=== PATIENT | female | born 1950 | race Caucasian/White ===

== ENCOUNTER → 2016-11-01 | Outpatient (CLI) | payer MEDICARE ==
--- NOTE | 2016-11-04 10:46 | MM ---
Reason for exam: screening (asymptomatic). Last mammogram was performed 1 year and 2 months ago. History: Patient is postmenopausal and had first child at age 37. MG discontinued stereo core LT of the left breast, August 08, 2014. Physical Findings: A clinical breast exam by your physician is recommended on an annual basis and results should be correlated with mammographic findings. MG 3D Screening Mammo W/Cad Bilateral CC and MLO view(s) were taken. Prior study comparison: September 05, 2015, bilateral MG 3d screening mammo w/cad. February 06, 2015, left breast MG 3d diag mammo w/cad LT. The breast tissue is extremely dense which could obscure a lesion on mammography. There is no suspicious abnormality. No significant changes when compared with prior studies. ASSESSMENT: Negative, BI-RAD 1 RECOMMENDATION: Routine screening mammogram of both breasts in 1 year.
== END | disposition home or self-care (01) ==
LOC: RADMAMWWP 08:47
PROVIDERS: ATTEND Family Medicine
DX: Z12.31 Encounter for screening mammogram for malignant neoplasm of breast (principal)
CPT/HCPCS: 77063; G0202

== ENCOUNTER → 2017-02-03 | Outpatient (CLI) | payer MEDICARE ==
--- NOTE | 2017-02-03 10:15 | US ---
EXAMINATION TYPE: US abdomen complete DATE OF EXAM: 02/03/2017 COMPARISON: NONE CLINICAL HISTORY: 66-year-old female Q61.01 Renal Cyst. TECHNIQUE: Multiple sonographic images of the abdomen are obtained. FINDINGS: Liver Length: 16.8 cm Gallbladder Wall: 0.2 cm CBD: 0.2 cm Spleen: 9.4 cm Right Kidney: 10.5 x 4.4 x 5.0 cm Left Kidney: 9.4 x 4.4 x 5.0 cm Pancreas: wnl Liver: wnl Gallbladder: wnl Evidence for sonographic Hernandez's sign: no CBD: wnl Spleen: wnl Right Kidney: No hydronephrosis. There is a 2.4 cm simple cyst at the lower pole. This previously me asured 2.7 cm. Left Kidney: No hydronephrosis. 7 mm echogenic focus at the mid to lower pole with associated typica l artifact suggests a nonobstructive calculus. Upper IVC: wnl Abd Aorta: Upper abdominal aorta borderline ectatic at 2.5 cm. IMPRESSION: 1. A 2.4 cm lesion lower pole right kidney is slightly smaller (2.7 cm previously) and now shows huong acteristics compatible with a benign, simple cyst. 2. Nonobstructive 7 mm left-sided renal calculus.
== END | disposition home or self-care (01) ==
LOC: RADUSWWP 08:31
PROVIDERS: ATTEND Family Medicine
DX: N20.0 Calculus of kidney (principal); N28.9 Disorder of kidney and ureter, unspecified
CPT/HCPCS: 76700

== ENCOUNTER → 2017-05-08 | Outpatient (CLI) | payer MEDICARE ==
--- NOTE | 2017-05-08 09:31 | CT ---
EXAMINATION TYPE: CT abdomen pelvis wo con DATE OF EXAM: 05/08/2017 COMPARISON: NONE HISTORY: Hematuria CT DLP: 250.3 mGycm Automated exposure control for dose reduction was used. TECHNIQUE: Helical acquisition of images from the lung bases through the pelvis. FINDINGS: Lack of intravenous contrast could compromise sensitivity. LUNG BASES: Minimal probable posterior dependent atelectatic changes or scarring present bilaterally. AORTA: No significant abnormality is appreciated. LIVER/GB: No significant abnormality is appreciated. PANCREAS: No significant abnormality is seen. SPLEEN: No significant abnormality is seen. ADRENALS: Some prominence of the adrenal glands suggestive of adrenal hyperplasia. KIDNEYS: Low dense focus is present at the lower pole of the right kidney compatible with possible cy st measuring 2.7 cm. There is a nonobstructive calculus in the lower pole the right kidney measuring approximately 6 to 7 mm, additional lower pole nonobstructive calculus measures approximately 3 to 4 mm, punctate calcifications are also present within the left kidney which do not appear obstructive. Proximal left ureteral calculus is present measuring approximately 3 to 4 mm. Mild left-sided hydrone phrosis. REPRODUCTIVE ORGANS: Not well seen. URINARY BLADDER: No significant abnormality is seen. BOWEL: Diverticular changes associated with the sigmoid colon. FREE AIR: No Free Air is visible. ASCITES: None visible. PELVIC ADENOPATHY: None visualized. RETROPERITONEAL ADENOPATHY: No Retroperitoneal Adenopathy visible. OSSEOUS STRUCTURES: Arthropathy noted within the hips. Degenerative disc changes in the lumbar spine . Spina bifida occulta noted within the sacrum IMPRESSION: BILATERAL NEPHROLITHIASIS, PROXIMAL LEFT URETERAL CALCULUS WITH MILD HYDRONEPHROSIS. Consider ultraso und follow-up for right renal cyst at the lower pole.
== END | disposition home or self-care (01) ==
LOC: RADCTMAIN 07:40
PROVIDERS: ATTEND Family Medicine
DX: N13.2 Hydronephrosis with renal and ureteral calculous obstruction (principal); Z88.0 Allergy status to penicillin; Z88.2 Allergy status to sulfonamides
CPT/HCPCS: 74176

== ENCOUNTER → 2017-05-27 | Outpatient (CLI) | payer MEDICARE ==
--- NOTE | 2017-05-27 10:12 | XR ---
EXAMINATION TYPE: XR KUB DATE OF EXAM: 05/27/2017 CLINICAL DATA: 67-year-old female with calculus of ureter, bilateral kidney stones, PHH COMPARISON: Correlation CT 05/08/2017 FINDINGS: Nonobstructive bowel gas pattern. Gassy bowel loops. Mild stool burden. A 7 mm right mid abdominal calcification is present. Bowel content obscures much of the left renal sh adow as well as a course of both ureters. Phlebolith in the low left hemipelvis and some vascular porsha cifications in the upper right hemipelvis. IMPRESSION: Known bilateral nephrolithiasis not well-seen on current radiograph secondary to prominent bowel cont ent. Only the dominant 7 mm right renal calculus is visualized.
== END | disposition home or self-care (01) ==
LOC: RADXRMAIN 09:30
PROVIDERS: ATTEND Urology
DX: N20.0 Calculus of kidney (principal)
CPT/HCPCS: 74018

== ENCOUNTER → 2018-02-11 | Outpatient (CLI) | payer MEDICARE ==
--- NOTE | 2018-02-11 08:15 | US ---
EXAMINATION TYPE: US abdomen comp/pelvis limited DATE OF EXAM: 02/11/2018 COMPARISON: CT 05/08/2017 and ultrasound 02/03/2017 CLINICAL HISTORY: 67-year-old female N28.9 Known renal disease or anomaly;cyst of rt ki. History of k idney stones TECHNIQUE: Multiple sonographic images of the abdomen and bladder are obtained. FINDINGS: EXAM MEASUREMENTS: Liver Length: 16.5 cm Gallbladder Wall: 0.2 cm CBD: 0.3 cm Spleen: 9.4 cm Right Kidney: 10.2 x 4.8 x 5.4 cm Left Kidney: 10.9 x 5.5 x 4.5 cm Pancreas: wnl Liver: slightly heterogeneous, possibly technical. No focal lesion. Gallbladder: wnl CBD: measures 0.6cm at the pancreatic head which can be within acceptable limits. Spleen: wnl Right Kidney: Mild fullness of renal pelvis, 2.5 cm cyst inferior pole, previously 2.4 cm, multiple calculi scattered throughout with largest measuring 0.6cm inferior pole. No calyceal dilatation is se en. Left Kidney: multiple small stones scattered throughout with largest measures 0.4cm inferior pole . No hydronephrosis. Upper IVC: wnl Abd Aorta: Upper abdominal aorta ectatic at 2.7 cm. Bladder: wnl Bilateral Jets Seen yes IMPRESSION: 1. Mild pelviectasis on the right versus extrarenal pelvis. No calyceal dilatation to suggest rossana h ydronephrosis. 2. Redemonstrated benign simple cyst measuring 2.5 cm at the right kidney lower pole. 3. Ectatic upper abdominal aorta are 2.7 cm. 4. Bilateral nonobstructive renal calculi measuring up to 6 cm.
== END | disposition home or self-care (01) ==
LOC: RADUSWWP 06:47
PROVIDERS: ATTEND Family Medicine
DX: N28.1 Cyst of kidney, acquired (principal); N20.0 Calculus of kidney; I77.811 Abdominal aortic ectasia
CPT/HCPCS: 76700; 76857

== ENCOUNTER → 2018-02-17 | Outpatient (CLI) | payer MEDICARE ==
--- NOTE | 2018-02-17 17:27 | BD ---
EXAMINATION TYPE: Axial Bone Density DATE OF EXAM: 02/17/2018 COMPARISON: 01.07.2014 CLINICAL HISTORY: 67 YR OLD FEMALE....ICD-10 CODE: M85.80 OSTEOPENIA Height: 66.3 Weight: 121 FRAX RISK QUESTIONS: Secondary Osteoporosis: YES 3. Menopause before 45: YES AT AGE 39 YRS OLD 4Current Tobacco Use: QUIT 5 YRS AGO RISK FACTORS HISTORY OF: Family History of Osteoporosis: YES, HER MOTHER Active: YES Diet low in dairy products/other sources of calcium: YES Postmenopausal woman: YES AT AGE 39... MEDICATIONS: Additional Medications: BP MEDS, ANTIANXIETY/DEPRESSANT, STATIN FOR CHOLESTEROL, VIT D Additional History: PADILLA, HYPERTENSION, CHOLESTEROL , EXAM MEASUREMENTS: Bone mineral densitometry was performed using the [employer] System. Bone mineral density as measured about the Lumbar spine is: ----- L1-L4(G/cm2): 0.889 T Score Values are as follows: ----- L1: -1.9 ----- L2: -2.0 ----- L3: -2.5 ----- L4: -3.2 ----- L1-L4: -2.4 Bone mineral density has: Decreased -8.9% since study of: 01.07.2014 Bone mineral density about the R hip (g/cm2): 0.709 Bone mineral density about the L hip (g/cm2): 0.704 T Score values are as follows: -----R Neck: -2.2 -----L Neck: -2.0 -----R Total: -2.4 -----L Total: -2.4 Bone mineral density has: Decreased -11.5% since study of: 01.07.2014 FRAX%s: THERE IS A 11.0% CHANCE FOR A MAJOR OSTEOPOROTIC FX AND A 2.5% FOR HIP FX....PROBABILITY OF FX IN 10 YRS TIME IMPRESSION: Osteoporosis (T Score less than -2.5). There is increased fracture risk and therapy is usually indicated based on age. Re-Screen 1-2 years. NOTE: T-SCORE=SD OF THE YOUNG ADULT MEAN.
--- NOTE | 2018-02-19 08:29 | MM ---
Reason for exam: screening (asymptomatic). Last mammogram was performed 1 year and 4 months ago. History: Patient is postmenopausal and had first child at age 37. MG discontinued stereo core LT of the left breast, August 08, 2014. Physical Findings: A clinical breast exam by your physician is recommended on an annual basis and results should be correlated with mammographic findings. MG 3D Screening Mammo W/Cad Bilateral CC and MLO view(s) were taken. Prior study comparison: November 01, 2016, bilateral MG 3d screening mammo w/cad. September 05, 2015, bilateral MG 3d screening mammo w/cad. The breast tissue is heterogeneously dense. This may lower the sensitivity of mammography. Areas of asymmetric densities are unchanged. No significant changes when compared with prior studies. ASSESSMENT: Negative, BI-RAD 1 RECOMMENDATION: Routine screening mammogram of both breasts in 1 year.
== END | disposition home or self-care (01) ==
LOC: RADMAMWWP 12:26
PROVIDERS: ATTEND Family Medicine
DX: Z12.31 Encounter for screening mammogram for malignant neoplasm of breast (principal); M81.0 Age-related osteoporosis without current pathological fracture
CPT/HCPCS: 77063; 77067; 77080

== ENCOUNTER → 2018-07-17 | Outpatient (CLI) | payer MEDICARE ==
--- NOTE | 2018-07-17 08:51 | CTL ---
EXAMINATION TYPE: CT Low Dose Lung DATE OF EXAM ORDERED: 07/17/2018 COMPARISON: None HISTORY: . Low Dose CT Lung Screening CT DLP: [address] CTDI: 1.76 mGy IV CONTRAST USED: None. SCREENING VISIT: First visit COMPARISON: None. TECHNIQUE: Low dose computed tomography scan was performed through the chest at 1 millimeter thick se ctions and reconstructed images in the coronal plane at [address] DIAGNOSTIC QUALITY: Satisfactory FINDINGS: LUNG NODULES: Left lung: no nodules identified. Right lung: Right middle lobe nodule is noted and measures 4 mm and demonstrates internal calcificati on and is felt to reflect granuloma. No additional right-sided nodule seen at this time. LUNGS: COPD: Severity: None Fibrosis: Severity:None Lymph nodes: None Other findings: Basilar as well as right middle lobe parenchymal scar or linear atelectasis. RIGHT PLEURAL SPACE: Effusion: None Calcification: None Thickening: None Pneumothorax: None LEFT PLEURAL SPACE: Effusion: None Calcification: None Thickening: None Pneumothorax: None HEART: Heart Size: Mildly enlarged Coronary calcification: Mild Pericardial effusion: None OTHER FINDINGS: Upper abdomen: No significant abnormality Bony thorax: Degenerative changes Supraclavicular region: No significant abnormalityOther: No significant abnormalityI IMPRESSION: 1 . granuloma right middle lobe. Continued follow-up is advised. FOLLOW UP CT CHEST RECOMMENDATION: Follow-up screening in one year LUNG RAD CATEGORY Category 1 benign
== END | disposition home or self-care (01) ==
LOC: RADCTMAIN 07:38
PROVIDERS: ATTEND Family Medicine
DX: Z12.2 Encounter for screening for malignant neoplasm of respiratory organs (principal); J84.10 Pulmonary fibrosis, unspecified; Z87.891 Personal history of nicotine dependence

== ENCOUNTER 2018-08-12 08:49 | Day surgery (SDC) | payer MEDICARE ==
[2018-08-11 10:36] VITALS: BMI 19.0
[2018-08-12 10:03] VITALS: TEMP 97.6
[2018-08-12] MEDS: LACTATED RINGERS 1,000 ML IV SCH ×2 (10:08→10:14)
[2018-08-12] MEDS ORDERED: fentaNYL (PF) 50 MCG/ML 2 ML AMP ONE (10:17)
[2018-08-12] MEDS ORDERED: MIDAZOLAM 2 MG/2 ML VIAL ONE (10:17)
[2018-08-12] MEDS ORDERED: PROPOFOL 10 MG/ML 20 ML VIAL IV ONE (10:17)
--- NOTE | 2018-08-12 10:34 | P.PCN ---
Date of Procedure: 08/12/18 Procedure(s) Performed: BRIEF HISTORY: Patient is a 68-year-old pleasant white female, scheduled for an elective colonoscopy as a part of evaluation of abdominal bloating, change in bowel habits and strong family history of colon cancer. Her mother was diagnosed with colon cancer at the maternal grandmother as well as maternal grand aunt diagnosed with colon cancer this area. She also has a first cousin with colon cancer at age 50. PROCEDURE PERFORMED: Colonoscopy. PREOPERATIVE DIAGNOSIS: Abdominal bloating, change in bowel habits and strong family history of colon cancer. IV sedation per Anesthesia. PROCEDURE: After informed consent was obtained, the patient, was brought into the endoscopy unit. IV sedation was administered by Anesthesia under continuous monitoring. Digital rectal examination was normal. Initially the Olympus CF-160 flexible video colonoscope was then inserted in the rectum, gradually advanced into the cecum without any difficulty. Careful examination was performed as the scope was gradually being withdrawn. Ileocecal valve and the appendiceal orifice were visualized and appeared normal. Prep was excellent. Mucosa of the cecum, ascending colon, transverse colon, descending colon, sigmoid colon, and rectum appeared normal. Scattered left-sided diverticulosis seen. Retroflexion was performed in the rectum and no lesions were seen. The patient tolerated the procedure well. IMPRESSION: Normal-appearing colon from rectum to cecum with no evidence of colorectal neoplasia Scattered sigmoid diverticulosis RECOMMENDATIONS: Findings of this examination were discussed with the patient as well as a family. She was advised to have a repeat screening colonoscopy in 5 years because of very strong family history of colon cancer..
[2018-08-12 11:46] VITALS: BP 136/75; PULSE 67; RESP 16
== END 2018-08-12 11:20 | disposition home or self-care (01) ==
LOC: ORWHC2ENDO 08:49
PROVIDERS: ATTEND Internal Medicine Gastroenterology
DX: K57.30 Diverticulosis of large intestine without perforation or abscess without bleeding (principal); Z80.0 Family history of malignant neoplasm of digestive organs; I10 Essential (primary) hypertension; Z79.82 Long term (current) use of aspirin; Z79.899 Other long term (current) drug therapy; F17.200 Nicotine dependence, unspecified, uncomplicated; Z88.2 Allergy status to sulfonamides; Z88.8 Allergy status to other drugs, medicaments and biological substances
CPT/HCPCS: 45378; J2250; J3010; J2704

== ENCOUNTER → 2018-11-13 | Outpatient (CLI) | payer MEDICARE ==
--- NOTE | 2018-11-13 09:08 | NM ---
EXAMINATION TYPE: NM hepatobiliary w EF DATE OF EXAM: 11/13/2018 COMPARISON: NONE INDICATION: Right upper quadrant pain TECHNIQUE: After the intravenous administration of 4.19 mCi Tc 99m Mebrofenin hepatobiliary scintigra phy is performed. Images were obtained immediately post injection. FINDINGS: There is prompt uptake and excretion of radiotracer by the liver. Extrahepatic ducts are identified at 9 minutes. The gallbladder is visualized within 12 minutes. Small bowel activity is noted within 27 minutes. At one hour 8 ounces of oral ensure plus is given to mimic CCK and gallbladder ejection fraction is c alculated at 60 %, which is in the normal range. (Normal >35% and <80%.). IMPRESSION: 1. Normal hepatobiliary scan
== END | disposition home or self-care (01) ==
LOC: RADNMMAIN 06:41
PROVIDERS: ATTEND Family Medicine
DX: R10.11 Right upper quadrant pain (principal); R19.7 Diarrhea, unspecified
CPT/HCPCS: 78226; A9537

== ENCOUNTER → 2019-02-19 | Outpatient (CLI) | payer MEDICARE ==
--- NOTE | 2019-02-19 07:33 | US ---
EXAMINATION TYPE: US duplex aorta DATE OF EXAM: 02/19/2019 COMPARISON: US abdomen 2017. CT May 08, 2017. CLINICAL HISTORY: I71.4 AAA. EXAM MEASUREMENTS: Abdominal Aorta: Proximal: 2.9 x 2.4 cm Mid: 1.8 x 1.7 cm Distal: 1.7 x 1.7 cm Bifurcation: rt, 1.3 x 1.0 cm lt, 1.0 x 1.0 cm Aorta is well-visualized on ultrasound through the bifurcation. Correlating with CT there is some ect lelo and mild peripheral plaque but no aneurysmal change. IMPRESSION: No ultrasound evidence for AAA.
--- NOTE | 2019-02-19 07:35 | US ---
EXAMINATION TYPE: US kidneys/renal and bladder DATE OF EXAM: 02/19/2019 COMPARISON: CT May 08, 2017 CLINICAL HISTORY: N28.1 RENAL CYST. History of renal stones EXAM MEASUREMENTS: Right Kidney: 9.9 x 4.2 x 4.8 cm Left Kidney: 10.8 x 5.1 x 5.9 cm Right Kidney: lower pole thin walled slightly lobulated cyst measures 2.7 x 2.4 x 2.2 cm, and nonobst ructing stone measures 0.7 x 0.8 x 0.6 cm. Left Kidney: lower pole partially obscured by bowel gas, two probable stones seen, one measures 0.9 x 0.8 x 0.7 cm and the second one measures 0.6 x 0.5 x 0.6 cm. Bladder: wnl Bilateral Jets seen: Yes There is no evidence for hydronephrosis at this point in time. The urinary bladder is anechoic. Rafal ateral ureteral jets are seen. IMPRESSION: Nonobstructing bilateral renal calculi redemonstrated. Fairly stable slightly lobulated o therwise simple appearing thin-walled 2.7 cm cyst lower pole right kidney. No concerning renal masses are noted.
== END | disposition home or self-care (01) ==
LOC: RADUSWWP 06:45
PROVIDERS: ATTEND Family Medicine
DX: N28.1 Cyst of kidney, acquired (principal); N20.0 Calculus of kidney; I71.4 Abdominal aortic aneurysm, without rupture
CPT/HCPCS: 76770; 93979

== ENCOUNTER → 2019-03-31 | Outpatient (CLI) | payer MEDICARE ==
--- NOTE | 2019-03-31 17:01 | BD ---
EXAMINATION TYPE: Axial Bone Density DATE OF EXAM: 03/31/2019 COMPARISON: 2013 CLINICAL HISTORY: Height: 66.5 Weight: 124 FRAX RISK QUESTIONS: Alcohol (3 or more units per day): no Family History (Parent hip fracture): no Glucocorticoids (More than 3mos): no (Ex: prednisone, prednisolone, methylprednisolone, dexamethasone, and hydrocortisone). History of Fracture in Adulthood: no Secondary Osteoporosis: 1. Type 1 Diabetes: no 2. Hyperthyroidism: no 3. Menopause before 45: YES 4. Malnutrition: no 5. Chronic liver disease: no Rheumatoid Arthritis: no Current Tobacco Use: no RISK FACTORS HISTORY OF: Family History of Osteoporosis: possibly Active: yes Diet low in dairy products/other sources of calcium: somewhat Postmenopausal woman: yes Take estrogen and/or progesterone medications: no Lost more than 2 inches in height since high school: no Frequent falls: no Poor Health: no Hyperparathyroidism: no Adrenal Insufficiency: no MEDICATIONS: Prednisone or other steroids: no Thyroid Medications: no Osteoporosis Medications: no Additional Medications: blood pressure med, cholesterol med , vitamin supplements Additional History: kidney stones EXAM MEASUREMENTS: Bone mineral densitometry was performed using the [employer] System. Bone mineral density as measured about the Lumbar spine is: ----- L1-L4(G/cm2): 0.865 (2018 = 0.889) T Score Values are as follows: ----- L2: -2.2 -2.0 ----- L3: -2.6 -2.5 ----- L4: -3.5 -3.2 ----- L1-L4: -2.6 -2.4 Bone mineral density has: Decreased -11.7% since study of: 01/07/2014...02/17/18 study done but is n ot in archive of DEXA unit but values from 2018 are in PAX) Bone mineral density about the R hip (g/cm2): 0.744 2018=0.732 Bone mineral density about the L hip (g/cm2): 0.747 0.760 T Score values are as follows: -----R Neck: -2.1 -2.2 -----L Neck: -2.1 -2.0 -----R Total: -2.3 -2.4 -----L Total: -2.3 -2.4 Bone mineral density has: Decreased -10.1% since study of: 01/07/2014...02/17/18 study done but is no t in archive of DEXA unit but values from 2018 are in PAX) IMPRESSION: Osteoporosis (T Score less than -2.5). There is increased fracture risk and therapy is usually indicated based on age. Re-Screen 1-2 years. NOTE: T-SCORE=SD OF THE YOUNG ADULT MEAN.
--- NOTE | 2019-04-01 11:00 | MM ---
Reason for exam: screening (asymptomatic). Last mammogram was performed 1 year and 1 month ago. History: Patient is postmenopausal and had first child at age 37. MG discontinued stereo core LT of the left breast, August 08, 2014. Physical Findings: A clinical breast exam by your physician is recommended on an annual basis and results should be correlated with mammographic findings. MG 3D Screening Mammo W/Cad Bilateral CC and MLO view(s) were taken. Prior study comparison: February 17, 2018, bilateral MG 3d screening mammo w/cad. November 01, 2016, bilateral MG 3d screening mammo w/cad. The breast tissue is heterogeneously dense. This may lower the sensitivity of mammography. There are benign appearing round calcifications bilaterally. There is no discrete abnormality. ASSESSMENT: Benign, BI-RAD 2 RECOMMENDATION: Routine screening mammogram of both breasts in 1 year.
== END | disposition home or self-care (01) ==
LOC: RADMAMWWP 09:01
PROVIDERS: ATTEND Family Medicine
DX: Z12.31 Encounter for screening mammogram for malignant neoplasm of breast (principal); M81.0 Age-related osteoporosis without current pathological fracture
CPT/HCPCS: 77063; 77067; 77080

== ENCOUNTER → 2019-10-27 | Outpatient (CLI) | payer MEDICARE ==
--- NOTE | 2019-10-27 09:49 | CTL ---
EXAMINATION TYPE: CT Low Dose Lung DATE OF EXAM ORDERED: 10/27/2019 HISTORY: skilled nursing tobacco use. Lung cancer screening CT DLP: [address]DI: 1.53 mGy Automated exposure control for dose reduction was used. SCREENING VISIT: First study after baseline COMPARISON: Prior low-dose lung screening CT study July 17, 2018. TECHNIQUE: Low dose computed tomography scan was performed through the chest at 1 mm thick sections a nd reconstructed images in the coronal plane at [address] DIAGNOSTIC QUALITY: Satisfactory FINDINGS: LUNG NODULES: No new greater than 4 mm noncalcified nodules. LUNGS: COPD: Severity: Mild to borderline moderate Fibrosis: Severity: Mild to moderate bibasilar Lymph nodes: No greater than 1 cm Other findings: None BILATERAL PLEURAL SPACE: Effusion: None Calcification: None Thickening: None Pneumothorax: None HEART: Heart Size: Normal Coronary calcification: None Pericardial effusion: None OTHER FINDINGS: Upper abdomen: Central densities left kidney could reflect calculi or vascular calcifications only pa rtially imaged, correlate clinically. Bony thorax: Mild multilevel spurring thoracic spine. Supraclavicular region: No significant abnormality Other: No significant abnormality IMPRESSION: No new nodules. FOLLOW UP CT CHEST RECOMMENDATION: Annual low-dose lung screening CT CT LUNG RAD: Lung-Rad 1 Negative
== END | disposition home or self-care (01) ==
LOC: RADCTMAIN 09:12
PROVIDERS: ATTEND Family Medicine
DX: Z12.2 Encounter for screening for malignant neoplasm of respiratory organs (principal); Z87.891 Personal history of nicotine dependence

== ENCOUNTER 2020-01-03 15:38 | Inpatient (IN) | payer MEDICARE ==
--- NOTE | 2020-01-03 16:33 | ED ---
General Adult HPI - General Chief complaint: Extremity Injury, Lower Stated complaint: Fall Time Seen by Provider: 01/03/20 15:43 Source: patient, EMS, RN notes reviewed Mode of arrival: EMS Limitations: no limitations - History of Present Illness Initial comments: Patient is a pleasant 69-year-old female presenting to the emergency Department with left leg injury. Patient states she was at her daughter's sitting on side of the bed when she slipped off and landed on her left upper leg. Patient had significant discomfort at that time. Patient was able to sit up however unable to move leg otherwise. Patient is not able to ambulate. No history of similar injury previously. No head injury or loss of consciousness. No history of chronic lung problems. No chest pain or dyspnea. No neck or back pain. No abdominal pain. - Related Data Home Medications Medication Instructions Recorded Confirmed Ascorbic Acid [Vitamin C] 500 mg PO 1200 02/08/16 08/12/18 Aspirin EC [Ecotrin Low Dose] 81 mg PO DAILY 02/08/16 08/12/18 Biotin 5 mg PO 1200 02/08/16 08/12/18 Cholecalciferol [Vitamin D3] 1,000 unit PO 1200 02/08/16 08/12/18 clonazePAM [KlonoPIN] 0.25 mg PO DAILY 02/08/16 08/12/18 Atorvastatin [Lipitor] 10 mg PO DAILY 08/11/18 08/12/18 lisinopriL [Zestril] 5 mg PO DAILY 08/11/18 08/12/18 Allergies Allergy/AdvReac Type Severity Reaction Status Date / Time alendronate sodium Allergy Chest Pain Verified 08/12/18 09:51 [From Fosamax] Penicillins Allergy Unknown Verified 08/12/18 09:51 Childhood Sulfa (Sulfonamide Allergy Unknown Verified 08/12/18 09:51 Antibiotics) triamterene Allergy excessive Verified 08/12/18 09:51 urination diphenhydramine AdvReac light-heade Verified 08/12/18 09:51 [From Benadryl] d dipyridamole [From Aggrenox] AdvReac Nausea & Verified 08/12/18 09:51 Vomiting, lt-headed Review of Systems ROS Statement: Those systems with pertinent positive or pertinent negative responses have been documented in the HPI. ROS Other: All systems not noted in ROS Statement are negative. Constitutional: Denies: fever Eyes: Denies: eye pain ENT: Denies: ear pain Respiratory: Denies: cough Cardiovascular: Denies: chest pain Endocrine: Denies: fatigue Gastrointestinal: Denies: abdominal pain Genitourinary: Denies: urgency Musculoskeletal: Reports: as per HPI Skin: Denies: rash Neurological: Denies: weakness Past Medical History Past Medical History: Hyperlipidemia, Hypertension, Osteoarthritis (OA), Thyroid Disorder Additional Past Medical History / Comment(s): Hashimotos-no Rx, hx migraines, diverticulosis, recent bloating, kidney stones History of Any Multi-Drug Resistant Organisms: None Reported Past Surgical History: Orthopedic Surgery Additional Past Surgical History / Comment(s): rt knee arthrocopy, laparoscopy Past Anesthesia/Blood Transfusion Reactions: No Reported Reaction Past Psychological History: No Psychological Hx Reported Smoking Status: Former smoker Past Alcohol Use History: None Reported Past Drug Use History: None Reported - Past Family History Mother Family Medical History: Cancer Additional Family Medical History / Comment(s): uterine Father Family Medical History: Cancer Additional Family Medical History / Comment(s): Esophageal CA. General Exam Limitations: no limitations General appearance: alert, in no apparent distress Head exam: Present: atraumatic, normocephalic Eye exam: Present: normal appearance Neck exam: Present: normal inspection. Absent: tenderness Respiratory exam: Present: normal lung sounds bilaterally Cardiovascular Exam: Present: regular rate, normal rhythm Expanded Peripheral pulses: 2+: Posterior Tibialis (R), Posterior Tibialis (L), Dorsalis Pedis (R), Dorsalis Pedis (L) GI/Abdominal exam: Present: soft. Absent: tenderness Extremities exam: Present: tenderness (Tenderness left lateral hip.), other (Left leg is shortened and internally rotated. Distally the extremity is neurovascular intact.) Back exam: Present: normal inspection. Absent: vertebral tenderness Neurological exam: Present: alert Psychiatric exam: Present: normal affect, normal mood Skin exam: Present: normal color Course Vital Signs 01/03/20 01/03/20 15:39 17:10 Temperature 98.2 F 98.2 F Pulse Rate 87 80 Respiratory 12 14 Rate Blood Pressure 117/91 108/66 O2 Sat by Pulse 99 99 Oximetry - Reevaluation(s) Reevaluation #1: 01/03/20 16:31 Patient still refuses pain medication Medical Decision Making - Medical Decision Making Patient reevaluated and updated. Case was discussed with practitioner who will review the films. he did call back and will admit for Dr. Amaya some - Radiology Data Radiology results: image reviewed ((Pelvis x-ray shows left IT fracture. Chest x-ray shows no acute process.) Disposition Clinical Impression: Intertrochanteric fracture of left hip Disposition: ADMITTED IP TO THIS HOSP Is patient prescribed a controlled substance at d/c from ED?: No Referrals: Jessica Kirkland DO [Primary Care Provider] - 1-2 days Decision Time: 17:34
--- NOTE | 2020-01-03 16:55 | XR ---
EXAMINATION TYPE: XR Hip LT and AP Pelvis DATE OF EXAM: 01/03/2020 COMPARISON: NONE HISTORY: Pain TECHNIQUE: 4 views FINDINGS: There is an acute comminuted intertrochanteric fracture of the left femur. There is no sign ificant displacement of the major fragments. The pelvic ring is intact. There is narrowing of hip uyen nt spaces with spurring. Sacroiliac joints are intact. IMPRESSION: Acute intertrochanteric fracture left femur.
--- NOTE | 2020-01-03 16:56 | XR ---
EXAMINATION TYPE: XR chest 1V DATE OF EXAM: 01/03/2020 COMPARISON: NONE HISTORY: Hip fracture TECHNIQUE: Single view FINDINGS: Heart is normal. Lungs are clear. Costophrenic angles are clear. There are no hilar masses. Thoracic aorta is atheromatous. IMPRESSION: No active cardiopulmonary disease.
[2020-01-03] MEDS ORDERED: ACETAMINOPHEN TAB 500 MG TAB PO STA (17:17)
[2020-01-03] MEDS ORDERED: ONDANSETRON 4 MG/2 ML VIAL IVP PRN (17:35)
[2020-01-03] MEDS ORDERED: ACETAMINOPHEN TAB 325 MG TAB PO PRN (17:35)
[2020-01-03] MEDS ORDERED: NALOXONE 0.4 MG/ML 1 ML VIAL IV PRN (17:35)
[2020-01-03] MEDS ORDERED: HYDROcodone/APAP 5-325MG 1 EACH TAB PO STA (17:37)
[2020-01-03] MEDS ORDERED: HYDROmorphone 0.5 MG/0.5 ML SYRINGE IVP PRN (17:37)
[2020-01-03 17:47] LABS: Basophils % (A) 0 %; Eosinophils % (A) 0 %; HCT 43.9 % (34.0-46.0); Lymphocytes # (A) 1.2 k/uL (1.0-4.8); Lymphocytes % (A) 8 %; MCH 30.2 pg (25.0-35.0); MCV 94.5 fL (80.0-100.0); Mean Platelet Volume 7.6; Monocytes # (A) 0.6 k/uL (0-1.0); Monocytes % (A) 4 %; Neutrophils # (A) 12.4 k/uL (1.3-7.7); Neutrophils % (A) 86 %; Platelet Count 255 k/uL (150-450); RBC 4.65 m/uL (3.80-5.40); RDW 12.8 % (11.5-15.5); WBC 14.4 k/uL (3.8-10.6)
[2020-01-03 17:56] LABS: ALT 17 U/L (4-34); AST 31 U/L (14-36); African American GFR (CKD) >90 (>60 ml/min/1.73 sqM); Albumin 4.2 g/dL (3.5-5.0); Alkaline Phosphatase 58 U/L (38-126); Anion Gap 6 mmol/L; Blood Urea Nitrogen 18 mg/dL (7-17); Calcium 9.3 mg/dL (8.4-10.2); Carbon Dioxide 27 mmol/L (22-30); Chloride 103 mmol/L (98-107); Glucose 91 mg/dL (74-99); Non-African American GFR(CKD) 89 (>60 ml/min/1.73 sqM); Potassium 4.4 mmol/L (3.5-5.1); Sodium 136 mmol/L (137-145); Total Bilirubin 0.9 mg/dL (0.2-1.3); Total Protein 6.7 g/dL (6.3-8.2)
[2020-01-03 18:03] LABS: INR 1.1 (<1.2); Partial Thromboplastin Time 21.4 sec (22.0-30.0); Prothrombin Time 10.9 sec (9.0-12.0)
[2020-01-03] MEDS: SODIUM CHLORIDE 0.9% 1,000 ML IV SCH (18:04)
--- NOTE | 2020-01-03 18:13 | P.HPOR ---
History of Present Illness H&P Date: 01/03/20 Chief Complaint: Left intertrochanteric femur fracture Patient is a 69-year-old male who presented to [facility] this afternoon after falling and injuring her left lower extremity. Patient was visiting her daughter when she slipped off of her bed landing on her left side on the floor. She was unable to weight-bear after the injury, EMS to bring the patient to the hospital. Upon arrival to the hospital, imaging and lab tests were done. Images demonstrated a displaced left intertrochanteric femur fracture with subtrochanteric extension. I was contacted by the emergency room staff. I was able to examine the patient at bedside in the ER, her was present. She is resting comfortably. She denies any right lower extremity pain, bilateral upper extremity pain, new onset cervical, thoracic or lumbar pain. She denies any previous surgery involving the left lower extremity. She is a relatively healthy female. She ambulates with no assistive devices. Currently she denies any headaches, lightheadedness, chest pain, shortness of breath, fever or chills. Review of Systems Constitutional: Reports as per HPI Past Medical History Past Medical History: Hyperlipidemia, Hypertension, Osteoarthritis (OA), Thyroid Disorder Additional Past Medical History / Comment(s): Hashimotos-no Rx, hx migraines, diverticulosis, recent bloating, kidney stones History of Any Multi-Drug Resistant Organisms: None Reported Past Surgical History: Orthopedic Surgery Additional Past Surgical History / Comment(s): rt knee arthrocopy, laparoscopy Past Anesthesia/Blood Transfusion Reactions: No Reported Reaction Past Psychological History: No Psychological Hx Reported Smoking Status: Former smoker Past Alcohol Use History: None Reported Past Drug Use History: None Reported - Past Family History Mother Family Medical History: Cancer Additional Family Medical History / Comment(s): uterine Father Family Medical History: Cancer Additional Family Medical History / Comment(s): Esophageal CA. Medications and Allergies Home Medications Medication Instructions Recorded Confirmed Type Ascorbic Acid [Vitamin C] 500 mg PO W/LUNCH 02/08/16 01/03/20 History Aspirin EC [Ecotrin Low Dose] 81 mg PO Q48H 02/08/16 01/03/20 History Cholecalciferol [Vitamin D3] 1,000 unit PO W/LUNCH 02/08/16 01/03/20 History clonazePAM [KlonoPIN] 0.25 mg PO DAILY 02/08/16 01/03/20 History Atorvastatin [Lipitor] 10 mg PO DAILY 08/11/18 01/03/20 History lisinopriL [Zestril] 2.5 mg PO DAILY 08/11/18 01/03/20 History Cyanocobalamin (Vitamin B-12) 1,000 mcg PO W/LUNCH 01/03/20 01/03/20 History [Vitamin B-12] Allergies Allergy/AdvReac Type Severity Reaction Status Date / Time alendronate sodium Allergy Chest Pain Verified 01/03/20 17:37 [From Fosamax] Penicillins Allergy Unknown Verified 01/03/20 17:37 Childhood Sulfa (Sulfonamide Allergy Unknown Verified 01/03/20 17:37 Antibiotics) triamterene Allergy excessive Verified 01/03/20 17:37 urination diphenhydramine AdvReac light-heade Verified 01/03/20 17:37 [From Benadryl] d dipyridamole [From Aggrenox] AdvReac Nausea & Verified 01/03/20 17:37 Vomiting, lt-headed Physical Examination Left lower extremity: No obvious open lesions or sores, there is no significant areas of erythema There is notable swelling in the anterior thigh The knee is flexed about 80 with shortening and external rotation when compared to the contralateral side Obvious tenderness with palpation of the proximal femur No pain with palpation surrounding the knee, lower leg or foot or ankle Plantar flexion, dorsiflexion, EHL, FHL are intact Strength was not assessed the lower extremity Sensory exam to light touch is intact at the extremity, dorsalis pedis pulses 2+ Results - Labs Labs: Abnormal Lab Results - Last 24 Hours (Table) 01/03/20 01/03/20 Range/Units 17:23 17:23 WBC 14.4 H (3.8-10.6) k/uL Neutrophils # 12.4 H (1.3-7.7) k/uL Sodium 136 L (137-145) mmol/L BUN 18 H (7-17) mg/dL H & H 01/03/20 Range/Units 17:23 Hgb 14.0 (11.4-16.0) gm/dL Hct 43.9 (34.0-46.0) % Result Diagrams: 01/03/20 17:23 01/03/20 17:23 - Diagnostic results Hip x-ray: report reviewed, image reviewed Assessment and Plan Assessment: Left intertrochanteric femur fracture with likely subtrochanteric extension Status post fall from standing Other medical comorbidities Plan: Imaging: X-rays reviewed along with reports. There is an obvious intertrochanteric femur fracture involving the left side, possible subtrochanteric extension. Further x-rays were ordered including full length femur. Computed tomography scan of the pelvis and femur were also ordered Plan: I was able to discuss the case, including with physical exam findings and imaging studies my attending Dr. Diaz. Our plan is to proceed with surgery, more specifically a intramedullary nail of the left femur. We would like to proceed with this on 01/04/2020. I discussed with the patient and her at bedside with Dr. Morgan will be available tomorrow prior to surgery to discuss any further questions, this including the risk and benefits along with postoperative period. Obtaining consent Nothing by mouth after midnight Pain control, oral and IV pain medication as needed Physical therapy after surgery DVT prophylaxis, will begin subcu medication after surgery Medical recommendations Further recommendations to follow after surgery Time with Patient: Less than 30
--- NOTE | 2020-01-03 18:37 | XR ---
EXAMINATION TYPE: XR femur LT DATE OF EXAM: 01/03/2020 COMPARISON: NONE HISTORY: Femur fracture TECHNIQUE: 2 views FINDINGS: 2 views of the distal femur were obtained and show no evidence of fracture of the mid and d istal shaft of the femur. The knee joint is anatomic. IMPRESSION: No fracture seen of the mid and distal femur.
[2020-01-03] MEDS: MORPHINE SULFATE 4 MG/ML SYRINGE IV PRN (19:03)
[2020-01-03] MEDS: HYDROmorphone 1 MG/ML 1 ML SYRINGE IVP PRN (22:22)
--- NOTE | 2020-01-03 23:46 | CT ---
EXAMINATION TYPE: CT pelvis wo con DATE OF EXAM: 01/03/2020 COMPARISON: None HISTORY: Femur LT side fracture. CT DLP: 1412.4 mGycm Automated exposure control for dose reduction was used. Images were obtained from the iliac crests to the subtrochanteric femurs without contrast. There is 2.5 cm cortical cyst lower pole right kidney. There is no sign of retroperitoneal adenopathy . Abdominal aorta is atheromatous. There is no free fluid in the pelvis. Bladder distends smoothly. U terus is anteverted. There is no inguinal hernia. There are sigmoid diverticula without sign of diver ticulitis. There is comminuted intertrochanteric fracture left femur with some impaction. There is displacement of the fragments up to 1.5 cm. There is no dislocation. There is no evidence of pelvic hematoma. The acetabulum is intact. Pelvic ring is intact. Sacroiliac joints appear normal. The sacrum and coccyx a ppear intact. There is mild disc space narrowing at L5-S1. There are degenerative cysts and hypertrop hic spurring at the right hip joint. There is similar hypertrophic degenerative change in the left hi p joint. IMPRESSION: Acute mildly displaced intertrochanteric fracture left femur. Osteoarthritis in both hip joints. No f racture seen of the bony pelvis.
--- NOTE | 2020-01-03 23:50 | CT ---
EXAMINATION TYPE: CT femur LT wo con DATE OF EXAM: 01/03/2020 COMPARISON: None HISTORY: Femur LT side fracture. CT DLP: 1412.4 mGycm Automated exposure control for dose reduction was used. Images were obtained from the acetabulum to the proximal tibia without contrast. There is a comminuted acute intertrochanteric fracture left femur. Displacement of the fragments is u p to 1.5 cm. There is impaction. There is no dislocation. There is some osteoarthritis in the left hi p joint. There is degenerative cyst formation in the acetabulum. The knee joint is intact. There is n o evidence of knee joint effusion. There is no sign of a soft tissue mass. I see no sign of soft tiss ue hematoma. IMPRESSION: Acute impacted comminuted intertrochanteric fracture left femur..
[2020-01-04] MEDS: MORPHINE SULFATE 4 MG/ML SYRINGE IV PRN (00:49)
[2020-01-04] MEDS: HYDROmorphone 1 MG/ML 1 ML SYRINGE IVP PRN ×3 (04:02→16:26)
--- NOTE | 2020-01-04 09:25 | P.PN ---
Progress Note - Text Progress Note Date: 01/04/20 I have reviewed the H&P and noted with Femi terry and I agree with it. Patient is a 69-year-old female who yesterday was attending to her special needs daughter when she sat down on her bed but missed the edge of the bed and fell directly onto her right hip under the hardwood floor. She stated immediate pain and inability to ambulate. The patient states that she needed EMS to come to the emergency department secondary to the pain and inability to ambulate. On arrival she was evaluated with appropriate imaging which found a intertrochanteric fracture of the left hip. She states she has never broken a bone before and that this is her first. She denies any fevers chills shortness of breath or chest pain at this time. We reviewed her medical history together. I agree with the H&P on this. The patient's past medical issue past surgical history medications and ALLERGIES all been reviewed and are documented elsewhere in the chart. 14 points review of systems completed and as stated in HPI or otherwise negative. Physical exam: On exam the patient is awake and alert in no acute distress and comfortable. The patient's left lower extremity is externally rotated and held the position of comfort at this time. Exquisite pain with any log roll or movement. There are no open wounds noted over the left hip. Patient is intact to light touch and pinprick sensation in the L2 S1 nerve distribution. She has 5 out of 5 strength in dorsiflexion and plantarflexion EHL and FHL. Knee flexion and extension are limited secondary to pain at this time. However she has no pain in her knee. She has palpable dorsalis pedis was posterior tibial pulses. Her compartments are soft and compressible. Heart and lungs are within normal limits she is able to breathe on her own without assistance and finish complete sentences. Assessment and plan: 1. Left hip closed intertrochanteric fracture, displaced, comminuted with subtrochanteric extension. -Nothing by mouth -Medical clearance for surgery today -Pain control -Add Flexeril 10 3 times a day when necessary spasm -Plan for OR today for intramedullary nail fixation of left hip
[2020-01-04] MEDS: CYCLOBENZAPRINE 10 MG TAB PO PRN (09:31)
[2020-01-04] MEDS ORDERED: ONDANSETRON 4 MG/2 ML VIAL ONE (18:28)
[2020-01-04] MEDS ORDERED: fentaNYL (PF) 50 MCG/ML 2 ML AMP ONE (18:28)
[2020-01-04] MEDS ORDERED: PROPOFOL 10 MG/ML 20 ML VIAL IV ONE (18:28)
[2020-01-04] MEDS ORDERED: MIDAZOLAM 2 MG/2 ML VIAL ONE (18:28)
[2020-01-04] MEDS ORDERED: PHENYLEPHRINE-0.9% NACL SYG 1 MG/10 ML SYRINGE ONE (18:28)
[2020-01-04] MEDS ORDERED: KETAMINE 10 MG/ML 20 ML VIAL ONE (18:28)
[2020-01-04] MEDS ORDERED: IV FLUID CONTINUATION 1,000 ML IV ONE (18:32)
[2020-01-04] MEDS ORDERED: SODIUM CHLORIDE 0.9% 100 ML with CLINDAMYCIN 600 MG IV ONE ×2 (18:53)
--- NOTE | 2020-01-04 20:25 | P.OP ---
Date of Procedure: 01/04/20 Preoperative Diagnosis: L hip closed, displaced, comminuted intertrochanteric fracture with subtrochanteric extension Postoperative Diagnosis: Same Procedure(s) Performed: Closed reduction and intramedullar nailing of left hip fracture Implants: Synthese TNF 380 x 10 mm 100 mm lag screw Two distal locking screws 32 and 36 mm Anesthesia: MAC, spinal Surgeon: Shamir Morgan Software Security Architect #1: Femi Patton Estimated Blood Loss (ml): 100 IV fluids (ml): 400 Urine output (ml): 100 Pathology: none sent Condition: stable Disposition: PACU Indications for Procedure: Patient is a 69-year-old female who presented to [facility] this afternoon after falling and injuring her left lower extremity. Patient was visiting her daughter when she slipped off of her bed landing on her left side on the floor. She was unable to weight-bear after the injury, EMS to bring the patient to the hospital. Upon arrival to the hospital, imaging and lab tests were done. Images demonstrated a displaced left intertrochanteric femur fracture with subtrochanteric extension. I was contacted by the emergency room staff. I was able to examine the patient at bedside in the ER, her was present. She is resting comfortably. She denies any right lower extremity pain, bilateral upper extremity pain, new onset cervical, thoracic or lumbar pain. She denies any previous surgery involving the left lower extremity. She is a relatively healthy female. She ambulates with no assistive devices. Operative Findings: Comminuted, closed, displaced intertrochanteric fracture of the left hip with reverse oblique subtrochanteric extension. Description of Procedure: patient was seen and examined in the preoperative area. All preoperative protocols were followed. The patient was accompanied by her normal I discussed the procedure at length with him in her there both in agreement and willing to undergo the procedure. The patient was given a weight-based dose of Ancef 2 g IVPB 30 minutes prior to incision. Informed consent was reviewed and obtained and signed. patient's transfer the operative suite by department of anesthesia. A spinal was performed by department of anesthesia. Once adequate anesthesia been obtain the patient was atraumatically and carefully transferred to the hand table. The post was placed. She was secured in place with a safety strap. Her left lower extremity placed in a ski boot and placed in the Fariba leg gracia. Her right leg was placed in a well-leg gracia. Her left arm was crossed across her chest and well-padded. Her right arm was laid out flat and well-padded. SCD was placed on nonoperative lower extremity. Once in good position and when adequate anesthesia been obtained the patient was reduced under fluoroscopic guidance. The left hip was visualized and a good reduced position. The left leg was then prepped and draped in normal sterile fashion. Fluoroscopic guidance was used tomake an incision approximately 27 proximal to the tip of the greater trochanter. This incision was taken down to the tip the greater trochanter and palpated. Guidewire was then placed using AP and lateral fluoroscopy to ensure that starting point. Once this was in good position opening reamer was placed over guidewire. Guidewire was then removed and the ball tip guidewire was placed. AP lateral fluoroscopy confirmed good placement of the ball-tipped guidewire at the superior portion of the patient's patellar region. Once this is in good position and sequential reaming of the femur started with a 9 reamer sequentially reaming by 0.5 mm each time until 11.5 mm reamer was passed. Good shatter was heard with 11.5 reamer and so a 10 mm nail was selected. This nail was measured to be 380 mm long. The nail was then passed over the guidewire atraumatically. And using fluoroscopic guidance was impacted into good position. Once in good position for leg screw placement guidewire for the lag screw was used to stalin out incision. Incision was made on the lateral aspect patient's thigh for the jig to place the leg screw. This was secured in place. Guidewire was then placed into the inferior portion of the femoral neck to ensure tip to apex distance of less than 10. Once this was in good position it was measured and 100 mm lag screw was selected. This like screw was then placed over the guidewire and using fluoroscopic guidance. Once in good position the locking nut was tightened on the proximal portion of the nail to ensure the leg screw was locked into position the guidewire was then removed and jig was removed for placement. This was confirmed to be in good position under AP and lateral fluoroscopy. Attention was then drawn to the distal portion of the nail with a distal static hole was selected perfect circles were obtained incision was made carried down to bone and a drill was placed in this area. Once drilled and confirmed to be in the nail on AP and lateral fluoroscopy the locking screw was placed. A second locking screw was placed in similar fashion within the proximal portion of the dynamic hole to ensure static locking. aP and lateral fluoroscopy confirmed good placement of lag screws and locking screws. Reduction of the fracture. All wounds were then irrigated with copious amounts of normal sterile saline. Proximal incision fascia was closed with 0 Vicryl in a simple fashion. Subcu was then closed of all areas with 0 Vicryl 2- 0 Vicryl and skin lindsay. Then dressed sterilely with that Xeroform 4 x 4's and Tegaderms. Patient tolerated the procedure very well. She was awakened by department incision transient postoperative care unit in stable condition.
--- NOTE | 2020-01-04 20:44 | P.PN ---
Progress Note - Text Progress Note Date: 01/04/20 Pt s/e in PACU. She is awake and alert. Minimal pain. Moving all 4 ext well. Still some residual weakness form spinal. Otherwise wiggling toes. Vitals are stable. She will go to the floor when stable per pacu attending and staff.
[2020-01-04] MEDS: SODIUM CHLORIDE 0.9% 1,000 ML IV SCH (22:22)
[2020-01-05] MEDS: traMADol 50 MG TAB PO PRN ×2 (08:07→16:01)
--- NOTE | 2020-01-05 08:53 | P.CONS ---
History of Present Illness - Reason for Consult Consult date: 01/04/20 medical eval - Chief Complaint fracture - History of Present Illness Raven Valente is a 69 yo F with PMH of osteoporosis, HTN, HLD who presented to the ED via EMS after a fall at home. She was getting out of bed when she lost her balance and landed on her L hip. She experienced severe pain at that time and was unable to move. EMS brought her to [facility], on presentation vitals were stable, CT pevlis showed displaced intertrochanteric fracture of L femur. EKG with NSR. Pain was controlled and she was admitted to Ortho. She presently denies fever, chills, chest pain, shortness of breath or abdominal pain. Review of Systems All systems: negative Constitutional: Denies chills, Denies fever Eyes: denies blurred vision, denies pain Ears, nose, mouth and throat: Denies headache, Denies sore throat Cardiovascular: Denies chest pain, Denies shortness of breath Respiratory: Denies cough Gastrointestinal: Denies abdominal pain, Denies diarrhea, Denies nausea, Denies vomiting Genitourinary: Denies dysuria, Denies hematuria Musculoskeletal: Reports as per HPI, Reports fractures, Reports gait dysfunction, Denies myalgias Integumentary: Denies pruritus, Denies rash Neurological: Denies numbness, Denies weakness Psychiatric: Denies anxiety, Denies depression Endocrine: Denies fatigue, Denies weight change Past Medical History Past Medical History: Hyperlipidemia, Hypertension, Osteoarthritis (OA), Thyroid Disorder Additional Past Medical History / Comment(s): 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 Current e-cig use. Past Drug Use History: None Reported - Past Family History Mother Family Medical History: Cancer Additional Family Medical History / Comment(s): uterine Father Family Medical History: Cancer Additional Family Medical History / Comment(s): Esophageal CA. Medications and Allergies Home Medications Medication Instructions Recorded Confirmed Type Ascorbic Acid [Vitamin C] 500 mg PO W/LUNCH 02/08/16 01/03/20 History Aspirin EC [Ecotrin Low Dose] 81 mg PO Q48H 02/08/16 01/03/20 History Cholecalciferol [Vitamin D3] 1,000 unit PO W/LUNCH 02/08/16 01/03/20 History clonazePAM [KlonoPIN] 0.25 mg PO DAILY 02/08/16 01/03/20 History Atorvastatin [Lipitor] 10 mg PO DAILY 08/11/18 01/03/20 History lisinopriL [Zestril] 2.5 mg PO DAILY 08/11/18 01/03/20 History Cyanocobalamin (Vitamin B-12) 1,000 mcg PO W/LUNCH 01/03/20 01/03/20 History [Vitamin B-12] Allergies Allergy/AdvReac Type Severity Reaction Status Date / Time alendronate sodium Allergy Chest Pain Verified 01/03/20 17:37 [From Fosamax] Penicillins Allergy Unknown Verified 01/03/20 17:37 Childhood Sulfa (Sulfonamide Allergy Unknown Verified 01/03/20 17:37 Antibiotics) triamterene Allergy excessive Verified 01/03/20 17:37 urination diphenhydramine AdvReac light-heade Verified 01/03/20 17:37 [From Benadryl] d dipyridamole [From Aggrenox] AdvReac Nausea & Verified 01/03/20 17:37 Vomiting, lt-headed Physical Exam Vitals: Vital Signs Temp Pulse Pulse Resp BP Pulse Ox 01/04/20 20:45 84 14 116/60 100 01/04/20 20:30 84 16 115/58 98 01/04/20 20:27 100.2 F H 103 H 18 119/58 94 L 01/04/20 15:00 99.0 F 72 18 114/69 92 L 01/04/20 10:59 98.3 F 83 16 118/72 93 L 01/04/20 07:00 98.5 F 75 18 115/63 92 L 01/04/20 00:05 98.0 F 67 14 109/55 96 01/03/20 23:22 14 Intake and Output 10/01/04/20 01/04/20 06:59 14:59 22:59 Intake Total 460 100 704 Output Total 500 650 Balance 460 -400 54 Intake: IV 704 Intake, IV Titration 160 100 Amount Sodium Chloride 0.9% 1, 160 100 000 ml @ 20 mls/hr IV . Q24H LUIS M Rx#:[id number] Oral 300 Output: Urine 500 550 Uretheral (Curran) 500 Estimated Blood Loss 100 General: well nourished, well developed, NAD. Vitals reviewed Eyes: PERRL, EOMI, conjunctiva normal HENT: normocephalic, mucus membranes moist Neck: supple, no JVD Lungs: normal respiratory effort, no wheezes or rales CV: Regular rate and rhythm, no murmur. Peripheral pulses 2+ Abdomen: soft, nondistended, no organomegaly MSK: LLE shortened and internally rotated, painful to palpation or movement Skin: warm and dry. Neuro: A&Ox3, normal mood and affect Results CBC & Chem 7: 01/03/20 17:23 01/03/20 17:23 Assessment and Plan (1) Hyperlipidemia Current Visit: Yes Status: Acute Code(s): E78.5 - HYPERLIPIDEMIA, UNSPECIFIED SNOMED Code(s): 78391967 (2) Hypertension Current Visit: Yes Status: Acute Code(s): I10 - ESSENTIAL (PRIMARY) HYPERTENSION SNOMED Code(s): 87658927 (3) Intertrochanteric fracture of left hip Current Visit: Yes Status: Acute Code(s): S72.142A - DISPLACED INTERTROCHANTERIC FRACTURE OF LEFT FEMUR, INIT SNOMED Code(s): 934613011 Plan: 1. L hip femur fracture. ASA 2, she is medically cleared for surgery today. Pain control 2. HLD. Hold lipitor at this time, will resume tomorrow 3. HTN. Resume lisinopril
--- NOTE | 2020-01-05 09:44 | FL ---
EXAMINATION TYPE: FL guidance operating room, XR femur LT DATE OF EXAM: 01/04/2020 CLINICAL HISTORY: Left femur nailing TECHNIQUE: Fluoroscopy. COMPARISON: CT pelvis 01/03/2020 FINDINGS: Fluoroscopic guidance was provided during procedure for performing physician. A total of 3.30 minutes of fluoroscopic time was utilized during the procedure and 5 spot images was acquired. P wendy see operative report for additional details. IMPRESSION: As Above.
[2020-01-05] MEDS: CYCLOBENZAPRINE 10 MG TAB PO PRN (12:07)
--- NOTE | 2020-01-05 13:21 | P.PN ---
Progress Note - Text Progress Note Date: 01/05/20 Pt s/e this AM. Doing well. Has not been up yet. States some pain in hip and thigh but better than yesterday. Slept last night. No f/c/sob/cp at this time. VSS GEN: AOX3 NAD Labs reviewed. Hgb dropped 1 pt since OR. Will transfuse today. 5/5 DF/PF/EHL/FHL Painfull KF/KE and HF at this time on L. RLE full strength and ROM 2/4 dp/pt pulses compartment soft and compressible. NO EEE around the incision. Dressing in place. CDI. A: 1. POD1 L hip IMN P: 1. Progressive WBAT with FF to start and assist 2. PT/OT 3. Pain control 4. GI/DVT ppx Lovenox if able 5. TEDs, SCDs 6. Ambulate, OOB for all meals. 7. ELOS: 1-2 days
[2020-01-05 15:24] LABS: Basophils % (A) 0 %; Eosinophils % (A) 0 %; HCT 33.5 % (34.0-46.0); Lymphocytes # (A) 1.3 k/uL (1.0-4.8); Lymphocytes % (A) 10 %; MCH 31.4 pg (25.0-35.0); MCHC 33.5 g/dL (31.0-37.0); MCV 93.8 fL (80.0-100.0); Mean Platelet Volume 8.1; Monocytes # (A) 0.7 k/uL (0-1.0); Monocytes % (A) 5 %; Neutrophils # (A) 11.2 k/uL (1.3-7.7); Neutrophils % (A) 83 %; Platelet Count 190 k/uL (150-450); RBC 3.57 m/uL (3.80-5.40); RDW 12.5 % (11.5-15.5); WBC 13.4 k/uL (3.8-10.6)
[2020-01-05 15:32] LABS: HGB 11.2 gm/dL (11.4-16.0)
--- NOTE | 2020-01-05 15:51 | P.PN ---
Subjective Progress Note Date: 01/05/20 Raven Valente is a 69 yo F with PMH of osteoporosis, HTN, HLD who presented to the ED via EMS after a fall at home. She was getting out of bed when she lost her balance and landed on her L hip. She experienced severe pain at that time and was unable to move. EMS brought her to [facility], on presentation vitals were stable, CT pevlis showed displaced intertrochanteric fracture of L femur. EKG with NSR. Pain was controlled and she was admitted to Ortho. She presently denies fever, chills, chest pain, shortness of breath or abdominal pain. 01/05/2020 postop day 1, left hip IMN. Tolerated procedure well. Awaiting PT- has not been out of bed yet pain currently controlled. Passing flatus. Denies chest pain, palpitations or shortness of breath. Hemoglobin down to 11.2, receiving 1 unit of packed RBCs. Borderline hypotension. Objective - Vital Signs Vital signs: Vital Signs Temp 98.3 F 01/05/20 15:00 Pulse 104 H 01/05/20 15:00 Resp 15 01/05/20 15:00 BP 96/61 01/05/20 15:00 Pulse Ox 96 01/05/20 15:00 Intake & Output 01/04/20 01/05/20 01/05/20 18:59 06:59 18:59 Intake Total 704 220 160 Output Total 500 1050 Balance 204 -830 160 Intake: IV 604 100 160 Sodium Chloride 0.9% 1, 160 000 ml @ 20 mls/hr IV . Q24H [facility] Rx#:[id number] Intake, IV Titration 100 120 Amount Sodium Chloride 0.9% 1, 100 120 000 ml @ 20 mls/hr IV . Q24H [facility] Rx#:[id number] Output: Urine 500 950 Uretheral (Curran) 500 Estimated Blood Loss 100 Other: Voiding Method Indwelling Catheter Indwelling Catheter - Exam General: well nourished, well developed, NAD. Vitals reviewed Eyes: PERRL, EOMI, conjunctiva normal HENT: normocephalic, mucus membranes moist Neck: supple, no JVD Lungs: normal respiratory effort, no wheezes or rales CV: Regular rate and rhythm, no murmur. Peripheral pulses 2+ Abdomen: soft, nondistended, no organomegaly, positive bowel sounds MSK: Left lower extremity, status post surgery, dressings clean dry and intact, mild tenderness with edema, positive pulses, no calf Tenderness. Skin: warm and dry. Neuro: A&Ox3, normal mood and affect - Labs CBC & Chem 7: 01/05/20 14:36 01/03/20 17:23 Labs: Abnormal Lab Results - Last 24 Hours (Table) 01/05/20 Range/Units 14:36 WBC 13.4 H (3.8-10.6) k/uL RBC 3.57 L (3.80-5.40) m/uL Hgb 11.2 L (11.4-16.0) gm/dL Hct 33.5 L (34.0-46.0) % Neutrophils # 11.2 H (1.3-7.7) k/uL Assessment and Plan Assessment: (1) Hyperlipidemia Current Visit: Yes Status: Acute Code(s): E78.5 - HYPERLIPIDEMIA, UNSPECI FIED SNOMED Code(s): 44808832 (2) Hypertension Current Visit: Yes Status: Acute Code(s): I10 - ESSENTIAL (PRIMARY) HYPERTENSION SNOMED Code(s): 06067900 (3) Intertrochanteric fracture of left hip, status post IMN Current Visit: Yes Status: Acute Code(s): S72.142A - DISPLACED INTERTROCHANTERIC FRACTURE OF LEFT FEMUR, INIT SNOMED Code(s): 188560729 (4) acute postoperative blood loss anemia, expected outcome, status post t ransfusion of packed RBCs Plan: Continue on current medication regime ,monitoring and symptomatic treatment. Aggressive pulmonary toileting with incentive spirometer reinforced. Anticoagulation/pain management as per orthopedic surgery. PT/OT. Borderline hypotension, continue holding YOANDY inhibitor-home med. Packed RBCs transfusion ordered. Resume statin. The impression and plan of care has been dictated as directed. : I performed a history and examination of this patient, discussed the same with the dictator. I agree with the dictator's note ,documented as a scribe. Any additional findings or plans will be noted.
[2020-01-05] MEDS: ATORVASTATIN 10 MG TAB PO SCH (22:10)
[2020-01-05] MEDS: SODIUM CHLORIDE 0.9% 1,000 ML IV SCH (22:11)
[2020-01-06] MEDS: traMADol 50 MG TAB PO PRN ×4 (04:53→22:21)
[2020-01-06 07:02] LABS: Basophils % (A) 0 %; Eosinophils # (A) 0.1 k/uL (0-0.7); Eosinophils % (A) 0 %; HCT 31.6 % (34.0-46.0); HGB 10.1 gm/dL (11.4-16.0); Lymphocytes # (A) 1.9 k/uL (1.0-4.8); Lymphocytes % (A) 14 %; MCH 30.3 pg (25.0-35.0); MCV 94.8 fL (80.0-100.0); Mean Platelet Volume 8.1; Monocytes % (A) 7 %; Neutrophils # (A) 10.5 k/uL (1.3-7.7); Neutrophils % (A) 76 %; Platelet Count 180 k/uL (150-450); RBC 3.33 m/uL (3.80-5.40); WBC 13.8 k/uL (3.8-10.6)
[2020-01-06] MEDS: ENOXAPARIN 40 MG/0.4 ML SYRINGE SQ SCH (08:30)
[2020-01-06] MEDS: CYCLOBENZAPRINE 10 MG TAB PO PRN ×2 (08:31→17:45)
--- NOTE | 2020-01-06 08:52 | P.PN ---
Subjective Progress Note Date: 01/06/20 Principal diagnosis: status post IM nail left femur fracture patient is evaluated today at bedside, she is resting comfortably in a chair. She was able to get up with physical therapy yesterday, mainly from bed to chair. Urinary catheter is still in position. The pain is well-controlled at this time. Currently she denies any chest pain, shortness of breath, fever or chills. Objective - Vital Signs Vital signs: Vital Signs Temp 98.4 F 01/06/20 07:33 Pulse 88 01/06/20 07:33 Resp 16 01/06/20 07:33 BP 93/60 01/06/20 07:33 Pulse Ox 96 01/06/20 07:33 Intake & Output 01/05/20 01/06/20 01/06/20 18:59 06:59 18:59 Intake Total 160 Output Total 1000 1000 Balance -840 -1000 Intake: IV 160 Sodium Chloride 0.9% 1, 160 000 ml @ 20 mls/hr IV . Q24H [facility] Rx#:[id number] Output: Urine 1000 1000 Other: Voiding Method Indwelling Catheter - Exam left lower extremity: Bandages are in good position and condition, no obvious drainage. soft tissue swelling is notable and normal upper thigh towards the knee, compartments remain soft. Calf is soft, no tenderness with palpation. Plantar flexion, dorsiflexion, EHL, FHL are intact, no strength deficit appreciated. Dorsalis pedis pulses 2+, sensory exam light touch throughout the extremities intact - Labs CBC & Chem 7: 01/06/20 05:59 01/03/20 17:23 Labs: Abnormal Lab Results - Last 24 Hours (Table) 01/05/20 01/06/20 Range/Units 14:36 05:59 WBC 13.4 H 13.8 H (3.8-10.6) k/uL RBC 3.57 L 3.33 L (3.80-5.40) m/uL Hgb 11.2 L 10.1 L (11.4-16.0) gm/dL Hct 33.5 L 31.6 L (34.0-46.0) % Neutrophils # 11.2 H 10.5 H (1.3-7.7) k/uL Assessment and Plan Assessment: status post intramedullary nail left femur fracture Plan: pain control, continue with oral medication DVT prophylaxis, continue with Lovenox, we'll likely transition aspirin 325 mg daily after discharge Wound care, bandages were changed today After therapy gets patient out of bed today, anticipate discontinuation urinary catheter Toe-touch weightbearing at this time, utilizing a walker at all times Possible discharged home today, we'll discuss discharge planning with case management Time with Patient: Less than 30
[2020-01-06 09:36] LABS: Anion Gap 10.5 mmol/L (4.00-12.00); BUN/Creat Ratio 23.33 Ratio (12.00-20.00); Calcium 8.7 mg/dL (8.7-10.3); Carbon Dioxide 27.5 mmol/L (21.6-31.8); Non-African American GFR(CKD) 92.4 (60.0-200.0); Potassium 4.2 mmol/L (3.5-5.5)
[2020-01-06] MEDS ORDERED: SODIUM CHLORIDE 0.9% 500 ML 500 ML IV ONE (13:37)
--- NOTE | 2020-01-06 13:40 | P.PN ---
Subjective Progress Note Date: 01/06/20 Raven Valente is a 69 yo F with PMH of osteoporosis, HTN, HLD who presented to the ED via EMS after a fall at home. She was getting out of bed when she lost her balance and landed on her L hip. She experienced severe pain at that time and was unable to move. EMS brought her to [facility], on presentation vitals were stable, CT pevlis showed displaced intertrochanteric fracture of L femur. EKG with NSR. Pain was controlled and she was admitted to Ortho. She presently denies fever, chills, chest pain, shortness of breath or abdominal pain. 01/05/2020 postop day 1, left hip IMN. Tolerated procedure well. Awaiting PT- has not been out of bed yet pain currently controlled. Passing flatus. Denies chest pain, palpitations or shortness of breath. Hemoglobin down to 11.2, receiving 1 unit of packed RBCs. Borderline hypotension. 01/06/2020 sitting up in chair, with ice to surgical site, doing well. Pain controlled. Earlier this morning after having a bowel movement, upon standing up, developed transient lightheadedness with hypotension. Denies nausea/vomiting or diarrhea. Vital signs currently stable. Denies chest pain, palpitations or shortness of breath. Denies lightheadedness, dizziness or focal deficits. T-max 99.9, currently afebrile, WBC 13.8. Mild tachycardia during the night, resolved. Hemoglobin/platelet trending down, 10.1/180. Objective - Vital Signs Vital signs: Vital Signs Temp 98.4 F 01/06/20 07:33 Pulse 88 01/06/20 07:33 Resp 16 01/06/20 07:33 BP 93/60 01/06/20 07:33 Pulse Ox 96 01/06/20 07:33 Intake & Output 01/05/20 01/06/20 01/06/20 18:59 06:59 18:59 Intake Total 160 600 Output Total 1000 1000 1300 Balance -840 -1000 -700 Intake: IV 160 Sodium Chloride 0.9% 1, 160 000 ml @ 20 mls/hr IV . Q24H [facility] Rx#:[id number] Oral 600 Output: Urine 1000 1000 1300 Other: Voiding Method Indwelling Catheter - Exam General: Sitting up in chair, alert and oriented 3, NAD. Vitals reviewed Eyes: PERRL, EOMI, conjunctiva normal HENT: normocephalic, oral mucosa moist Neck: supple, no JVD Lungs: normal respiratory effort CV: Regular rate and rhythm, no murmur. Peripheral pulses 2+ Abdomen: soft, nondistended, no organomegaly, positive bowel sounds MSK: Left lower extremity, status post surgery, dressing clean dry and intact, mild tenderness with trace edema, positive pulses, no calf tenderness. Skin: warm and dry. No rashes. Neuro: Cranial nerves II through XII grossly intact, no focal deficits,HERNANDEZ - Labs CBC & Chem 7: 01/06/20 05:59 01/06/20 05:59 Labs: Abnormal Lab Results - Last 24 Hours (Table) 01/05/20 01/06/20 01/06/20 Range/Units 14:36 05:59 05:59 WBC 13.4 H 13.8 H (3.8-10.6) k/uL RBC 3.57 L 3.33 L (3.80-5.40) m/uL Hgb 11.2 L 10.1 L (11.4-16.0) gm/dL Hct 33.5 L 31.6 L (34.0-46.0) % Neutrophils # 11.2 H 10.5 H (1.3-7.7) k/uL Sodium 134 L (135-145) mmol/L BUN/Creatinine Ratio 23.33 H (12.00-20.00) Ratio Assessment and Plan Assessment: (1) Hyperlipidemia Current Visit: Yes Status: Acute Code(s): E78.5 - HYPERLIPIDEMIA, UNSPECIFIED SNOMED Code(s): 05718724 (2) Hypertension Current Visit: Yes Status: Acute Code(s): I10 - ESSENTIAL (PRIMARY) HYPERTENSION SNOMED Code(s): 96610839 (3) Intertrochanteric fracture of left hip, status post IMN Current Visit: Yes Status: Acute Code(s): S72.142A - DISPLACED INTERTROCHANTERIC FRACTURE OF LEFT FEMUR, INIT SNOMED Code(s): 486191528 (4) acute postoperative blood loss anemia, expected outcome, status post transfusion of packed RBCs (5) isolated, transient vasovagal episode (6) fevers, improving, UA ordered Plan: Continue on current medication regime ,monitoring and symptomatic treatment. UA /CXR ordered. Continue with aggressive pulmonary toileting with incentive spirometer reinforced. Pain management, anticoagulation as per orthopedic surgery. PT/OT. Continue holding YOANDY inhibitor-home med, borderline hypotension. Close monitoring of renal function, electrolytes, hemoglobin, platelets with repeat labs ordered for a.m. The impression and plan of care has been dictated as directed. : I performed a history and examination of this patient, discussed the same with the dictator. I agree with the dictator's note ,documented as a scribe. Any additional findings or plans will be noted.
[2020-01-06] MEDS: PANTOPRAZOLE 40 MG/10 ML VIAL IVP SCH (14:43)
--- NOTE | 2020-01-06 15:08 | XR ---
EXAMINATION TYPE: XR chest 1V portable DATE OF EXAM: 01/06/2020 COMPARISON: 01/03/2020 INDICATION: Fevers, mild tachycardia TECHNIQUE: Single frontal view of the chest is obtained. FINDINGS: The heart size is normal. The pulmonary vasculature is normal. The lungs are clear. IMPRESSION: 1. No acute pulmonary process.
[2020-01-06 17:19] LABS: Appearance,Urine Clear (Clear); Bilirubin,Urine Negative (Negative); Blood,Urine Negative (Negative); Color,Urine Colorless; Glucose,Urine (UA) Negative (Negative); Ketones,Urine Negative (Negative); Leukocyte Esterase,Urine Negative (Negative); Nitrite,Urine Negative (Negative); Protein,Urine Negative (Negative); Specific Gravity,Urine 1.002 (1.001-1.035); Urobilinogen,Urine <2.0 mg/dL (<2.0)
[2020-01-06] MEDS: SODIUM CHLORIDE 0.9% 1,000 ML IV SCH (17:43)
[2020-01-06] MEDS: ACETAMINOPHEN TAB 500 MG TAB PO PRN (20:38)
[2020-01-06] MEDS: ATORVASTATIN 10 MG TAB PO SCH (20:39)
[2020-01-07 06:12] LABS: Basophils % (A) 0 %; Eosinophils # (A) 0.2 k/uL (0-0.7); Eosinophils % (A) 2 %; Lymphocytes # (A) 1.6 k/uL (1.0-4.8); Lymphocytes % (A) 20 %; MCH 30.3 pg (25.0-35.0); MCHC 32.1 g/dL (31.0-37.0); MCV 94.5 fL (80.0-100.0); Mean Platelet Volume 8.2; Monocytes # (A) 0.8 k/uL (0-1.0); Monocytes % (A) 10 %; Neutrophils # (A) 5.1 k/uL (1.3-7.7); Neutrophils % (A) 65 %; Platelet Count 168 k/uL (150-450); RBC 2.76 m/uL (3.80-5.40); RDW 13.3 % (11.5-15.5); WBC 7.9 k/uL (3.8-10.6)
[2020-01-07 06:36] LABS: HGB 8.4 gm/dL (11.4-16.0)
[2020-01-07] MEDS: ENOXAPARIN 40 MG/0.4 ML SYRINGE SQ SCH (08:11)
[2020-01-07] MEDS: CAFFEINE CITRATE 60 MG/3 ML VIAL PO SCH (08:11)
[2020-01-07] MEDS: PANTOPRAZOLE 40 MG/10 ML VIAL IVP SCH (08:11)
[2020-01-07] MEDS: traMADol 50 MG TAB PO PRN ×3 (08:12→18:51)
--- NOTE | 2020-01-07 09:51 | P.PN ---
Subjective Progress Note Date: 01/07/20 Principal diagnosis: L hip IT to subtroch fracture, closed, displaced, comminuted Pt s/e doing better this AM. Was up to bathroom and room yesterday. Noticed some brusing today. Painful in the thigh. Denies f/c/sob/cp at this time. Objective - Vital Signs Vital signs: Vital Signs Temp 98.6 F 01/07/20 07:00 Pulse 77 01/07/20 07:00 Resp 18 01/07/20 07:00 BP 110/59 01/07/20 07:00 Pulse Ox 95 01/06/20 19:20 Intake & Output 01/06/20 01/07/20 01/07/20 18:59 06:59 18:59 Intake Total 600 80 Output Total 2300 1700 600 Balance -1700 -1620 -600 Intake: IV 80 Sodium Chloride 0.9% 1, 80 000 ml @ 20 mls/hr IV . Q24H [facility] Rx#:[id number] Oral 600 Output: Urine 2300 1700 600 Uretheral (Curran) 600 Other: Voiding Method Indwelling Catheter Indwelling Catheter - Exam GEN: AOX3, NAD VSS 5/5 df/pf/ehl/fhl b/l LE SILT L2-S1 2/4 DP/PT pulses compartments soft and compressible. Dressing CDI - Labs CBC & Chem 7: 01/07/20 05:39 01/06/20 05:59 Labs: Abnormal Lab Results - Last 24 Hours (Table) 01/07/20 01/07/20 Range/Units 05:39 07:43 RBC 2.76 L (3.80-5.40) m/uL Hgb 8.4 L D (11.4-16.0) gm/dL Hct 26.0 L (34.0-46.0) % Crossmatch See Detail Assessment and Plan Assessment: POD 3 closed reduction with IMN of L hip subtroch fracture. Plan: 1. Progreesive WBAT with assist 2. Pain control 3. GI/DVT ppx. Send home on ASA 325 mg daily for 4 weeks 4. TEDs SCDs 5. Trend labs, TF if needed 6. Appreciate medical management 7. PT/OT 8. Home today vs tomorrow
[2020-01-07 09:54] LABS: African American GFR (CKD) 113.7 (60.0-200.0); Calcium 8.2 mg/dL (8.7-10.3); Non-African American GFR(CKD) 98.1 (60.0-200.0); Potassium 3.8 mmol/L (3.5-5.5)
[2020-01-07] MEDS: CYCLOBENZAPRINE 10 MG TAB PO PRN ×2 (11:57→22:16)
--- NOTE | 2020-01-07 12:10 | P.PN ---
Subjective Progress Note Date: 01/07/20 Raven Valente is a 69 yo F with PMH of osteoporosis, HTN, HLD who presented to the ED via EMS after a fall at home. She was getting out of bed when she lost her balance and landed on her L hip. She experienced severe pain at that time and was unable to move. EMS brought her to [facility], on presentation vitals were stable, CT pevlis showed displaced intertrochanteric fracture of L femur. EKG with NSR. Pain was controlled and she was admitted to Ortho. She presently denies fever, chills, chest pain, shortness of breath or abdominal pain. 01/05/2020 postop day 1, left hip IMN. Tolerated procedure well. Awaiting PT- has not been out of bed yet pain currently controlled. Passing flatus. Denies chest pain, palpitations or shortness of breath. Hemoglobin down to 11.2, receiving 1 unit of packed RBCs. Borderline hypotension. 01/06/2020 sitting up in chair, with ice to surgical site, doing well. Pain controlled. Earlier this morning after having a bowel movement, upon standing up, developed transient lightheadedness with hypotension. Denies nausea/vomiting or diarrhea. Vital signs currently stable. Denies chest pain, palpitations or shortness of breath. Denies lightheadedness, dizziness or focal deficits. T-max 99.9, currently afebrile, WBC 13.8. Mild tachycardia during the night, resolved. Hemoglobin/platelet trending down, 10.1/180. 01/07/2020 ambulating to and from bathroom with minimal assistance. Tolerated exertion well. Hemoglobin continues trending down, receiving 1 unit of packed RBCs for hemoglobin 8.4. Platelets 168. T-max 99.9, WBC normalized. UA negative and chest x-ray reported no acute process. Denies chest pain, palpitations or shortness of breath. Denies lightheadedness, dizziness or focal deficits. Objective - Vital Signs Vital signs: Vital Signs Temp 98.6 F 01/07/20 07:00 Pulse 77 01/07/20 07:00 Resp 18 01/07/20 07:00 BP 110/59 01/07/20 07:00 Pulse Ox 95 01/06/20 19:20 Intake & Output 01/06/20 01/07/20 01/07/20 18:59 06:59 18:59 Intake Total 600 80 Output Total 2300 1700 600 Balance -1700 -1620 -600 Intake: IV 80 Sodium Chloride 0.9% 1, 80 000 ml @ 20 mls/hr IV . Q24H [facility] Rx#:[id number] Oral 600 Output: Urine 2300 1700 600 Uretheral (Curran) 600 Other: Voiding Method Indwelling Catheter Indwelling Catheter - Exam General: Sitting up in chair, alert and oriented 3, NAD. Vitals reviewed Eyes: PERRL, EOMI, conjunctiva normal HENT: normocephalic, oral mucosa moist Neck: supple, no JVD Lungs: normal respiratory effort CV: Regular rate and rhythm, no murmur. Peripheral pulses 2+ Abdomen: soft, nondistended, no organomegaly, positive bowel sounds MSK: Left lower extremity, status post surgery, dressing clean dry and intact, thigh ecchymosis, mild tenderness with trace edema, positive pulses, no calf tenderness. Skin: warm and dry. No rashes. Neuro: Cranial nerves II through XII grossly intact, no focal deficits,HERNANDEZ - Labs CBC & Chem 7: 01/07/20 05:39 01/07/20 05:39 Labs: Abnormal Lab Results - Last 24 Hours (Table) 01/07/20 01/07/20 01/07/20 Range/Units 05:39 05:39 07:43 RBC 2.76 L (3.80-5.40) m/uL Hgb 8.4 L D (11.4-16.0) gm/dL Hct 26.0 L (34.0-46.0) % Creatinine 0.5 L (0.6-1.5) mg/dL Calcium 8.2 L (8.7-10.3) mg/dL Crossmatch See Detail Assessment and Plan Assessment: (1) Hyperlipidemia Current Visit: Yes Status: Acute Code(s): E78.5 - HYPERLIPIDEMIA, UNSPECIFIED SNOMED Code(s): 83809476 (2) Hypertension Current Visit: Yes Status: Acute Code(s): I10 - ESSENTIAL (PRIMARY) HYPERTENSION SNOMED Code(s): 07324871 (3) Intertrochanteric fracture of left hip, status post IMN Current Visit: Yes Status: Acute Code(s): S72.142A - DISPLACED INTERTROCHANTERIC FRACTURE OF LEFT FEMUR, INIT SNOMED Code(s): 034479433 (4) acute postoperative blood loss anemia, expected outcome, status post transfusion of packed RBCs (5) isolated, transient vasovagal episode (6) fevers, improving Plan: Continue on current medication regime ,monitoring and symptomatic treatment.One unit of packed RBCs ,close monitoring of hemoglobin, platelets.PT/OT. Pain management/anticoagulation as per surgery.Aggressive pulmonary toileting with incentive spirometer reinforced. The impression and plan of care has been dictated as directed. : I performed a history and examination of this patient, discussed the same with the dictator. I agree with the dictator's note ,documented as a scribe. Any additional findings or plans will be noted.
[2020-01-07] MEDS: SODIUM CHLORIDE 0.9% 1,000 ML IV SCH (17:51)
[2020-01-07] MEDS: ACETAMINOPHEN TAB 500 MG TAB PO PRN (22:14)
[2020-01-07] MEDS: ATORVASTATIN 10 MG TAB PO SCH (22:16)
[2020-01-08] MEDS: traMADol 50 MG TAB PO PRN ×2 (01:03→08:19)
[2020-01-08] MEDS ORDERED: PANTOPRAZOLE 40 MG TABLET PO SCH (07:30)
[2020-01-08] MEDS: CYCLOBENZAPRINE 10 MG TAB PO PRN (08:17)
[2020-01-08] MEDS: ENOXAPARIN 40 MG/0.4 ML SYRINGE SQ SCH ×2 (08:18→08:26)
[2020-01-08] MEDS: ACETAMINOPHEN TAB 500 MG TAB PO PRN (08:20)
[2020-01-08] MEDS: CAFFEINE CITRATE 60 MG/3 ML VIAL PO SCH (08:23)
[2020-01-08] MEDS: SODIUM CHLORIDE 0.9% 1,000 ML IV SCH (08:24)
[2020-01-08 08:29] LABS: Basophils % (A) 0 %; Eosinophils # (A) 0.1 k/uL (0-0.7); Eosinophils % (A) 2 %; HCT 30.1 % (34.0-46.0); Lymphocytes # (A) 1.3 k/uL (1.0-4.8); Lymphocytes % (A) 15 %; MCH 31.1 pg (25.0-35.0); MCHC 33.2 g/dL (31.0-37.0); MCV 93.8 fL (80.0-100.0); Mean Platelet Volume 7.9; Monocytes # (A) 0.7 k/uL (0-1.0); Monocytes % (A) 8 %; Neutrophils # (A) 6.5 k/uL (1.3-7.7); Neutrophils % (A) 73 %; Platelet Count 237 k/uL (150-450); RBC 3.21 m/uL (3.80-5.40); RDW 13.9 % (11.5-15.5); WBC 8.9 k/uL (3.8-10.6)
[2020-01-08 08:30] VITALS: BP 111/62; PULSE 91; RESP 18; TEMP 98.3
--- NOTE | 2020-01-08 10:38 | P.PN ---
Subjective Progress Note Date: 01/08/20 Principal diagnosis: status post IM nail left femur fracture Patient evaluated today at bedside, she's resting in her hospital chair. She's been up ambulating to the bathroom with minimal difficulty. She notes the swelling in the leg has improved. The pain is improved. She denies any chest pain, shortness of breath, fever or chills, nausea or vomiting. Objective - Vital Signs Vital signs: Vital Signs Temp 98.3 F 01/08/20 07:00 Pulse 91 01/08/20 07:00 Resp 18 01/08/20 07:00 BP 111/62 01/08/20 07:00 Pulse Ox 94 L 01/08/20 07:00 Intake & Output 01/07/20 01/08/20 01/08/20 18:59 06:59 18:59 Intake Total 610 300 160 Output Total 600 Balance 10 300 160 Intake: IV 160 Sodium Chloride 0.9% 1, 160 000 ml @ 20 mls/hr IV . Q24H [facility] Rx#:[id number] Oral 300 300 Blood Product 310 Rc As-1 Unit 310 [id number] Output: Urine 600 Uretheral (Curran) 600 Other: Voiding Method Indwelling Catheter Toilet # Voids 3 4 - Exam left lower extremity: Bandages are in good position and condition, no obvious drainage. soft tissue swelling is notable and normal upper thigh towards the knee, compartments remain soft. Calf is soft, no tenderness with palpation. Plantar flexion, dorsiflexion, EHL, FHL are intact, no strength deficit appreciated. Dorsalis pedis pulses 2+, sensory exam light touch throughout the extremities intact - Labs CBC & Chem 7: 01/08/20 08:05 01/07/20 05:39 Labs: Abnormal Lab Results - Last 24 Hours (Table) 01/07/20 01/08/20 Range/Units 07:43 08:05 RBC 3.21 L (3.80-5.40) m/uL Hgb 10.0 L D (11.4-16.0) gm/dL Hct 30.1 L (34.0-46.0) % Crossmatch See Detail Assessment and Plan Assessment: status post intramedullary nail left femur fracture Plan: pain control, plan for discharge home on tramadol, Tylenol and Flexeril DVT prophylaxis, aspirin 325 mg daily Wound care discussed Toe-touch weightbearing at this time, utilizing a walker at all times Discharge home today Time with Patient: Less than 30
--- NOTE | 2020-01-08 10:45 | P.DS ---
Providers Date of admission: 01/03/20 17:35 Expected date of discharge: 01/08/20 Attending physician: Shamir Morgan DO Consults: 01/03/20 17:36 Consult Physician Urgent Consulting Provider: Rolf Kirkland Reason/Comments: Medical clearance and medical care Do you want consulting provider notified?: Yes Primary care physician: Jessica Kirkland [place] Hospital Course: Date of admission: 01/03/2020 Date of discharge: 01/08/2020 Admission diagnosis: Displaced left intertrochanteric femur fracture with subtrochanteric extension Discharge diagnosis: Status post closed reduction with intramedullary nailing left intertrochanteric femur fracture with subtrochanteric extension Attending physician: Dr. Morgan Surgical procedures: Closed reduction with intramedullary nailing left intertrochanteric femur fracture with subtrochanteric extension Brief history: Patient is a 69-year-old female who presented to [facility] on 01/03/2020 after falling and injuring her left leg. It was determined she had a displaced left intertrochanteric femur fracture with subtrochanteric extension after x-rays were done. Our orthopedic team was contacted regarding this, she was admitted under our care with plan for surgical intervention. Internal medicine was consult the patient for management and clearance for surgery. Patient underwent surgery on 01/04/2020. Hospital course: Details of patient's surgery can be found in operative report. Patient tolerated the procedure well and was subsequently transported to orthopedic floor. Patient's orthopeidc and medical care was provided daily. Patient had daily laboratory tests performed for evaluation of overall blood counts. Patient had daily physical therapy to include strengthening range of motion as well as education with walker ambulation. Patient was treated with Lovenox for their postoperative DVT prophylaxis during their inpatient stay. Patient was noted to have a relatively uneventful postoperative course. Patient reported satisfactory pain control with oral pain medications by postoperative day 0. Patient showed satisfactory progress with physical therapy. Patient moved steadily through the program and had no difficulty meeting the goals by postoperative day 4. Given patient's otherwise satisfactory course and having met physical therapy goals, plan is to discharge patient home on postoperative day 4. Discharge condition/disposition: Patient will be discharged home in stable condition. Discharge medications: Instructions are given on resumption of patient's normal daily medications per primary care recommendation, in addition patient will be prescribed tramadol 50 mg, Flexeril 10 mg, Tylenol 1000 mg, ferrous sulfate 325 mg, aspirin 325 mg, Colace 100 mg, MiraLAX 17 mg. Discharge instructions: 1. Wound care and infection precautions, keep incision dry and covered while showering, no lotions, creams, moisturizers. No soaking, tubs, pools, hottubs. Do not scrub over the incision. 2. Toe-touch weightbearing with walker 3. Ice and elevate when necessary. Do not exceed 20 minutes per hour with ice pack. 4. Utilize compression sleeve until seen at first follow up appointment. 5. Visiting nursing care. 6. Home physical therapy. 7. Pain meds and anticoagulants per prescription. 8. Pain medication has potential to cause constipation. Increase oral fluid and fiber intake. Contact primary care provider if you have not had a bowel movement within 48 hours after discharge 9. No anti-inflammatory medication until discussed at first post operative visit, this including Motrin, Aleve, Mobic, Diclofenac. 10. Follow up in office at 2 weeks postop with Clayton Patton PA-C 11. Follow up with your primary care doctor 7-10 days after discharge. 12. Contact [facility] with any questions, . Procedures: Closed reduction with intramedullary nailing left femur fracture Patient Condition at Discharge: Good Plan - Discharge Summary Discharge Rx Participant: No New Discharge Prescriptions: New Aspirin 325 mg PO DAILY #30 tab Docusate [Colace] 100 mg PO BID PRN #30 capsule PRN Reason: Constipation Ferrous Sulfate [Feosol] 325 mg PO BID #30 tab Cyclobenzaprine [Flexeril] 10 mg PO TID PRN #30 tab PRN Reason: Spasms polyethylene glycoL 3350 [Miralax] 17 gm PO DAILY PRN #15 packet PRN Reason: Constipation Acetaminophen Tab [Tylenol Tab] 1,000 mg PO Q6HR PRN #40 tablet PRN Reason: Pain traMADol HCl [Ultram] 50 mg PO Q6H PRN #28 tab PRN Reason: Pain No Action clonazePAM [KlonoPIN] 0.25 mg PO DAILY Cholecalciferol [Vitamin D3] 1,000 unit PO W/LUNCH Aspirin EC [Ecotrin Low Dose] 81 mg PO Q48H Ascorbic Acid [Vitamin C] 500 mg PO W/LUNCH lisinopriL [Zestril] 2.5 mg PO DAILY Atorvastatin [Lipitor] 10 mg PO DAILY Cyanocobalamin (Vitamin B-12) [Vitamin B-12] 1,000 mcg PO W/LUNCH Discharge Medication List Ascorbic Acid [Vitamin C] 500 mg PO W/LUNCH 02/08/16 [History] Aspirin EC [Ecotrin Low Dose] 81 mg PO Q48H 02/08/16 [History] Cholecalciferol [Vitamin D3] 1,000 unit PO W/LUNCH 02/08/16 [History] clonazePAM [KlonoPIN] 0.25 mg PO DAILY 02/08/16 [History] Atorvastatin [Lipitor] 10 mg PO DAILY 08/11/18 [History] lisinopriL [Zestril] 2.5 mg PO DAILY 08/11/18 [History] Cyanocobalamin (Vitamin B-12) [Vitamin B-12] 1,000 mcg PO W/LUNCH 01/03/20 [History] Acetaminophen Tab [Tylenol Tab] 1,000 mg PO Q6HR PRN #40 tablet 01/08/20 [Rx] Aspirin 325 mg PO DAILY #30 tab 01/08/20 [Rx] Cyclobenzaprine [Flexeril] 10 mg PO TID PRN #30 tab 01/08/20 [Rx] Docusate [Colace] 100 mg PO BID PRN #30 capsule 01/08/20 [Rx] Ferrous Sulfate [Feosol] 325 mg PO BID #30 tab 01/08/20 [Rx] polyethylene glycoL 3350 [Miralax] 17 gm PO DAILY PRN #15 packet 01/08/20 [Rx] traMADol HCl [Ultram] 50 mg PO Q6H PRN #28 tab 01/08/20 [Rx] Follow up Appointment(s)/Referral(s): Jessica Kirkland DO [Primary Care Provider] - 1-2 days [facility], [NON-STAFF] - Shamir Morgan DO [Doctor of Osteopathic Medicine] - 2 Weeks Patient Instructions/Handouts: Hip Fracture (GEN), Closed Reduction Internal Fixation of Leg Fracture in Adults (DC) Activity/Diet/Wound Care/Special Instructions: Orthopedic discharge instructions: 1. Keep incisions dry and covered while showering 2. Ice left lower extremity often 3. Toe-touch weightbearing with walker 4. Home physical therapy and nursing 5. Pain medication as needed 6. Aspirin 355 mg daily for DVT prophylaxis 7. Plan for follow-up at [facility] in 2 weeks, please contact office for any questions [phone] Discharge Disposition: HOME WITH HOME HEALTH SERVICES
--- NOTE | 2020-01-08 22:14 | PN ---
PROGRESS NOTE I am covering for Dr. Kirkladn. DATE OF SERVICE: 01/08/2020 This 69 year old woman who was admitted after left hip fracture and surgery, is improving significantly. Patient has hematoma. No chest pain. No palpitations. No fever. The chest x-ray done yesterday showed no evidence of acute parenchymal lesions. EXAM: Alert and oriented times three. Pulse is 93, blood pressure 140/60, respirations 16, temperature 98.4, pulse ox 93 percent on room air. HEENT: Conjunctivae normal. CARDIOVASCULAR: S1, S2 muffled. RESPIRATIONS: Breath sounds diminished in the bases. No rhonchi. No crackles. ABDOMEN: Soft, nontender. LEGS: Status post left hip surgery. There is some ecchymosis present. NERVOUS SYSTEM: No focal deficits. LABS: WBC 8.2, hemoglobin is 10. ASSESSMENT: 1. Status post intramedullary nailing of the left intertrochanteric hip fracture. 2. Hypertension. 3. Hyperlipidemia. 4. Hematoma of the left hip, stable. 5. History of hyperlipidemia. 6. History of degenerative joint disease. 7. History of Radha thyroiditis. 8. History of migraine. RECOMMENDATIONS AND DISCUSSION: Recommend to continue current medications, management and symptomatic treatment. Resume the home medications. Closely follow with primary physician in 1-2 weeks or p.r.n. Otherwise, rest of the recommendations per Orthopedic surgery. Further recommendations to follow. MMODL / IJN: [id number] /
--- NOTE | 2020-01-10 09:14 | CDI ---
Documentation Clarification Form Date: 01/10/20 From: Manda Thomas CCS Phone: If you have a question about this query, please contact Sandie Meredith, [employer] Apprentice at [phone] between 8am and 5pm. Admit Date: 01/03/20 Discharge Date: 01/08/20 Patient Name: Raven Valente Visit Number: [id number] ATTENTION: The Clinical Documentation Specialists (CDI) and [facility] Coding Staff appreciate your assistance in clarifying documentation. Please respond to the clarification below the line at the bottom and electronically sign. The CDI & [facility] Coding staff will review the response and follow-up if needed. Please note: Queries are made part of the Legal Health Record. If you have any questions, please contact the author of this message via ITS. Dear Dr. Morgan, Hypotension is documented in the PNs 01/05-01/06. PN 01/05 documents: Earlier this morning after having a bowel movement, upon standing up, developed transient lightheadedness with hypotension. Continue holding YOANDY inhibitor-home med, borderline hypotension.Close monitoring of renal function, electrolytes, hemoglobin, platelets with repeat labs ordered for a.m. PNs 01/05-01/06 document: 5) isolated, transient vasovagal episode History/Risk Factors: HTN, ABLA, Post operative status, Fever Clinical Indicators: Vasovagal episode, Hypotension Patients B/P: 96/61, 93/60 Labs: Hgb 8.4, Hct 26.0 Treatment: Monitor, Hold YOANDY inhibitor, RBC transfusion In your professional opinion, can you please specify the etiology of the hypotension if known? Orthostatic Hypotension Postural Hypotension Idiopathic Hypotension Drug Induced Hypotension (please specify drug) Chronic Hypotension Postoperative Hypotension-unexpected outcome Other Condition, please specify Unable to determine Likely Postural hypotension MTDD
== END 2020-01-08 13:17 | disposition home health service (06) | DRG 481 ==
LOC: EC 15:38 → 4SSUR 17:35
PROVIDERS: ADMIT Orthopaedic Surgery; ATTEND Orthopaedic Surgery
PROC: 0QS736Z Reposition Left Upper Femur with Intramedullary Internal Fixation Device, Percutaneous Approach (ICD-10-PCS; principal; 2020-01-04 18:32)
PROC: 30233N1 Transfusion of Nonautologous Red Blood Cells into Peripheral Vein, Percutaneous Approach (ICD-10-PCS; 2020-01-07)
DX: S72.142A Displaced intertrochanteric fracture of left femur, initial encounter for closed fracture (principal); D62 Acute posthemorrhagic anemia; I10 Essential (primary) hypertension; E78.5 Hyperlipidemia, unspecified; M19.90 Unspecified osteoarthritis, unspecified site; E06.3 Autoimmune thyroiditis; G43.909 Migraine, unspecified, not intractable, without status migrainosus; K57.90 Diverticulosis of intestine, part unspecified, without perforation or abscess without bleeding; M81.0 Age-related osteoporosis without current pathological fracture; I95.1 Orthostatic hypotension; R50.9 Fever, unspecified; K59.00 Constipation, unspecified; Y92.009 Unspecified place in unspecified non-institutional (private) residence as the place of occurrence of the external cause; W01.0XXA Fall on same level from slipping, tripping and stumbling without subsequent striking against object, initial encounter; Z79.82 Long term (current) use of aspirin; Z79.899 Other long term (current) drug therapy; Z87.442 Personal history of urinary calculi; Z98.890 Other specified postprocedural states; Z87.891 Personal history of nicotine dependence; Z85.42 Personal history of malignant neoplasm of other parts of uterus; Z88.0 Allergy status to penicillin; Z88.2 Allergy status to sulfonamides; Z88.8 Allergy status to other drugs, medicaments and biological substances; Z80.0 Family history of malignant neoplasm of digestive organs
CPT/HCPCS: 36415; 71045; 72192; 73502; 80048; 80053; 81003; 85025; 85610; 85730; 86850; 86900; 86901; 86920; 93005; 99285

== ENCOUNTER → 2020-09-01 | Outpatient (CLI) | payer MEDICARE ==
--- NOTE | 2020-09-06 13:24 | MM ---
Reason for exam: screening (asymptomatic). Last mammogram was performed 1 year and 5 months ago. History: Patient is postmenopausal and had first child at age 37. MG discontinued stereo core LT of the left breast, August 08, 2014. Physical Findings: A clinical breast exam by your physician is recommended on an annual basis and results should be correlated with mammographic findings. MG 3D Screening Mammo W/Cad Bilateral CC and MLO view(s) were taken. Prior study comparison: March 31, 2019, bilateral MG 3d screening mammo w/cad. February 17, 2018, bilateral MG 3d screening mammo w/cad. The breast tissue is heterogeneously dense. This may lower the sensitivity of mammography. There is an indeterminate grouping of calcifications in the right upper outer quadrant. This finding is changed when compared with previous exams. ASSESSMENT: Incomplete: need additional imaging evaluation, BI-RAD 0 RECOMMENDATION: Diagnostic mammogram of the right breast. [facility] will attempt to contact patient to return for supplemental views. CHERIE
== END | disposition home or self-care (01) ==
LOC: RADMAMWWP 09:10
PROVIDERS: ATTEND Family Medicine
DX: Z12.31 Encounter for screening mammogram for malignant neoplasm of breast (principal); Z78.0 Asymptomatic menopausal state
CPT/HCPCS: 77063; 77067

== ENCOUNTER → 2020-09-12 | Outpatient (CLI) | payer MEDICARE ==
--- NOTE | 2020-09-12 11:50 | MM ---
Reason for exam: additional evaluation requested from abnormal screening. Last mammogram was performed less than 1 month ago. History: Patient is postmenopausal and had first child at age 37. MG discontinued stereo core LT of the left breast, August 08, 2014. Physical Findings: Nurse did not find any significant physical abnormalities on exam. MG Work Up Mamm w CAD RT Spot compression CC, spot compression LM, CC with magnification, and LM with magnification view(s) were taken of the right breast. Prior study comparison: September 01, 2020, bilateral MG 3d screening mammo w/cad. March 31, 2019, bilateral MG 3d screening mammo w/cad. The breast tissue is heterogeneously dense. This may lower the sensitivity of mammography. There is a 0.4 x 0.2 x 0.1cm grouping of fine heterogeneous calcifications in the right upper outer posterior breast and stereotactic core biopsy is recommended. These results were verbally communicated with the patient and result sheet given to the patient on 09/12/20. ASSESSMENT: Suspicious, BI-RAD 4 RECOMMENDATION: Stereotactic core biopsy of the right breast. Called Dr. Gill's office with mammographic findings and has scheduled an appointment for the patient for 10/12/20 at 1:[address] Esteves. Biopsy scheduled for 10/19/20 at 8:00. PRELIMINARY REPORT CALLED AND FAXED TO DR. ESTEVES ON 09/12/20.
== END | disposition home or self-care (01) ==
LOC: RADMAMWWP 10:00
PROVIDERS: ATTEND Family Medicine
DX: R92.2 Inconclusive mammogram (principal); R92.1 Mammographic calcification found on diagnostic imaging of breast; Z78.0 Asymptomatic menopausal state
CPT/HCPCS: 77065

== ENCOUNTER → 2020-10-12 | Outpatient (CLI) | payer MEDICARE ==
[2020-10-12 12:54] VITALS: BP 141/85; PULSE 87; RESP 18; TEMP 98.1
--- NOTE | 2020-10-12 13:20 | P.GSHP ---
History of Present Illness H&P Date: 10/12/20 Chief Complaint: Mammographic abnormality right breast Raven is a 70 year old white female seen in consultation for Desirae Cedeño physician it assistant with a mammographic abnormality in the right breast. [place] [id number] after which additional views of the right breast were recommended. The additional views revealed a 0.4 x 0.2 cm croupy defined heterogeneous calcifications in the upper outer quadrant region and stereotactic core biopsy was recommended. Patient does not complain of any lumps masses or nodules of concern in either breast. She is not complaining of any nipple discharge or skin changes. She has not had any prior surgery in the breast. She has not had any breast trauma or infections. Nicotine: stopped 2013, prior 1/2 PPD 30 years; e cigarettes 1-2 cartridges caffeine: at least 2 big cups a day chocolate: daily Family history: mother: uterine cancer father: Esophageal cancer Hormonal History: menarche: 12 , breast fed: yes, age at : 37 menopause: 47 BCP: none hormones: no Surgical history: laporoscopy for fertility work up arthoscopic right knee hip fracture left Medical history: HTN high cholesterol anxiety Social history: Nicotine: Stopped in 2013 now uses E cigarettes Alcohol:none drugs: none - Constitutional Constitutional: Denies chills, Denies fever - EENT Eyes: denies blurred vision, denies pain Ears: deny: decreased hearing, tinnitus Ears, nose, mouth and throat: Denies headache, Denies sore throat - Breasts Breasts: bilateral: as per HPI - Cardiovascular Cardiovascular: Denies chest pain, Denies shortness of breath - Respiratory Respiratory: Reports as per HPI - Gastrointestinal Comment: Diverticulosis Gastrointestinal: Reports constipation, Denies abdominal pain, Denies diarrhea, Denies nausea, Denies vomiting - Genitourinary (Female) Genitourinary: Denies dysuria, Denies hematuria - Menstruation Menstruation: Reports postmenopausal - Musculoskeletal Comment: arthritis Musculoskeletal: Reports as per HPI - Integumentary Integumentary: Denies pruritus, Denies rash - Neurological Neurological: Denies numbness, Denies weakness - Psychiatric Psychiatric: Reports anxiety - Endocrine Endocrine: Denies fatigue, Denies weight change - Hematologic/Lymphatic Comment: aspirin daily - Allergic/Immunologic Allergic/Immunologic: Reports as per HPI, Reports seasonal allergies Past Medical History Past Medical History: Hyperlipidemia, Hypertension, Osteoarthritis (OA), Thyroid Disorder Additional Past Medical History / Comment(s): 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 Smoking Status: Former smoker Past Alcohol Use History: None Reported Additional Past Alcohol Use History / Comment(s): Quit smoking 2012, smoked 1/2 - 1 ppd x 25 yrs. Current e-cig use. Past Drug Use History: None Reported - Past Family History Mother Family Medical History: Cancer, Diabetes Mellitus, Hyperlipidemia, Hypertension, Thyroid Disorder Additional Family Medical History / Comment(s): uterine Father Family Medical History: Cancer, Coronary Artery Disease (CAD), Hyperlipidemia, Hypertension Additional Family Medical History / Comment(s): Esophageal CA. Medications and Allergies Home Medications Medication Instructions Recorded Confirmed Type Ascorbic Acid [Vitamin C] 500 mg PO W/LUNCH 02/08/16 10/12/20 History Aspirin EC [Ecotrin Low Dose] 81 mg PO Q48H 02/08/16 10/12/20 History Cholecalciferol [Vitamin D3] 1,000 unit PO W/LUNCH 02/08/16 10/12/20 History clonazePAM [KlonoPIN] 0.25 mg PO DAILY 02/08/16 10/12/20 History Atorvastatin [Lipitor] 10 mg PO DAILY 08/11/18 10/12/20 History polyethylene glycoL 3350 [Miralax] 17 gm PO DAILY PRN #15 packet 01/08/20 10/12/20 Rx lisinopriL [Zestril] 10 mg PO DAILY 10/05/20 10/12/20 History Ascorbic Acid [Vitamin C] 500 mg PO DAILY 10/12/20 10/12/20 History Biotin 5,000 mcg PO DAILY 10/12/20 10/12/20 History Allergies Allergy/AdvReac Type Severity Reaction Status Date / Time alendronate sodium Allergy Chest Pain Verified 10/12/20 12:48 [From Fosamax] Penicillins Allergy Unknown Verified 10/12/20 12:48 Childhood Sulfa (Sulfonamide Allergy Unknown Verified 10/12/20 12:48 Antibiotics) triamterene Allergy excessive Verified 10/12/20 12:48 urination diphenhydramine AdvReac light-heade Verified 10/12/20 12:48 [From Benadryl] d dipyridamole [From Aggrenox] AdvReac Nausea & Verified 10/12/20 12:48 Vomiting, lt-headed Surgical - Exam Vital Signs Temp Pulse Resp BP Pulse Ox 98.1 F 87 18 141/85 99 10/12/20 12:52 10/12/20 12:52 10/12/20 12:52 10/12/20 12:52 10/12/20 12:52 BMI 20.4 - General no distress - Eyes normal ocular movement - ENT normal nares - Neck no masses, trachea midline - Respiratory normal respiratory effort, clear to auscultation - Cardiovascular Heart Sounds: normal: S1, S2 - Abdomen Abdomen: soft, non tender, no guarding, no rigid, no rebound - Integumentary normal turgor - Neurologic no disoriented, no combative - Musculoskeletal uses a cane - Psychiatric oriented to time, oriented to person, oriented to place, speech is normal, memory intact Breast Exam: BRA: 36C inspection: grade 3 ptosis bilateral, right breast larger than left breast palpation: right breast: Multiple positional exam fibrocystic changes, no dominant masses or nodules of concern Right axilla: No adenopathy of concern Left breast: Nevus on anterior left breast which is followed by dermatology, multi-positional exam fibrocystic changes, no dominant masses or nodules of concern Left axilla: No adenopathy of concern Results Mammogram reviewed with Dr. Dominguez from radiology Assessment and Plan Assessment: Impression: HTN high cholesterol anxiety Mammographic abnormality right breast/microcalcifications Asymmetry of the breasts Nevus left breast being followed by dermatology Fibrocystic breast changes Plan: 1. Stereotactic core biopsy right breast 2. Follow-up after stereotactic core biopsy Risks and benefits of the procedure discussed with the patient. Risks include but are not limited to bleeding, infection, reaction to the anesthetic. Additionally alternative such as watchful waiting with open biopsy are discussed but not recommended. CC: Desirae Vargas
== END ==
LOC: WWCWWP 12:36
PROVIDERS: ATTEND Surgery
DX: D24.2 Benign neoplasm of left breast (principal); N60.12 Diffuse cystic mastopathy of left breast; I10 Essential (primary) hypertension; E78.00 Pure hypercholesterolemia, unspecified; F41.9 Anxiety disorder, unspecified; E78.5 Hyperlipidemia, unspecified; M19.90 Unspecified osteoarthritis, unspecified site; Z79.82 Long term (current) use of aspirin; Z79.899 Other long term (current) drug therapy; Z87.891 Personal history of nicotine dependence; Z88.0 Allergy status to penicillin; Z88.2 Allergy status to sulfonamides; Z88.8 Allergy status to other drugs, medicaments and biological substances

== ENCOUNTER → 2020-10-19 | Day surgery (SDC) | payer MEDICARE ==
[2020-10-19 07:20] VITALS: RESP 16
--- NOTE | 2020-10-19 08:42 | P.OP ---
Date of Procedure: 10/19/20 Preoperative Diagnosis: Microcalcifications of concern right breast Postoperative Diagnosis: Same Procedure(s) Performed: Stereotactic core biopsy right breast Anesthesia: local Surgeon: Na Esteves Pathology: other Condition: stable Disposition: same day Indications for Procedure: Microcalcifications of concern right breast upper outer posterior aspect Operative Findings: Microcalcifications of concern noted and specimen Description of Procedure: Raven is a 70-year-old white female who was noted to have microcalcifications of concern in the right breast in the upper outer posterior aspect. She was recommended to undergo a stereotactic core biopsy. She was brought to the stereotactic core biopsy room after risk and benefits of the procedure were discussed with the patient. Alternatives such as watchful waiting or open biopsy were noted but not recommended. She agreed to the procedure. She was positioned on the low-rad table. A learning analyst film was obtained. A CC from above approach was utilized. The area of concern was identified and targeted. The breast was prepped using Betadine. 20 mL of 1% lidocaine were used to anesthetize the area of concern. A 9 mm petite needle was driven to the correct coordinates. A prefire film was obtained showing the needle to be in the correct location. The needle was fired and a posterior film was obtained showing the needle to be in the correct location. 12 core biopsies were obtained. Radiograph of the specimen revealed the area of concern had been adequately sampled. A bowtie clip was placed. The patient tolerated the procedure in stable condition. The specimen was sent for pathology. The patient will follow-up with Dr. Lindsay next week.
[2020-10-19 08:55] VITALS: BP 119/72; PULSE 80; TEMP 98.1
--- NOTE | 2020-10-19 09:55 | MM ---
EXAMINATION TYPE: MG stereo VAD BX RT DATE OF EXAM: 10/19/2020 COMPARISON: 09/12/2020 and 09/01/2020 CLINICAL HISTORY: 70-year-old female referred for CT guided core needle biopsy of right breast microcalcifications TECHNIQUE: Stereotactic guided core biopsy of the right breast. FINDINGS: The procedure of stereotactic guided core biopsy was explained to the patient. Benefits, alternatives, and risks were discussed. An informed consent was then obtained. The 11:00 posterior right breast microcalcifications are identified and targeted for biopsy. The shortness pathway for biopsy was chosen. Shortness pathway was a superior approach. I performed the localization, then surgeon, Dr. Neftali Menezes performed the remainder of the procedure. A vacuum assisted biopsy gun was used to obtain multiple core samples. The patient tolerated the procedure well without any immediate complication. The patient was kept in the radiology department for short stay after the procedure and then discharged home in stable condition. Targeted calcifications are identified in specimen mammogram. Post biopsy mammogram shows the clip to appear in satisfactory position relative to the targeted area of concern on the preprocedure images. There may be slight superior clip migration up to 1 cm. No residual microcalcifications remain. IMPRESSION: SUCCESSFUL, UNCOMPLICATED STEREOTACTIC GUIDED CORE BIOPSY OF AREA OF CONCERN IN THE 11:00 POSTERIOR RIGHT BREAST. VERY MINIMAL SUPERIOR CLIP MIGRATION UP TO 1 CM NOTED. OVERALL LOW CLINICAL SUSPICION. FULL PATHOLOGY RESULTS TO FOLLOW. Pathology Results: Benign RIGHT BREAST, CORE BIOPSY: Sclerotic fibroadenomatoid stromal hyperplasia with focal microcalcification and fibrocystic change with columnar cell change. Recommendation Follow up mammogram of the right breast in 6 months. CHERIE
== END ==
LOC: RADMAMWWP 06:56
PROVIDERS: ATTEND Surgery
DX: R92.8 Other abnormal and inconclusive findings on diagnostic imaging of breast (principal); N62 Hypertrophy of breast
CPT/HCPCS: 19081; 88305; A4648; J2001

== ENCOUNTER → 2020-10-26 | Outpatient (CLI) | payer MEDICARE ==
--- NOTE | 2020-10-26 10:54 | P.PN ---
Subjective Progress Note Date: 10/26/20 Principal diagnosis: Status post are detected core biopsy right breast Raven is a 70-year-old white female status post right breast stereotactic core biopsy on . Pathology revealed sclerotic fibroadenomatoid stromal hyperplasia with focal microcalcifications and fibrocystic change. The patient tolerated the procedure without difficulty. Objective - Constitutional General appearance: Present: cooperative - EENT Eyes: Present: EOMI - Neck Neck: Present: normal ROM - Respiratory Respiratory: bilateral: CTA - Cardiovascular Heart sounds: normal: S1, S2 - Integumentary Integumentary Comment(s): Right breast biopsy site clean and dry, no evidence of infection or hematoma Assessment and Plan Assessment: Impression: 1. Patient status post right breast stereotactic core biopsy/this is benign concordant Plan: 1. Repeat right breast mammogram in 6 months with physician exam at that time CC: Dr. Marita Givens
[2020-10-26 11:06] VITALS: BP 133/82; PULSE 89; RESP 18; TEMP 97.9
== END ==
LOC: WWCWWP 10:37
PROVIDERS: ATTEND Surgery
DX: D24.1 Benign neoplasm of right breast (principal); Z87.891 Personal history of nicotine dependence; Z88.0 Allergy status to penicillin; Z88.2 Allergy status to sulfonamides; Z88.8 Allergy status to other drugs, medicaments and biological substances

== ENCOUNTER → 2020-11-03 | Outpatient (CLI) | payer MEDICARE ==
--- NOTE | 2020-11-03 09:45 | CTL ---
EXAMINATION TYPE: CT Low Dose Lung DATE OF EXAM ORDERED: 11/03/2020 HISTORY: . Lung cancer screening CT DLP: 60.[address] CTDI: 1.7 mGy Automated exposure control for dose reduction was used. SCREENING VISIT: COMPARISON: 10/27/2019 TECHNIQUE: Low dose computed tomography scan was performed through the chest at 1 mm thick sections a nd reconstructed images in the coronal plane at [address] DIAGNOSTIC QUALITY: Satisfactory FINDINGS: There is emphysematous changes noted. No consolidative pneumonia or pleural no pneumothorax. Subsegme ntal changes are seen involving the anterior segment of the vertebral and involving bilateral lower l obes likely the basis of scar or atelectasis. No sizable pleural effusion or pneumothorax. Heart size is normal. Coronary artery calcification with atherosclerotic change aorta. Biapical pleur al thickening. No pleural calcifications. No sizable pulmonary nodule. Changes of basilar bronchiecta sis noted. Hypertrophic and degenerative changes spine. Left renal calculus again noted. IMPRESSION: 1. COPD with no sizable pulmonary nodules. 2. Coronary artery calcifications. CT LUNG RAD AND CT CHEST RECOMMENDATION: Lung-Rad 2 Benign Appearance or Behavior: Continue annual sc reening with LDCT in 12 months. S Modifier (other clinically significant findings): S
== END | disposition home or self-care (01) ==
LOC: RADCTMAIN 08:49
PROVIDERS: ATTEND Family Medicine
DX: J44.9 Chronic obstructive pulmonary disease, unspecified (principal); I25.10 Atherosclerotic heart disease of native coronary artery without angina pectoris
CPT/HCPCS: 71271

== ENCOUNTER → 2020-12-15 | Outpatient (CLI) | payer MEDICARE ==
--- NOTE | 2020-12-15 13:55 | BD ---
EXAMINATION TYPE: Axial Bone Density DATE OF EXAM: 12/15/2020 COMPARISON: NONE CLINICAL HISTORY: Height: 5 FT 6 1/2 IN Weight: 128 FRAX RISK QUESTIONS: Alcohol (3 or more units per day): NO Family History (Parent hip fracture): NO Glucocorticoids (More than 3mos): NO (Ex: prednisone, prednisolone, methylprednisolone, dexamethasone, and hydrocortisone). History of Fracture in Adulthood: YES Secondary Osteoporosis: 1. Type 1 Diabetes: NO 2. Hyperthyroidism: PADILLA 3. Menopause before 45: YES 4. Malnutrition: NO 5. Chronic liver disease: NO Rheumatoid Arthritis: NO Current Tobacco Use: NO RISK FACTORS HISTORY OF: Hip Fracture (Right/Left): LEFT When: 2020 Surgery to Spine/Hip(right/left)/Wrist (right/left): LEFT HIP FX When: 2020 Family History of Osteoporosis: YES Active: YES Diet low in dairy products/other sources of calcium: NO Postmenopausal woman: APPROX AGE 46 Take estrogen and/or progesterone medications: VERY SHORT TIME Lost more than 2 inches in height since high school: NO MEDICATIONS: Additional Medications: ATORVASTATIN, LISINOPRIL, ANXIETY MEDS,ALLERGY MEDS Additional History: EXAM MEASUREMENTS: Bone mineral densitometry was performed using the [employer]. Bone mineral density as measured about the Lumbar spine is: ----- L1-L4(G/cm2): 0.812 T Score Values are as follows: ----- L2: -2.7 ----- L3: -3.2 ----- L4: -4.1 ----- L1-L4: -3.1 Bone mineral density has: DECREASED -8.1 % since study of: 2019 Bone mineral density about the R hip (g/cm2): 0.705 T Score values are as follows: -----R Neck: -2.4 -----R Total: -2.6 Bone mineral density has: DECREASED -5.4 % since study of: 2019 IMPRESSION: Osteoporosis NOTE: T-SCORE=SD OF THE YOUNG ADULT MEAN.
== END | disposition home or self-care (01) ==
LOC: RADBDWWP 07:02
PROVIDERS: ATTEND Family Medicine
DX: M81.0 Age-related osteoporosis without current pathological fracture (principal)
CPT/HCPCS: 77080

== ENCOUNTER → 2021-04-17 | Outpatient (CLI) | payer MEDICARE ==
--- NOTE | 2021-04-17 09:56 | MM ---
Reason for exam: follow-up at short interval from prior study. Last mammogram was performed 7 months ago. History: Patient is postmenopausal and had first child at age 37. Benign MG stereo VAD BX RT of the right breast, October 19, 2020. MG discontinued stereo core LT of the left breast, August 08, 2014. Physical Findings: Nurse did not find any significant physical abnormalities on exam. MG 3D Diag Mammo W/Cad RT CC and MLO view(s) were taken of the right breast. Prior study comparison: September 12, 2020, right breast MG work up mamm w CAD RT. September 01, 2020, bilateral MG 3d screening mammo w/cad. The breast tissue is heterogeneously dense. This may lower the sensitivity of mammography. Previous mammotome biopsy in the right breast. Lateral asymmetric density does not persist on spot 3D. No significant new findings when compared with previous films. These results were verbally communicated with the patient and result sheet given to the patient on 04/17/21. ASSESSMENT: Benign, BI-RAD 2 RECOMMENDATION: Return to routine screening mammogram schedule for both breasts. Back on schedule for August 2021.
== END | disposition home or self-care (01) ==
LOC: RADMAMWWP 08:39
PROVIDERS: ATTEND Surgery
DX: R92.8 Other abnormal and inconclusive findings on diagnostic imaging of breast (principal); Z78.0 Asymptomatic menopausal state
CPT/HCPCS: 77065; G0279; 77061

== ENCOUNTER → 2021-04-20 | Outpatient (CLI) | payer MEDICARE ==
[2021-04-20 14:42] VITALS: BP 113/76; PULSE 80; RESP 16; TEMP 98
--- NOTE | 2021-04-20 15:16 | P.PN ---
Subjective Progress Note Date: 04/20/21 Principal diagnosis: fibrocystic breast changes Raven is a 71 year old white female seen in consultation for Desirae Cedeoñ physician campus administrative assistant with a mammographic abnormality in the right breast. The patient underwent a bilateral mammogram on after which additional views of the right breast were recommended. The additional views revealed a 0.4 x 0.2 cm group of heterogeneous calcifications in the upper outer quadrant region and stereotactic core biopsy was recommended. Patient did not complain of any lumps masses or nodules of concern in either breast. She was not complaining of any nipple discharge or skin changes. She had not had any prior surgery in the breast. She had not had any breast trauma or infections. She underwent a stero biopsy on 10-19-20 which was fibrocystic disease. She had a right breast mammogram on 04-17-21 draft Benign BIRAD 2 Nicotine: stopped 2013, prior 03/25 PPD 30 years; e cigarettes 1-2 cartridges caffeine: at least 2 big cups a day chocolate: daily Family history: mother: uterine cancer father: Esophageal cancer Hormonal History: menarche: 12 , breast fed: yes, age at : 37 menopause: 47 BCP: none hormones: no Surgical history: laporoscopy for fertility work up arthoscopic right knee hip fracture left Medical history: HTN high cholesterol anxiety Social history: Nicotine: Stopped in 2013 now uses E cigarettes Alcohol:none drugs: none - Constitutional Constitutional: Denies chills, Denies fever - EENT Eyes: denies blurred vision, denies pain Ears: deny: decreased hearing, tinnitus Ears, nose, mouth and throat: Denies headache, Denies sore throat - Breasts Breasts: bilateral: as per HPI - Cardiovascular Cardiovascular: Denies chest pain, Denies shortness of breath - Respiratory Respiratory: Reports as per HPI - Gastrointestinal Comment: Diverticulosis Gastrointestinal: Reports constipation, Denies abdominal pain, Denies diarrhea, Denies nausea, Denies vomiting - Genitourinary (Female) Genitourinary: Denies dysuria, Denies hematuria - Menstruation Menstruation: Reports postmenopausal - Musculoskeletal Comment: arthritis Musculoskeletal: Reports as per HPI - Integumentary Integumentary: Denies pruritus, Denies rash - Neurological Neurological: Denies numbness, Denies weakness - Psychiatric Psychiatric: Reports anxiety - Endocrine Endocrine: Denies fatigue, Denies weight change - Hematologic/Lymphatic Comment: aspirin daily - Allergic/Immunologic Allergic/Immunologic: Reports as per HPI, Reports seasonal allergies Objective - Vital Signs Vital signs: Vital Signs Temp 98.0 F 04/20/21 14:33 Pulse 80 04/20/21 14:33 Resp 16 04/20/21 14:33 BP 113/76 04/20/21 14:33 Pulse Ox Intake & Output 04/19/21 04/20/21 04/20/21 18:59 06:59 18:59 Weight 56.699 kg - Constitutional General appearance: Present: cooperative - EENT Eyes: Present: EOMI ENT: Present: hearing grossly normal - Neck Neck: Present: normal ROM - Respiratory Respiratory: bilateral: CTA - Cardiovascular Rhythm: regular Heart sounds: normal: S1, S2 - Gastrointestinal General gastrointestinal: Present: soft - Integumentary Integumentary: Present: normal turgor - Musculoskeletal Musculoskeletal Comment(s): uses a cane - Psychiatric Psychiatric: Present: A&O x's 3, appropriate affect, intact judgment & insight - Additional findings Additional findings: Breast Exam: BRA: 36C Inspection: grade 2 ptosis bilateral Palpation: right breast: multipositional exam no dominate laura or nodiles of concern right axilla: no adenopathy of concern left breast: multipositional exam no dominate laura or nodiles of concern left axilla: no adenopathy of concern Assessment and Plan Assessment: Impression: HTN high cholesterol anxiety bilateral fibrocystic breast disease Plan: 1. bilateral mammogram in 6 months with apointment at that time CC: Dr. Kirkland
== END ==
LOC: WWCWWP 14:20
PROVIDERS: ATTEND Surgery
DX: N60.11 Diffuse cystic mastopathy of right breast (principal); N60.12 Diffuse cystic mastopathy of left breast; I10 Essential (primary) hypertension; E78.00 Pure hypercholesterolemia, unspecified; F41.9 Anxiety disorder, unspecified; F17.290 Nicotine dependence, other tobacco product, uncomplicated; Z88.0 Allergy status to penicillin; Z88.2 Allergy status to sulfonamides; Z88.8 Allergy status to other drugs, medicaments and biological substances

== ENCOUNTER 2021-06-17 06:26 | Emergency (ER) | payer MEDICARE ==
[2021-06-17 06:31] VITALS: TEMP 98.2
--- NOTE | 2021-06-17 06:53 | ED ---
URI HPI - General Chief Complaint: Recheck/Abnormal Lab/Rx Stated Complaint: Covid Test Time Seen by Provider: 06/17/21 06:37 Source: patient, RN notes reviewed Mode of arrival: ambulatory Limitations: no limitations - History of Present Illness Initial Comments: This is a 71-year-old female who presents to the emergency department requesting a COVID test. She saw her primary care provider 3 days ago for an upper respiratory infection, she was given a steroid shot and started on a Z-Skinny. States that her symptoms have been improving, however yesterday, she began to develop nasal drainage and a sinus headache. She also continues to have nasal drainage. Her temperature was 99.5F, and her pulse ox was around 95%, which she states is lower than her normal at around 98-99%. Despite the lower pulse ox, she does not feel short of breath. She does however feel more fatigued than normal. She has a special needs daughter who she has to take to multiple appointments today, where she will be around other immunocompromised people. States that she wants to make sure that she is taking all precautions. She is vaccinated, however she has not had her booster. MD Complaint: cough, sinus pain Onset/Timin -: days(s) - Related Data Home Medications Medication Instructions Recorded Confirmed Aspirin EC [Ecotrin Low Dose] 81 mg PO Q48H 02/08/16 04/20/21 Cholecalciferol [Vitamin D3] 1,000 unit PO W/LUNCH 02/08/16 04/20/21 clonazePAM [KlonoPIN] 0.25 mg PO DAILY 02/08/16 04/20/21 lisinopriL [Zestril] 5 mg PO DAILY 10/05/20 04/20/21 Ascorbic Acid [Vitamin C] 500 mg PO DAILY 10/12/20 04/20/21 Biotin [Biotin Disolve] 5,000 mcg PO DAILY 10/12/20 04/20/21 Atorvastatin [Lipitor] 40 mg PO DAILY 04/20/21 04/20/21 Allergies Allergy/AdvReac Type Severity Reaction Status Date / Time alendronate sodium Allergy Chest Pain Verified 06/17/21 06:31 [From Fosamax] Penicillins Allergy Unknown Verified 06/17/21 06:31 Childhood Sulfa (Sulfonamide Allergy Unknown Verified 06/17/21 06:31 Antibiotics) triamterene Allergy excessive Verified 06/17/21 06:31 urination diphenhydramine AdvReac light-heade Verified 06/17/21 06:31 [From Benadryl] d dipyridamole [From Aggrenox] AdvReac Nausea & Verified 06/17/21 06:31 Vomiting, lt-headed Review of Systems ROS Statement: Those systems with pertinent positive or pertinent negative responses have been documented in the HPI. ROS Other: All systems not noted in ROS Statement are negative. Constitutional: Denies: fever, chills ENT: Reports: congestion. Denies: ear pain, throat pain Respiratory: Reports: cough. Denies: dyspnea Cardiovascular: Denies: chest pain, palpitations Endocrine: Reports: fatigue Gastrointestinal: Denies: abdominal pain, nausea, vomiting, diarrhea Genitourinary: Denies: urgency, dysuria Musculoskeletal: Denies: back pain Skin: Denies: rash Neurological: Reports: headache Past Medical History Past Medical History: Hyperlipidemia, Hypertension, Osteoarthritis (OA), Thyroid Disorder Additional Past Medical History / Comment(s): Hashimotos-no Rx, , diverticulosis, IBS, recent bloating, kidney stones, ovarian cysts since 2010 History of Any Multi-Drug Resistant Organisms: None Reported Past Surgical History: Orthopedic Surgery Additional Past Surgical History / Comment(s): rt knee arthrocopy, laparoscopy,left hip oksana placed,laposcopy 1982, right benign stereo-09/2020 Past Anesthesia/Blood Transfusion Reactions: No Reported Reaction Past Psychological History: Anxiety Smoking Status: Former smoker, Vaper Past Alcohol Use History: None Reported Past Drug Use History: None Reported - Past Family History Mother Family Medical History: Cancer, Diabetes Mellitus, Hyperlipidemia, Hypertension, Thyroid Disorder Additional Family Medical History / Comment(s): uterine Father Family Medical History: Cancer, Coronary Artery Disease (CAD), Hyperlipidemia, Hypertension Additional Family Medical History / Comment(s): Esophageal CA. General Exam Limitations: no limitations General appearance: alert, in no apparent distress Head exam: Present: atraumatic, normocephalic, normal inspection ENT exam: Present: normal exam, mucous membranes moist, normal external ear exam Neck exam: Present: normal inspection. Absent: tenderness, meningismus, lymphadenopathy Respiratory exam: Present: rales (Mild in the left upper and lower lobes of the lungs.). Absent: wheezes, rhonchi, stridor, chest wall tenderness, accessory muscle use, decreased breath sounds, prolonged expiratory Cardiovascular Exam: Present: regular rate, normal rhythm, normal heart sounds. Absent: systolic murmur, diastolic murmur, rubs, gallop, clicks Neurological exam: Present: alert, oriented X3, CN II-XII intact Psychiatric exam: Present: normal affect, normal mood Skin exam: Present: warm, dry, intact, normal color. Absent: rash Course Vital Signs 06/17/21 06/17/21 06:27 07:24 Temperature 98.2 F Pulse Rate 83 85 Respiratory 22 20 Rate Blood Pressure 150/90 120/84 O2 Sat by Pulse 97 98 Oximetry Medical Decision Making - Medical Decision Making This is a 71-year-old female who presents to the emergency department for a Covid test. COVID test negative. Given the low pulse ox, mild rales on auscultation, and persistent cough, will obtain a chest xray to rule out a pneumonia or any lingering issues. CXR revealed no acute abnormalities. Patient advised that workup did not reveal any acute or worsening problems. She is advised to finish her z-pack as prescribed and continue with symptomatic management. Return precautions reviewed in depth, the patient is instructed to return to the emergency department if symptoms worsen, including but not limited to, the development of fevers/chills, shortness of breath, or persistent coughing. Patient verbalized understanding. This case was discussed in detail with the attending ED physician. Presentation, findings, and treatment plan discussed in detail as well. - Lab Data Lab Results 06/17/21 Range/Units 06:33 Coronavirus (PCR) Not Detected (Not Detectd) - Radiology Data Radiology results: report reviewed, image reviewed Disposition Clinical Impression: Upper respiratory infection Disposition: HOME SELF-CARE Instructions (If sedation given, give patient instructions): Upper Respiratory Infection (ED) Additional Instructions: Return to the emergency department if you develop symptoms including but not limited to, fevers/chills, shortness of breath, chest pain, or an uncontrollable cough. Follow up with your primary care provider in 1-2 days. Is patient prescribed a controlled substance at d/c from ED?: No Referrals: Rolf Kirkland MD [Primary Care Provider] - 1-2 days
[2021-06-17 07:29] VITALS: BP 120/84; PULSE 85; RESP 20
--- NOTE | 2021-06-17 08:01 | XR ---
EXAMINATION TYPE: XR chest 2V DATE OF EXAM: 06/17/2021 COMPARISON: 01/06/2020 INDICATION: Cough low pulse ox TECHNIQUE: Single frontal view of the chest is obtained. FINDINGS: The heart size is normal. The pulmonary vasculature is normal. The lungs are clear. IMPRESSION: 1. No acute pulmonary process.
== END 2021-06-17 08:25 | disposition home or self-care (01) ==
LOC: EC 06:26
DX: J06.9 Acute upper respiratory infection, unspecified (principal); E78.5 Hyperlipidemia, unspecified; I10 Essential (primary) hypertension; M19.90 Unspecified osteoarthritis, unspecified site; E07.9 Disorder of thyroid, unspecified; F41.9 Anxiety disorder, unspecified; Z20.822 Contact with and (suspected) exposure to COVID-19; Z79.82 Long term (current) use of aspirin; Z88.0 Allergy status to penicillin; Z88.1 Allergy status to other antibiotic agents; Z88.2 Allergy status to sulfonamides; Z87.442 Personal history of urinary calculi; Z87.891 Personal history of nicotine dependence
CPT/HCPCS: 71046; 87635; 99284

== ENCOUNTER → 2021-09-11 | Outpatient (CLI) | payer MEDICARE ==
--- NOTE | 2021-09-12 07:48 | MM ---
Reason for Exam: Screening (asymptomatic). Last screening mammogram was performed 12 month(s) ago. Patient History: Menarche at age 12. First Full-Term at age 37. Late child-bearing (after 30). Postmenopausal. 10/19/2020, Benign Core Biopsy on the right side. 08/08/2014, MG discontinued stereo core LT on the left side. Risk Values: Sonam 5 year model risk: 2.9%. NCI Lifetime model risk: 7.4%. Prior Study Comparison: 09/01/2020 Bilateral Screening Mammogram, [facility]. 09/12/2020 Right Diagnostic Mammogram, [facility]. 04/17/2021 Right Diagnostic Mammogram, [facility]. Tissue Density: The breast tissue is heterogeneously dense. This may lower the sensitivity of mammography. Findings: Analyzed By CAD. There is no suspicious group of microcalcifications or new suspicious mass in either breast. Overall Assessment: Benign, BI-RAD 2 Management: Screening Mammogram of both breasts in 1 year. A clinical breast exam by your physician is recommended on an annual basis and results should be correlated with mammographic findings. Electronically signed and approved by: Morales Tabor M.D. Radiologis
== END | disposition home or self-care (01) ==
LOC: RADMAMWWP 08:26
PROVIDERS: ATTEND Surgery
DX: Z12.31 Encounter for screening mammogram for malignant neoplasm of breast (principal)
CPT/HCPCS: 77063; 77067

== ENCOUNTER → 2021-09-21 | Outpatient (CLI) | payer MEDICARE ==
[2021-09-21 11:03] VITALS: BP 108/74; PULSE 91; RESP 17; TEMP 97.1
--- NOTE | 2021-09-21 11:16 | P.PN ---
Subjective Progress Note Date: 09/21/21 Principal diagnosis: Fibrocystic breast changes/ nevis left breast fibrocystic breast changes Raven is a 71 year old white female seen in consultation for Desirae Cedeño physician respiratory care assistant with a mammographic abnormality in the right breast. The patient underwent a bilateral mammogram on after which additional views of the right breast were recommended. The additional views revealed a 0.4 x 0.2 cm group of heterogeneous calcifications in the upper outer quadrant region and stereotactic core biopsy was recommended. Patient did not complain of any lumps masses or nodules of concern in either breast. She was not complaining of any nipple discharge or skin changes. She had not had any prior surgery in the breast. She had not had any breast trauma or infections. She underwent a stero biopsy on 10-19-20 which was fibrocystic disease. She had a right breast mammogram on 04-17-21 draft Benign BIRAD 2 09-21-21 The patient had a bilateral mammogram on 09-11-21 which was BIRAD 2. She is not complaining of any lumps, masses, or nodules of concern. Patient does have a nevus on the left breast in the upper outer quadrant area which is approximately 2 x 1.5 cm in size. It is starting to get darker in the external portion and crusting. Nicotine: stopped 2013, prior 1/2 PPD 30 years; e cigarettes 1-2 cartridges caffeine: at least 2 big cups a day chocolate: daily Family history: mother: uterine cancer father: Esophageal cancer Hormonal History: menarche: 12 , breast fed: yes, age at : 37 menopause: 47 BCP: none hormones: no Surgical history: laporoscopy for fertility work up arthoscopic right knee hip fracture left Medical history: HTN high cholesterol anxiety Social history: Nicotine: Stopped in 2013 now uses E cigarettes Alcohol:none drugs: none - Constitutional Constitutional: Denies chills, Denies fever - EENT Eyes: denies blurred vision, denies pain Ears: deny: decreased hearing, tinnitus Ears, nose, mouth and throat: Denies headache, Denies sore throat - Breasts Breasts: bilateral: as per HPI - Cardiovascular Cardiovascular: Denies chest pain, Denies shortness of breath - Respiratory Respiratory: Reports as per HPI - Gastrointestinal Comment: Diverticulosis Gastrointestinal: Reports constipation, Denies abdominal pain, Denies diarrhea, Denies nausea, Denies vomiting - Genitourinary (Female) Genitourinary: Denies dysuria, Denies hematuria - Menstruation Menstruation: Reports postmenopausal - Musculoskeletal Comment: arthritis Musculoskeletal: Reports as per HPI - Integumentary Integumentary: Denies pruritus, Denies rash - Neurological Neurological: Denies numbness, Denies weakness - Psychiatric Psychiatric: Reports anxiety - Endocrine Endocrine: Denies fatigue, Denies weight change - Hematologic/Lymphatic Comment: aspirin daily Objective - Vital Signs Vital signs: Vital Signs Temp 97.1 F L 09/21/21 11:01 Pulse 91 09/21/21 11:01 Resp 17 09/21/21 11:01 BP 108/74 09/21/21 11:01 Pulse Ox 97 09/21/21 11:01 FiO2 Intake & Output 09/20/21 09/21/21 09/21/21 18:59 06:59 18:59 Weight 55.338 kg - Exam BMI: 19.1 - Constitutional General appearance: Present: cooperative - EENT Eyes: Present: EOMI ENT: Present: hearing grossly normal - Neck Neck: Present: normal ROM - Respiratory Respiratory: bilateral: CTA - Cardiovascular Heart sounds: normal: S1, S2 - Integumentary Integumentary Comment(s): nevis left breast UOQ - Musculoskeletal Musculoskeletal: Present: gait normal - Psychiatric Psychiatric: Present: A&O x's 3, appropriate affect, intact judgment & insight - Additional findings Additional findings: Breast examination: BRA: 34B/C Inspection: Grade 2 ptosis, nevus left breast upper outer quadrant approximately 2 x 1.5 cm in size with a dark portion on the upper outer portion of the nevus Palpation: Right breast: Multi-positional exam fibrocystic changes no dominant masses or nodules of concern Right axilla: No adenopathy of concern Left breast: Multi-positional exam fibrocystic changes no dominant masses or nodules of concern, nevus as stated Left axilla: No adenopathy of concern Assessment and Plan Assessment: Impression: Fibrocystic breast changes Nevus left breast Plan: Excision of nevus left breast in the office Bilateral mammogram in 1 year with physician exam at that time CC: Dr. Marita Givens
== END ==
LOC: WWCWWP 10:27
PROVIDERS: ATTEND Surgery
DX: N60.11 Diffuse cystic mastopathy of right breast (principal); N60.12 Diffuse cystic mastopathy of left breast; D22.5 Melanocytic nevi of trunk; I10 Essential (primary) hypertension; E78.00 Pure hypercholesterolemia, unspecified; F41.9 Anxiety disorder, unspecified; Z88.0 Allergy status to penicillin; Z88.2 Allergy status to sulfonamides; Z88.8 Allergy status to other drugs, medicaments and biological substances; Z87.891 Personal history of nicotine dependence

== ENCOUNTER → 2021-10-04 | Outpatient (CLI) | payer MEDICARE ==
[2021-10-04 07:14] LABS: African American GFR (CKD) >90 (>60 ml/min/1.73 sqM); Blood Urea Nitrogen 13 mg/dL (7-17); Non-African American GFR(CKD) 89 (>60 ml/min/1.73 sqM)
--- NOTE | 2021-10-04 09:16 | CT ---
EXAMINATION TYPE: CT abdomen pelvis wo/w con CT DLP: 734.4 mGycm, Automated exposure control for dose reduction was used. DATE OF EXAM: 10/04/2021 8:56 AM COMPARISON: CT pelvis 01/03/2020 CT abdomen pelvis 05/08/2017. CLINICAL INDICATION:Female, 71 years old with history of R10.30 Lower abd pain; lower abd pain and cr amping TECHNIQUE: Standard CT of the abdomen and pelvis before and after the administration of 70 cc of Is ovue 300 IV contrast material and oral contrast. Coronal and sagittal reformats were performed. FINDINGS: LOWER CHEST: Stable right middle lobe 5 mm noncalcified pulmonary nodule being back to at least 2018 and considered benign (series 3, image 4). Bibasilar scarring. ABDOMEN LIVER: Unremarkable GALLBLADDER AND BILE DUCTS: Unremarkable. PANCREAS: Unremarkable. SPLEEN: Unremarkable. ADRENAL GLANDS: Right adrenal is unremarkable. Thickening of the left adrenal gland. KIDNEYS AND URETERS: No hydronephrosis. Nonobstructive bilateral renal calculi. Right renal cyst. PELVIS BLADDER: Incompletely distended but grossly unremarkable. REPRODUCTIVE: Unremarkable. ABDOMEN & PELVIS STOMACH AND BOWEL: Stomach and duodenum are unremarkable. No focal wall thickening or surrounding inf lammatory changes. The appendix is within normal limits. No evidence of bowel obstruction. Enteric co ntrast reaches the transverse colon. PERITONEUM: No evidence of pneumoperitoneum. Trace free fluid in the pelvis, likely physiologic. VASCULATURE: Mild atherosclerotic calcifications are present throughout the abdominal aorta and its b ranches. No evidence of aortic aneurysm. MUSCULOSKELETAL: No acute osseous abnormalities. Post surgical changes from left proximal femur intra medullary oksana and screw fixation. Severe osteophytic changes of both hips. Stable mild compression de formity of the L1 vertebral body superior endplate without evidence of retropulsion. Degenerative irene nges of the lumbar spine most pronounced at L5-S1. LYMPH NODES: No gross evidence for lymphadenopathy. SOFT TISSUE/ABDOMINAL WALL: Unremarkable IMPRESSION: 1. No acute abdominal/pelvic process. 2. Nonobstructive bilateral renal calculi.
== END | disposition home or self-care (01) ==
LOC: RADCTMAIN 06:32
PROVIDERS: ATTEND Internal Medicine Gastroenterology
DX: N20.0 Calculus of kidney (principal)
CPT/HCPCS: 82565; 84520; 74178; 36415; Q9967

== ENCOUNTER → 2021-12-05 | Outpatient (CLI) | payer MEDICARE ==
--- NOTE | 2021-12-05 12:36 | CTL ---
EXAMINATION TYPE: CT Low Dose Lung DATE OF EXAM ORDERED: 12/05/2021 HISTORY: Nicotine dependence. Lung cancer screening CT DLP: 41.[address] CTDI: 1.20 mGy Automated exposure control for dose reduction was used. SCREENING VISIT: Subsequent COMPARISON: 11/03/2020 TECHNIQUE: Low dose computed tomography scan was performed through the chest at 1 mm thick sections a nd reconstructed images in the coronal plane at [address] DIAGNOSTIC QUALITY: Satisfactory FINDINGS: LUNG NODULES: None. Appears to be some stable scarring in the posterior dependent lung bases bilaterally. LUNGS: COPD: Severity: Mild Fibrosis: Severity: None Lymph nodes: None Other findings: None RIGHT PLEURAL SPACE: Effusion: None Calcification: None Thickening: None Pneumothorax: None LEFT PLEURAL SPACE: Effusion: None Calcification: None Thickening: None Pneumothorax: None HEART: Heart Size: Normal Coronary calcification: Minimal Pericardial effusion: None OTHER FINDINGS: Upper abdomen: Normal Bony thorax: Normal Supraclavicular region: Normal Other: Ascending thoracic aorta at the level the main pulmonary artery measures 3.0 cm. The main pul monary artery at the bifurcation measures 2.1 cm. IMPRESSION: 1. Benign-appearing findings FOLLOW UP CT CHEST RECOMMENDATION: Follow-up low-dose CT chest [address] LUNG RAD: Lung-Rad 2 Benign Appearance or Behavior
== END | disposition home or self-care (01) ==
LOC: RADCTMAIN 11:27
PROVIDERS: ATTEND Family Medicine
DX: Z12.2 Encounter for screening for malignant neoplasm of respiratory organs (principal); Z87.891 Personal history of nicotine dependence
CPT/HCPCS: 71271

== ENCOUNTER → 2022-01-14 | Outpatient (CLI) | payer MEDICARE ==
--- NOTE | 2022-01-14 09:43 | BD ---
EXAMINATION TYPE: Axial Bone Density DATE OF EXAM: 01/14/2022 COMPARISON: 12-15-20 CLINICAL HISTORY: 71 years year old Female. ICD-10 CODE: M81.0 Known osteoporosis Height: 67IN Weight: 130LB FRAX RISK QUESTIONS: History of Fracture in Adulthood: YES Secondary Osteoporosis: 3. Menopause before 45: YES RISK FACTORS HISTORY OF: Hip Fracture Left): YES When: 2019 Surgery to Hip(left): YES When: 2020 Family History of Osteoporosis: YES Active: YES Postmenopausal woman: YES Take estrogen and/or progesterone medications: YES How long: SHORT PERIOD OF TIME MEDICATIONS: Additional Medications: BP MEDS, CHOLESTEROL MEDS, ANXIETY MEDS, VITAMIN D Additional History: EXAM MEASUREMENTS: Bone mineral densitometry was performed using the [employer] System. Bone mineral density as measured about the Lumbar spine is: ----- L1-L4(G/cm2): 0.842 T Score Values are as follows: ----- L1: -2.4 ----- L2: -2.5 ----- L3: -2.8 ----- L4: -3.6 ----- L1-L4: -2.8 Bone mineral density has: Increased 6.7% since study of: 12-15-20 Bone mineral density about the R hip (g/cm2): 0.663 T Score values are as follows: -----R Neck: -2.3 -----R Total: -2.7 Bone mineral density has: Decreased -2.1% since study of: 12-15-20 FRAX%s: The graph provided illustrates a 20% chance for a major osteoporotic fx and a 5.4% chance for the hips probability for fx in 10 years time. IMPRESSION: Osteoporosis (T Score less than -2.5). There is increased fracture risk and therapy is usually indicated based on age. Re-Screen 1-2 years. NOTE: T-SCORE=SD OF THE YOUNG ADULT MEAN.
== END | disposition home or self-care (01) ==
LOC: RADBDWWP 07:25
PROVIDERS: ATTEND Family Medicine
DX: M81.0 Age-related osteoporosis without current pathological fracture (principal)
CPT/HCPCS: 77080

== ENCOUNTER → 2022-01-15 | Outpatient (CLI) | payer MEDICARE ==
[~2022-01-15] MED LIST: REGADENOSON 0.4 MG/5 ML SYRINGE IV PRN
--- NOTE | 2022-01-15 12:11 | NM ---
EXAMINATION TYPE: NM stress lexiscan cardiolite DATE OF EXAM: 01/15/2022 COMPARISON: NONE HISTORY: Hypertension. TECHNIQUE: After the intravenous administration of 10.1 mCi Tc 99m Sestamibi - Cardiolite resting SP ECT images acquired 45 minutes post injection. The patient received 0.4mg Lexiscan, 24.8 mCi Tc 99m Sestamibi - Stress images obtained [address] injection FINDINGS: Review of stress and rest SPECT images demonstrates no distinct perfusion abnormality. Gated analysi s shows normal wall motion with an estimated left ventricular ejection fraction of 73 %. IMPRESSION: No scintigraphic evidence for reversible ischemia.
--- NOTE | 2022-01-15 16:32 | CA ---
Lexiscan Nuclear Stress Test Report Name: Raven Valente Exam Date: 01/15/2022 10:01 Exam Location: [place] Stress Ht (in): 67 Wt (lb): 126 BSA: 1.66 Ordering Phys: Jessica Kirkland DO Referring Phys: Desirae Cedeño PAC Technologist: Sonido Davis Age: 71 Gender: F : 1950 Procedure CPT: Indications: I10 HTN ICD-10 Codes: Patient History: CHEST PAIN, HTN, ELEVATED CHOLESTEROL LEVELS, FAMILY HX OF HEART DISEASE, FORMER SMOKER Medications: LISINOPRIL,,,,,, ATORVASTATIN,,,,,, CLONAZEPAM,,,,,, VITAMIN D,,,,,, VIT C,,,,, Meds past 24 hrs: Pretest Chest Pain: STRESS TEST Lexiscan Protocol Exercise Duration (min:sec): 01:[address] Depressions (mm): Angina Score: Gomez Score: Resting HR (bpm): 68 Peak HR (bpm): 94 Resting BP (mmHg): 117 / 73 Peak BP (mmHg): 126 / 75 MPHR: 148 Target HR: 126 % MPHR: 64 METS: 1.0 Total Dose: Peak Dose: Atropine: Double Product: 31459 BP Response: Stress Termination: Completion of Infusion Stress Symptoms: NO SYMPTOMS Stress Summary: ECG ANALYSIS Resting ECG: Stress ECG: CONCLUSIONS Lexiscan Cardiolite stress test Baseline heart rate 66 beats a minute, blood pressure 117/73 mmHg Baseline twelve-lead EKG showed sinus mechanism with a normal ST segments Patient received Lexiscan infusion per protocol No symptoms No significant changes in heart rate and blood pressure line new. Portion of be reported separately No ECG is for ischemia No arrhythmias Dr. Tao Romero MD (Electronically Signed) Final Date: 15 January 2022 16:31
== END | disposition home or self-care (01) ==
LOC: RADNMMAIN 07:27
PROVIDERS: ATTEND Family Medicine
DX: I20.8 Other forms of angina pectoris (principal); I10 Essential (primary) hypertension
CPT/HCPCS: 93017; 78452; A9500; J2785

== ENCOUNTER → 2022-03-20 | Outpatient (CLI) | payer MEDICARE ==
--- NOTE | 2022-03-20 08:39 | MR ---
EXAMINATION TYPE: MR lumbar spine wo con DATE OF EXAM: 03/20/2022 COMPARISON: CT abdomen pelvis 10/04/2021. HISTORY: Lower back pain that travels down Right Thigh TECHNIQUE: Multiplanar, multisequence images of the lumbar spine were acquired without IV contrast. FINDINGS: Lumbar segments are intact. No paraspinal masses are identified. Conus medullaris has a normal appe arance. 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 This desiccation at L5-S1. L1-L2: No herniation, protrusion or disc bulging. No canal stenosis is present. Foramina are patent bilaterally. L2-L3: No herniation, protrusion or disc bulging. No canal stenosis is present. Foramina are patent bilaterally. L3-L4: No herniation, protrusion or disc bulging. No canal stenosis is present. Foramina are patent bilaterally. L4-L5: No herniation, protrusion or disc bulging. No canal stenosis is present. Foramina are patent bilaterally. L5-S1: Minimal disc bulge without central canal stenosis. Foramina are patent bilaterally. Other: Subcentimeter T2 hyperintense focus within the right kidney likely representing a cyst. IMPRESSION: 1. No disc herniation or central canal stenosis. 2. Mild degenerative disc disease at L5-S1.
== END | disposition home or self-care (01) ==
LOC: RADMRIMAIN 07:07
PROVIDERS: ATTEND Orthopaedic Surgery
DX: M51.17 Intervertebral disc disorders with radiculopathy, lumbosacral region (principal); M47.26 Other spondylosis with radiculopathy, lumbar region
CPT/HCPCS: 72148

== ENCOUNTER → 2022-09-13 | Outpatient (CLI) | payer MEDICARE ==
--- NOTE | 2022-09-16 06:16 | MM ---
Reason for Exam: Screening (asymptomatic). Last screening mammogram was performed 12 month(s) ago. Patient History: Menarche at age 12. First Full-Term at age 37. Late child-bearing (after 30). Postmenopausal. 10/19/2020, Benign Core Biopsy on the right side. 08/08/2014, MG discontinued stereo core LT on the left side. Risk Values: Sonam 5 year model risk: 2.9%. NCI Lifetime model risk: 7.0%. Prior Study Comparison: 09/12/2020 Right Diagnostic Mammogram, [facility]. 04/17/2021 Right Diagnostic Mammogram, [facility]. 09/11/2021 Bilateral MG 3D screening mammo w/cad, [facility]. Tissue Density: The breast tissue is heterogeneously dense. This may lower the sensitivity of mammography. Findings: Analyzed By CAD. There is no suspicious group of microcalcifications or new suspicious mass in either breast. Benign calcifications within both breasts. Previous mammotome biopsy of the right breast. Overall Assessment: Benign, BI-RAD 2 Management: Screening Mammogram of both breasts in 1 year. A clinical breast exam by your physician is recommended on an annual basis and results should be correlated with mammographic findings. Note on Sonam scores and lifetime risk: 1. A Sonam score greater than 3% is considered moderate risk. If this is the case, consider specialist referral to assess eligibility for a risk reducing agent. If overall lifetime risk for the development of breast cancer is 20% or higher, the patient may qualify for future screening with alternating mammogram and breast MRI. Electronically signed and approved by: Fredrick Dominguez D.O.
== END | disposition home or self-care (01) ==
LOC: RADMAMWWP 09:28
PROVIDERS: ATTEND Surgery
DX: Z12.31 Encounter for screening mammogram for malignant neoplasm of breast (principal); Z78.0 Asymptomatic menopausal state
CPT/HCPCS: 77063; 77067

== ENCOUNTER → 2022-09-19 | Outpatient (CLI) | payer MEDICARE ==
[2022-09-19 09:45] VITALS: BP 134/80; PULSE 75; RESP 16; TEMP 98
--- NOTE | 2022-09-19 10:04 | P.PN ---
Subjective Progress Note Date: 09/19/22 Principal diagnosis: fibrocystic breast changes ibrocystic breast changes Raven is a 71 year old white female seen in consultation for Desirae Cedeño physician operational assistant with a mammographic abnormality in the right breast. The patient underwent a bilateral mammogram on after which additional views of the right breast were recommended. The additional views revealed a 0.4 x 0.2 cm group of heterogeneous calcifications in the upper outer quadrant region and stereotactic core biopsy was recommended. Patient did not complain of any lumps masses or nodules of concern in either breast. She was not complaining of any nipple discharge or skin changes. She had not had any prior surgery in the breast. She had not had any breast trauma or infections. She underwent a stero biopsy on 10-19-20 which was fibrocystic disease. She had a right breast mammogram on 04-17-21 draft Benign BIRAD 2 09-21-21 The patient had a bilateral mammogram on 09-11-21 which was BIRAD 2. She is not complaining of any lumps, masses, or nodules of concern. Patient does have a nevus on the left breast in the upper outer quadrant area which is approximately 2 x 1.5 cm in size. It is starting to get darker in the external portion and crusting. 09-19-22 She is not complaining of any new lumps masses or nodules of concern in either breast. The nevus do not excised that she is following with dermatology and this is been treated with liquid nitrogen. She had a bilateral mammogram on 09-13-22 which was BIRAD 2. Discussed chemoprophylaxis and at this time she is going to wait Sonam 5 year risk: 2.9% NCI lifetime risk: 7% Nicotine: stopped 2013, prior 1/2 PPD 30 years; e cigarettes 1-2 cartridges caffeine: at least 2 big cups a day chocolate: daily Family history: mother: uterine cancer father: Esophageal cancer Hormonal History: menarche: 12 , breast fed: yes, age at : 37 menopause: 47 BCP: none hormones: no Surgical history: laporoscopy for fertility work up arthoscopic right knee hip fracture left Medical history: HTN high cholesterol anxiety Social history: Nicotine: Stopped in 2013 now uses E cigarettes Alcohol:none drugs: none - Constitutional Constitutional: Denies chills, Denies fever - EENT Eyes: denies blurred vision, denies pain Ears: deny: decreased hearing, tinnitus Ears, nose, mouth and throat: Denies headache, Denies sore throat - Breasts Breasts: bilateral: as per HPI - Cardiovascular Cardiovascular: Denies chest pain, Denies shortness of breath - Respiratory Respiratory: Reports as per HPI - Gastrointestinal Comment: Diverticulosis Gastrointestinal: Reports constipation, Denies abdominal pain, Denies diarrhea, Denies nausea, Denies vomiting - Genitourinary (Female) Genitourinary: Denies dysuria, Denies hematuria - Menstruation Menstruation: Reports postmenopausal - Musculoskeletal Comment: arthritis Musculoskeletal: Reports as per HPI - Integumentary Integumentary: Denies pruritus, Denies rash - Neurological Neurological: Denies numbness, Denies weakness - Psychiatric Psychiatric: Reports anxiety - Endocrine Endocrine: Denies fatigue, Denies weight change - Hematologic/Lymphatic Comment: aspirin daily Objective - Vital Signs Vital signs: Vital Signs Temp 98 F 09/19/22 09:42 Pulse 75 09/19/22 09:42 Resp 16 09/19/22 09:42 BP 134/80 09/19/22 09:42 Pulse Ox 97 09/19/22 09:42 FiO2 Intake & Output 09/18/22 09/19/22 09/19/22 18:59 06:59 18:59 Weight 59.421 kg - Constitutional General appearance: Present: cooperative - EENT Eyes: Present: EOMI ENT: Present: hearing grossly normal - Neck Neck: Present: normal ROM - Respiratory Respiratory: bilateral: CTA - Cardiovascular Rhythm: regular Heart sounds: normal: S1, S2 - Gastrointestinal General gastrointestinal: Present: soft - Integumentary Integumentary: Present: normal turgor - Musculoskeletal Musculoskeletal: Present: gait normal - Psychiatric Psychiatric: Present: A&O x's 3, appropriate affect, intact judgment & insight - Additional findings Additional findings: Breast examination: BRA: 34B/C Inspection: Grade 2 ptosis, bilateral Palpation: Right breast: Multi-positional exam fibrocystic changes no dominant masses or nodules of concern Right axilla: No adenopathy of concern Left breast: Multi-positional exam fibrocystic changes no dominant masses or nodules of concern, nevus approximately 12 o'clock position left breast and left axilla which are being followed by dermatology and had been treated with liquid nitrogen Left axilla: No adenopathy of concern Assessment and Plan Assessment: Impression: Fibrocystic breast changes bilatearl mammogram on 09-13-22 BIRAD 2 Plan: Bilateral mammogram in 1 year with physician exam at that time CC: Dr. Marita Givens Additional CC's: Jessica Cedeño
== END ==
LOC: WWCWWP 09:11
PROVIDERS: ATTEND Surgery
DX: N60.11 Diffuse cystic mastopathy of right breast (principal); I10 Essential (primary) hypertension; E78.00 Pure hypercholesterolemia, unspecified; F41.9 Anxiety disorder, unspecified; Z88.0 Allergy status to penicillin; Z88.2 Allergy status to sulfonamides; Z88.5 Allergy status to narcotic agent; Z88.8 Allergy status to other drugs, medicaments and biological substances; Z91.048 Other nonmedicinal substance allergy status; Z79.899 Other long term (current) drug therapy; Z87.891 Personal history of nicotine dependence

== ENCOUNTER → 2023-01-10 | Outpatient (CLI) | payer MEDICARE ==
--- NOTE | 2023-01-17 14:29 | CTL ---
EXAMINATION TYPE: CT Low Dose Lung DATE OF EXAM: 01/10/2023 12:15 PM CLINICAL INDICATION:Female, 72 years old with history of Z87.891 PERSONAL HISTORY OF NICOTINE DEPENDE NCE; nicotine dependence 1 1/2 pack a day for 30 years , history of tobacco use. COMPARISON: 12/05/2021. TECHNIQUE: Multiple axial non-contrast scans were obtained from approximately the lung apices through the upper abdomen. Coronal and sagittal reformatted images were obtained. Low dose technique was uti lized. CT DLP: 56.1 mGycm, Automated exposure control for dose reduction was used. CT Contrast: Contrast used: None Oral contrast used: None FINDINGS: ======== Lack of intravenous contrast and low dose technique limits the evaluation of the vascular and soft ti ssue structures. LUNGS: No evidence of pulmonary fibrosis. No evidence of focal consolidation, pneumothorax or pleural effusion. Mild centrilobular emphysema changes present throughout the lungs. No new or enlarging pul monary nodules visualized. Streaky atelectasis and/or scarring at the bases. Nodules: RUL: None. RML: Stable right middle lobe pulmonary nodule measuring 4 mm series 3 image 206. RLL: None. WILLIAM: None. LLL: None. AIRWAY: Patent and unremarkable. HEART: Size within normal limits. Mild coronary artery calcifications. MEDIASTINUM: No gross evidence of adenopathy. VASCULATURE: No aortic aneurysm. Atherosclerosis of the arterial vasculature. MUSCULOSKELETAL: Mild disc degeneration changes are present throughout the thoracolumbar spine. SOFT TISSUES/LYMPH NODES: Unremarkable. LOWER NECK: No significant findings. UPPER ABDOMEN: No significant findings. IMPRESSION: 1. Stable right middle lobe pulmonary nodule. No new or enlarging pulmonary nodules.. 2. Mild COPD changes. CT LUNG RAD AND CT CHEST RECOMMENDATION: Lung-Rad 2 Benign Appearance or Behavior: Continue annual sc reening with LDCT in 12 months. S Modifier (other clinically significant findings): None Recommend smoking cessation (if current smoker), or continuation of smoking cessation (if prior smoke r). Annual screening for lung cancer with low-dose computed tomography is recommended in adults ages 55 to 77 years who have a 30 pack-year smoking history and currently smoke or have quit within the pa st 15 years. Screening should be discontinued once a person has not smoked for 15 years or develops a health problem that substantially limits life expectancy or the ability or willingness to have curat fabien lung surgery. Lung rads 2021 [email or web address]
== END | disposition home or self-care (01) ==
LOC: RADCTMAIN 11:50
PROVIDERS: ATTEND Family Medicine
DX: Z12.2 Encounter for screening for malignant neoplasm of respiratory organs (principal); J44.9 Chronic obstructive pulmonary disease, unspecified; R91.1 Solitary pulmonary nodule; Z87.891 Personal history of nicotine dependence
CPT/HCPCS: 71271

== ENCOUNTER 2023-08-26 10:54 | Day surgery (SDC) | payer MEDICARE ==
--- NOTE | 2023-08-25 08:33 | P.HPOR ---
History of Present Illness H&P Date: 08/25/23 Chief Complaint: Right hip pain The patient is a 73-year-old retired female who presents with progressive right hip pain for the past 6 months. She notes groin and thigh pain worse with weightbearing activities. She's tried therapy with partial relief. She does use a cane. She is having night symptoms. She tried previous medications without much relief. Review of Systems As per HPI Past Medical History Past Medical History: Hyperlipidemia, Hypertension, Osteoarthritis (OA), Thyroid Disorder Additional Past Medical History / Comment(s): Hashimotos-no Rx, , diverticulosis, IBS, recent bloating, kidney stones, ovarian cysts since 2010 monitored yearly, internal hemorrhoids being monitored. History of Any Multi-Drug Resistant Organisms: None Reported Past Surgical History: Orthopedic Surgery Additional Past Surgical History / Comment(s): rt knee arthrocopy, laparoscopy,left hip oksana placed,laposcopy 1982, right benign bx with marker- 09/2020. colonoscopy Past Anesthesia/Blood Transfusion Reactions: No Reported Reaction Smoking Status: Former smoker, Vaper - Past Family History Mother Family Medical History: Cancer, Diabetes Mellitus, Hyperlipidemia, Hypertension, Thyroid Disorder Additional Family Medical History / Comment(s): uterine Father Family Medical History: Cancer, Coronary Artery Disease (CAD), Hyperlipidemia, Hypertension Additional Family Medical History / Comment(s): Esophageal CA. Medications and Allergies Home Medications Medication Instructions Recorded Confirmed Type Cholecalciferol [Vitamin D3] 2,000 unit PO W/LUNCH 02/08/16 08/22/23 History clonazePAM [KlonoPIN] 0.25 mg PO DAILY 02/08/16 08/22/23 History lisinopriL [Zestril] 5 mg PO DAILY 10/05/20 08/22/23 History Ascorbic Acid [Vitamin C] 500 mg PO DAILY 10/12/20 08/22/23 History Biotin [Biotin Disolve] 5,000 mcg PO DAILY 10/12/20 08/22/23 History Atorvastatin [Lipitor] 10 mg PO DAILY 04/20/21 08/22/23 History Acetaminophen [Tylenol Extra 1,000 mg PO DIRECTED PRN 08/22/23 08/22/23 History Strength] Naproxen Sodium [Aleve] 220 mg PO BID PRN 08/22/23 08/22/23 History Allergies Allergy/AdvReac Type Severity Reaction Status Date / Time alendronate sodium Allergy Chest Pain Verified 08/22/23 10:58 [From Fosamax] Penicillins Allergy Unknown Verified 08/22/23 10:58 Childhood Sulfa (Sulfonamide Allergy Unknown Verified 08/22/23 10:58 Antibiotics) triamterene Allergy excessive Verified 08/22/23 10:58 urination diphenhydramine AdvReac light-heade Verified 08/22/23 10:58 [From Benadryl] d dipyridamole [From Aggrenox] AdvReac Nausea & Verified 08/22/23 10:58 Vomiting, lt-headed Physical Examination - Hip right Gait: antalgic Tenderness with palpation: anterior Pain with motion: internal rotation and hip flexion ROM: flexion: 80 degrees ROM: internal rotation: 0 degrees (With pain) ROM: external rotation: 60 degrees Crepitus with motion: Yes Strength: extension: 5/5 Strength: flexion: 5/5 Strength: abduction: 5/5 Tests: impingement tests: positive Results The patient is a well-developed well-nourished female approximately 5 foot 7, 132 pounds of mesomorphic habitus. HEENT exam is nonfocal, neck is supple. She has painful limited range of motion of the right hip. Clinically she does have shortening of the right lower extremity compared to the left. Her distal neurovascular appears intact right lower extremity. - Diagnostic results Hip x-ray: image reviewed (X-rays of the right hip obtained in the office show severe osteoarthrosis with [id number] changes along the large cystic. The femoral head.) Assessment and Plan Assessment: Right hip severe osteoarthrosis Plan: I talked with patient at length regarding her condition along with treatment options. At this point she is quite syndromatic having pain related to her right hip osteoarthrosis despite conservative measures. After a thorough discussion she opts to proceed with surgery. We will plan to proceed with right total hip arthroplasty utilizing an anterior approach. Risks and benefits were discussed at length in layman's terms. We will institute DVT prophylaxis postoperatively.
[~2023-08-26 10:54] MED LIST changes: +HYDROmorphone 0.5 MG/0.5 ML SYRINGE IVP PRN; +LIDOCAINE 1% (10MG/ML) FOR IV START INTRADERMA PRN; -REGADENOSON 0.4 MG/5 ML SYRINGE IV PRN; +TRANEXAMIC 1,000 MG/100ML-NACL 1,000 MG in SALINE 1 100ML.BAG IVPB PRN
[2023-08-26] MEDS: ACETAMINOPHEN TAB 500 MG TAB PO PRN (12:16)
[2023-08-26] MEDS: MELOXICAM 7.5 MG TAB PO PRN (12:16)
[2023-08-26] MEDS: ONDANSETRON 4 MG/2 ML VIAL IVP ONE (12:17)
[2023-08-26] MEDS: DEXAMETHASONE SOD PHOSPHATE 4 MG/ML 1 ML VIAL IVP STA (12:18)
[2023-08-26] MEDS: MIDAZOLAM 2 MG/2 ML VIAL IVP ONE (12:23)
[2023-08-26] MEDS: IV FLUID CONTINUATION 1,000 ML IV ONE ×2 (12:36→14:30)
--- NOTE | 2023-08-26 12:38 | P.ANPRN ---
Procedure Note - Anesthesia - Nerve Block Performed Right Tyler Single Time Out Performed: Yes (1222) Date of Procedure: 08/26/23 Procedure Start Time: 12:25 Procedure Stop Time: 12:30 Location of Patient: PreOp Indication: Acute Post-Operative Pain, Requested by Surgeon Sedation Type: Sedate with meaningful contact maintained Preparation: Sterile Prep, Sterile Dressing Position: Supine Catheter: None Needle Types: Pajunk Needle Gauge: 21 Ultrasound used to visualize needle placement: Yes Ultrasound used to observe medication spread: Yes Injectate: 0.5% Ropivacaine (see comment for volume) (20 ml mixed with 4 mg of dexamethasone) Blood Aspirated: No Pain Paresthesia on Injection Noted: No Resistance on Injection: Normal Image Stored and Saved: Yes Events: Uneventful and Well Tolerated
[2023-08-26] MEDS ORDERED: PROPOFOL 10 MG/ML 20 ML VIAL IV ONE (13:44)
[2023-08-26] MEDS ORDERED: DEXAMETHASONE SOD PHOSPHATE 4 MG/ML 1 ML VIAL ONE (13:44)
[2023-08-26] MEDS ORDERED: PHENYLEPHRINE-0.9% NACL SYG 1,000 MCG/10 ML SYRINGE ONE (13:44)
[2023-08-26] MEDS ORDERED: ROPIVACAINE 5 MG/ML 30 ML VIAL ONE (13:44)
[2023-08-26] MEDS ORDERED: MIDAZOLAM 2 MG/2 ML VIAL ONE (13:44)
[2023-08-26] MEDS ORDERED: TRANEXAMIC 1,000 MG/100ML-NACL PREMIX BAG ONE (13:44)
[2023-08-26] MEDS ORDERED: LIDOCAINE 1% INJ 10MG/ML (20 ML MDV) ONE (13:44)
[2023-08-26] MEDS: ceFAZolin 3,000 MG in SODIUM CHLORIDE 0.9% IRRIGATIO 3,000 ML IRRIGATION ONE (14:17)
[2023-08-26] MEDS ORDERED: hydrOXYzine pamoate 25 MG CAP PO PRN (15:25)
[2023-08-26] MEDS ORDERED: NALOXONE 0.4 MG/ML 1 ML VIAL IV PRN (15:25)
[2023-08-26] MEDS ORDERED: MAGNESIUM HYDROXIDE 2,400 MG/30 ML CUP PO PRN (15:25)
[2023-08-26] MEDS ORDERED: HYDROmorphone 0.5 MG/0.5 ML SYRINGE IVP PRN ×2 (15:25)
[2023-08-26] MEDS ORDERED: HYDROcodone/APAP 5-325MG 1 EACH TAB PO PRN (15:25)
--- NOTE | 2023-08-26 15:37 | FL ---
EXAMINATION TYPE: FL guidance operating room, XR Hip Limited RT Intraoperative/procedural fluoroscopi c services were provided. Total fluoroscopy time is 23 seconds with a total of 6 submitted images to PACS. Please see the operative/procedural note for further details. DAP: 1.1074 Gycm2
--- NOTE | 2023-08-26 15:49 | P.OP ---
Date of Procedure: 08/26/23 Preoperative Diagnosis: Right hip severe osteoarthrosis Postoperative Diagnosis: Same Procedure(s) Performed: Right total hip arthroplastypress-fitanterior approach Implants: Depuy Corail size 10 standard collared press-fit femoral stem, 36+5 cobalt chrome femoral head, 54 mm Redby acetabular shell with neutral polyethylene liner. I did utilize one 6.5 mm x 25 mm cancellous screw. Anesthesia: spinal Surgeon: Apolinar Hassan Auto Striper #1: Dimas Landa Estimated Blood Loss (ml): 300 Pathology: none sent Condition: stable Disposition: PACU Indications for Procedure: The patient is a 73-year-old female who presents with progressive right hip pain secondary to osteoarthrosis despite conservative measures. A discussion of the risks and benefits of operative intervention versus continued conservative measures was made with the patient. She opted to proceed. Operative risks include infection, neurovascular injury, development of blood clots, leg length discrepancy, fracture, possible component loosening/failure and possible need for subsequent procedures was discussed. Informed consent was obtained. Operative Findings: As below Description of Procedure: The patient was brought to the operating room, and after induction of spinal anesthesia was placed supine on the Albertina table. Positioning was checked with fluoroscopy. The right hip was then prepped and draped in a normal fashion. A 12 cm incision was then made starting 2 fingerbreadths distal and 3 finger breaths posterior to the ASIS in line with the proximal femur. The skin was incised sharply. Subcutaneous tissues were divided sharply. Electrocautery was used for hemostasis. The fascia was split in line with skin incision. The interval between the sartorius and tensor fascia alina was then bluntly developed. The posterior fascia was opened with electrocautery. The lateral circumflex vessels were identified and cauterized prior to sectioning. A retractor was placed along the superior femoral neck as well as the anterior acetabular rim. A wide capsulotomy was performed. The neck cut was then made at a 45 angle to the shaft approximately 1 1/2 cm above the level of the lesser trochanter. The head was extracted. Attention was then paid towards preparing the acetabular. Anterior and posterior retractors were placed. The remaining capsular labral tissue sharply debrided clearly defining the acetabular margins. I began reaming with a 49 mm reamer taking care to initially medialize then reaming at 45 of abduction and 20 of anteversion. Sequential reaming is performed up to 53 mm. A trial 54 mm acetabular shell was inserted in the same orientation and was fully seated. There was good rim fit and stability. Positioning was checked with fluoroscopy. The final 54 mm acetabular shell was inserted again at 45 of abduction and 20 of anteversion. This was fully seated. There was good rim fit and stability. Again fluoroscopy was used to check the adequacy of placement. A neutral polyethylene liner was gently impacted. Care was taken to avoid any soft tissue interposition. Pulsatile lavage was utilized. Attention was then paid towards preparing the proximal femur. The central region was cleared of soft tissue. A canal finder was used to find the femoral canal. Sequential broaching was performed up to size 10 taking care to lateralize proximally. A calcar mill was used to fashion the medial calcar. There was good rotational stability. A standard neck along with a 36 mm +5 head was placed. The hip was gently reduced. Fluoroscopy was used to check the adequacy of positioning along with leg lengths. I felt both were good. The hip was gently dislocated. The trial components were removed. The final size 10 collared standard press-fit femoral stem was inserted parallel to the posterior cortex. This was fully seated and there was good rotational stability. A 36 mm +5 head was placed. This was gently impacted. The hip was then gently reduced. Final fluoroscopic view showed adequate placement implant along with gnosticism of leg length. Stability was checked with 80 of external rotation and 60 of extension of the right hip. The wound was irrigated with sterile lavage. The fascia was closed with running 0 Vicryl suture. There was minimal drainage therefore a deep drain was not placed. The second dose of IV TXA was given. The subcutaneous tissues were reapproximated interrupted 2-0 Vicryl sutures. The skin was reapproximated with 3-0 subcuticular strata fix suture. Skin tape and adhesive was applied. A sterile dressing was applied. The patient was then awoken from sedation and transferred to recovery room in good condition. Blood loss was estimated at 300 mL. No complications were incurred. Sponge and needle counts were correct at the end of the case. Dimas RIVERO assisted during the major components is case to include exposure, bone resection, implantation, and closure.
--- NOTE | 2023-08-26 16:48 | XR ---
EXAMINATION TYPE: XR Hip Limited AP RT DATE OF EXAM: 08/26/2023 Comparison: None Clinical History: 73-year-old female Status post hip surgery, assess surgical alignment Findings: Single image shows right hip total arthroplasty. Both acetabular cup and femoral stem components of t he prosthesis are well seated without periprosthetic fracture. Alignment grossly anatomic. Soft tissu e air related to recent operation. Impression: Uncomplicated postoperative appearance right total hip arthroplasty.
[2023-08-26] MEDS: droPERidol 5 MG/2 ML VIAL IVP ONE (18:50)
[2023-08-26] MEDS: LACTATED RINGERS 1,000 ML IV SCH (18:50)
[2023-08-26] MEDS: HYDROcodone/APAP 7.5-325MG 1 EACH TAB PO PRN (20:41)
[2023-08-26] MEDS: SENNOSIDES-DOCUSATE SODIUM 1 EACH TAB PO SCH (20:41)
[2023-08-27] MEDS: RIVAROXABAN 10 MG TAB PO SCH (07:40)
[2023-08-27 08:16] VITALS: BP 92/53; PULSE 70; RESP 16; TEMP 97.8
[2023-08-27 08:43] LABS: Basophils # (A) 0 X 10*3/uL (0.00-0.10); Basophils % (A) 0 %; Eosinophils # (A) 0 X 10*3/uL (0.04-0.35); Eosinophils % (A) 0 %; HCT 30.4 % (37.2-46.3); Lymphocytes # (A) 1.54 X 10*3/uL (0.90-5.00); Lymphocytes % (A) 13.1 %; MCH 32.8 pg (27.0-32.0); MCHC 32.9 g/dL (32.0-37.0); MCV 99.7 FL (80.0-97.0); Mean Platelet Volume 10.5 FL (9.5-12.2); Monocytes # (A) 1.22 X 10*3/uL (0.20-1.00); Monocytes % (A) 10.4 %; NRBC Per 100 WBC 0 X 10*3/uL (0.00-0.01); Neutrophils # (A) 8.93 X 10*3/uL (1.80-7.70); Platelet Count 225 X 10*3/uL (140-440); RBC 3.05 X 10*6/uL (4.10-5.20); RDW 12.7 % (11.5-14.5); WBC 11.75 X 10*3/uL (4.50-10.00)
--- NOTE | 2023-08-27 09:55 | P.DS ---
Providers Date of admission: 08/26/2023 Expected date of discharge: 08/27/23 Attending physician: Apolinar Hassan Consults: 08/26/23 15:25 Consult Physician Routine Consulting Provider: Rolf Kirkland Consult Reason/Comments: medical management s/p direct anterior right total hip arthroplasty Do you want consulting provider notified?: Yes Primary care physician: Sheri Gill Hospital Course: Date of admission: 08/26/2023 Date of discharge: 08/27/2023 Admission diagnosis: Right hip osteoarthritis Discharge diagnosis: Same Attending physician: Dr. Hassan Surgical procedures: Direct anterior right total hip arthroplasty Brief history: Patient is a 73-year-old female with a history of progressive primary right hip osteoarthritis. At this point patient has failed conservative treatment measures and has opted to proceed with a elective direct anterior right total hip arthroplasty. Hospital course: Details of patient's surgery can be found in operative report. Patient tolerated the procedure well and was subsequently transported to orthopedic floor. Patient's orthopeidc and medical care was provided daily. Patient had daily laboratory tests performed for evaluation of overall blood counts. Patient had daily physical therapy to include strengthening range of motion as well as education with walker ambulation. Patient was treated with Xarelto for their postoperative DVT prophylaxis during their inpatient stay. Patient was noted to have a relatively uneventful postoperative course. Patient reported satisfactory pain control with oral pain medications by postoperative day 1. Patient showed satisfactory progress with physical therapy. Patient moved steadily through the program and had no difficulty meeting the goals by postoperative day 1. Given patient's otherwise satisfactory course and having met physical therapy goals, plan is to discharge patient home on postoperative day 1. Discharge condition/disposition: Patient will be discharged home in stable condition. Discharge medications: Instructions are given on resumption of patient's normal daily medications per primary care recommendation, in addition patient will be prescribed [place]; senna; Eliquis 2.5 mg twice daily x 2 weeks. Discharge instructions: 1. Wound care and infection precautions, keep incision dry and covered while showering, no lotions, creams, moisturizers. No soaking, tubs, pools, hottubs. Do not scrub over the incision. 2. Weight-bear as tolerated with walker / cane until follow-up. 3. Ice and elevate when necessary. Do not exceed 20 minutes per hour with ice pack. 4. Utilize compression sleeve until seen at first follow up appointment. 5. Visiting nursing care. 6. Home physical therapy. 7. Pain meds and anticoagulants per prescription. 8. Pain medication has potential to cause constipation. Increase oral fluid and fiber intake. Contact primary care provider if you have not had a bowel movement within 48 hours after discharge 9. No anti-inflammatory medication until discussed at first post operative visit, this including Motrin, Aleve, Mobic, Diclofenac. 10. Follow up in office at 2 weeks postop with Clayton Patton PA-C / Dimas Landa PA-C 11. Follow up with your primary care doctor 7-10 days after discharge. 12. Contact [facility] with any questions, . Assessment: Right hip osteoarthritis Procedures: Direct anterior right total hip arthroplasty Patient Condition at Discharge: Good Plan - Discharge Summary Discharge Rx Participant: No New Discharge Prescriptions: New Apixaban [Eliquis] 2.5 mg PO BID #60 tab HYDROcodone/APAP 7.5-325MG [[place] 7.5-325] 1 - 2 tab PO Q6HR PRN #32 tab PRN Reason: Pain Sennosides/Docusate Sodium [Senna Plus 8.6-50 mg Softgel] 1 each PO DAILY #20 capsule Continue clonazePAM [KlonoPIN] 0.25 mg PO DAILY Cholecalciferol [Vitamin D3 (25 Mcg = 1000 Iu)] 2,000 unit PO W/LUNCH Ascorbic Acid [Vitamin C] 500 mg PO DAILY Biotin [Biotin Disolve] 5,000 mcg PO DAILY Atorvastatin [Lipitor] 10 mg PO DAILY lisinopriL [Zestril] 5 mg PO DAILY No Action Acetaminophen [Tylenol Extra Strength] 1,000 mg PO DIRECTED PRN PRN Reason: Pain Naproxen Sodium [Aleve] 220 mg PO BID PRN PRN Reason: Pain Discharge Medication List Cholecalciferol [Vitamin D3 (25 Mcg = 1000 Iu)] 2,000 unit PO W/LUNCH 02/08/16 [History] clonazePAM [KlonoPIN] 0.25 mg PO DAILY 02/08/16 [History] lisinopriL [Zestril] 5 mg PO DAILY 10/05/20 [History] Ascorbic Acid [Vitamin C] 500 mg PO DAILY 10/12/20 [History] Biotin [Biotin Disolve] 5,000 mcg PO DAILY 10/12/20 [History] Atorvastatin [Lipitor] 10 mg PO DAILY 04/20/21 [History] Acetaminophen [Tylenol Extra Strength] 1,000 mg PO DIRECTED PRN 08/22/23 [History] Naproxen Sodium [Aleve] 220 mg PO BID PRN 08/22/23 [History] Apixaban [Eliquis] 2.5 mg PO BID #60 tab 08/27/23 [Rx] HYDROcodone/APAP 7.5-325MG [[place] 7.5-325] 1 - 2 tab PO Q6HR PRN #32 tab 08/27/23 [Rx] Sennosides/Docusate Sodium [Senna Plus 8.6-50 mg Softgel] 1 each PO DAILY #20 capsule 08/27/23 [Rx] Follow up Appointment(s)/Referral(s): Dimas Landa PAC [PHYSICIAN BUSINESS CONTINUITY MANAGER] - 09/08/23 9:00 am Patient Instructions/Handouts: Anterior Hip Replacement (DC), Anterior Hip Replacement (GEN) Activity/Diet/Wound Care/Special Instructions: Orthopedic Discharge Instructions: 1. Wound care and infection precautions, keep incision dry and covered while showering, no lotions, creams, moisturizers. No soaking, pools, hot tubs. Do not scrub over incision. 2. Weight-bear as tolerated with walker / cane until follow-up. 3. Ice and elevate when necessary. Do not exceed 20 minutes per hour with ice pack. 4. Utilize compression sleeve until seen at first follow up appointment. 5. Pain meds and anticoagulants per prescription. 6. Pain medication has potential to cause constipation. Increase oral fluid and fiber intake. Contact primary care provider if you have not had a bowel movement within 48 hours after discharge. 7. No anti-inflammatory medication until discussed at first post operative visit, this including Motrin, Aleve, Mobic, Diclofenac. 8. Follow up in office at 2 weeks postop with Clayton Patton PA-C / Dimas Landa PA-C 9. Follow up with your primary care doctor 7-10 days after discharge. 10. Contact [facility] with any questions, . Keep incision clean, dry, intact. While showering, cover fusion tape with Saran wrap. Keep fusion tape on until follow-up appointment in office in 2 weeks Discharge Disposition: HOME WITH HOME HEALTH SERVICES
--- NOTE | 2023-08-27 10:40 | P.CONS ---
History of Present Illness - Reason for Consult Consult date: 08/27/23 Medical management hypertension Requesting physician: Apolinar Hassan - Chief Complaint Right hip osteoarthritis status post surgical repair - History of Present Illness This is a pleasant 73-year-old female with past medical history significant for osteoporosis, HTN, HLD and multiple other medical issues status post right total hip arthroplasty anterior approach. Tolerated procedure well. Recently completed stairs with PT. pain currently controlled but reported increased pain with exertion. Denies lightheadedness dizziness or focal deficits. Denies nausea vomiting or diarrhea. Passing flatus. Spontaneous voiding. She presently denies fever, chills, chest pain, shortness of breath or abdominal pain. Blood pressures mildly soft, will resume antihypertensives tomorrow. Review of Systems ROS Statement: Those systems with pertinent positive or pertinent negative responses have been documented in the HPI. ROS Other: All systems not noted in ROS Statement are negative. 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 History of Any Multi-Drug Resistant Organisms: None Reported Past Surgical History: Orthopedic Surgery Additional Past Surgical History / Comment(s): rt knee arthrocopy, laparoscopy,left hip oksana placed,laposcopy 1982, right benign bx with marker- 09/2020. colonoscopy Past Anesthesia/Blood Transfusion Reactions: No Reported Reaction Past Psychological History: Anxiety Additional Psychological History / Comment(s): . Smoking Status: Former smoker, Vaper Past Alcohol Use History: Occasional Additional Past Alcohol Use History / Comment(s): Quit smoking 2012, smoked 1/2 - 1 ppd x 25 yrs. Current e-cig use does not inhale. tactile per pt Past Drug Use History: None Reported - Past Family History Mother Family Medical History: Cancer, Diabetes Mellitus, Hyperlipidemia, Hypertension, Thyroid Disorder Additional Family Medical History / Comment(s): uterine Father Family Medical History: Cancer, Coronary Artery Disease (CAD), Hyperlipidemia, Hypertension Additional Family Medical History / Comment(s): Esophageal CA. Medications and Allergies Home Medications Medication Instructions Recorded Confirmed Type Cholecalciferol [Vitamin D3 (25 2,000 unit PO W/LUNCH 02/08/16 08/22/23 History Mcg = 1000 Iu)] clonazePAM [KlonoPIN] 0.25 mg PO DAILY 02/08/16 08/22/23 History lisinopriL [Zestril] 5 mg PO DAILY 10/05/20 08/22/23 History Ascorbic Acid [Vitamin C] 500 mg PO DAILY 10/12/20 08/22/23 History Biotin [Biotin Disolve] 5,000 mcg PO DAILY 10/12/20 08/22/23 History Atorvastatin [Lipitor] 10 mg PO DAILY 04/20/21 08/22/23 History Acetaminophen [Tylenol Extra 1,000 mg PO DIRECTED PRN 08/22/23 08/22/23 History Strength] Naproxen Sodium [Aleve] 220 mg PO BID PRN 08/22/23 08/22/23 History Apixaban [Eliquis] 2.5 mg PO BID #60 tab 08/27/23 Rx HYDROcodone/APAP 7.5-325MG [[place] 1 - 2 tab PO Q6HR PRN #32 tab 08/27/23 Rx 7.5-325] Sennosides/Docusate Sodium [Senna 1 each PO DAILY #20 capsule 08/27/23 Rx Plus 8.6-50 mg Softgel] Allergies Allergy/AdvReac Type Severity Reaction Status Date / Time alendronate sodium Allergy Chest Pain Verified 08/26/23 11:20 [From Fosamax] Penicillins Allergy Unknown Verified 08/26/23 11:20 Childhood Sulfa (Sulfonamide Allergy Unknown Verified 08/26/23 11:20 Antibiotics) triamterene Allergy excessive Verified 08/26/23 11:20 urination diphenhydramine AdvReac light-heade Verified 08/26/23 11:20 [From Benadryl] d dipyridamole [From Aggrenox] AdvReac Nausea & Verified 08/26/23 11:20 Vomiting, lt-headed Physical Exam Vitals: Vital Signs Temp Pulse Resp BP Pulse Ox 08/27/23 07:20 70 16 08/27/23 07:00 97.8 F 70 16 92/53 95 08/27/23 01:35 98.1 F 77 18 91/55 94 L 08/26/23 20:00 98.2 F 82 19 94/53 92 L 08/26/23 17:30 78 18 136/63 98 08/26/23 17:00 70 18 111/65 98 08/26/23 16:30 76 18 136/60 95 08/26/23 16:09 67 16 112/56 96 08/26/23 15:54 73 18 115/58 94 L 08/26/23 15:39 69 14 103/63 97 08/26/23 12:35 63 16 112/81 100 08/26/23 11:44 97.8 F 70 16 130/68 97 Intake and Output 08/26/23 08/27/23 08/27/23 22:59 06:59 14:59 Intake Total 200 Output Total 300 Balance -100 Intake: IV 200 Output: Estimated Blood Loss 300 Other: Voiding Method Toilet Toilet Bedside Commode Bedside Commode # Voids 4 # Bowel Movements 1 Weight 60.4 kg General: well nourished, well developed, NAD. Vitals reviewed Eyes: PERRL, EOMI, conjunctiva normal HENT: normocephalic, mucus membranes moist Neck: supple, no JVD Lungs: normal respiratory effort, no wheezes or rales CV: Regular rate and rhythm, no murmur. Peripheral pulses 2+ Abdomen: soft, nondistended, no organomegaly EXTREMITIES: Right lower extremity dressing clean dry and intact, tender, minimal edema and ecchymosis. No calf tenderness. Denies calf pain. Skin: warm and dry. Neuro: A&Ox3, normal mood and affect Results CBC & Chem 7: 08/27/23 05:39 Labs: Abnormal Lab Results - Last 24 Hours (Table) 08/27/23 Range/Units 05:39 WBC 11.75 H (4.50-10.00) X 10*3/uL RBC 3.05 L (4.10-5.20) X 10*6/uL Hgb 10.0 L (12.0-15.0) g/dL Hct 30.4 L (37.2-46.3) % MCV 99.7 H (80.0-97.0) FL MCH 32.8 H (27.0-32.0) pg Immature Gran # 0.06 H (0.00-0.04) X 10*3/uL Neutrophils # 8.93 H (1.80-7.70) X 10*3/uL Monocytes # 1.22 H (0.20-1.00) X 10*3/uL Eosinophils # 0 L (0.04-0.35) X 10*3/uL Assessment and Plan Assessment: Right hip osteoarthritis , status post right total hip arthroplasty, anterior approach Hypertension Hyperlipidemia Plan: Continue on current medication resume ,monitoring and symptomatic treatment. Maintain aggressive pulmonary toileting with incentive spirometer. Blood pressure is mildly soft, hold antihypertensives today, resume tomorrow. Pain management and DVT prophylaxis as per orthopedics .discharge planning in progress as per orthopedics. Follow-up with PCP in 2 weeks. Thank you for the consult. The impression and plan of care has been dictated as directed. : I performed a history and examination of this patient, discussed the same with the dictator. I agree with the dictator's note ,documented as a scribe. Any ad ditional findings or plans will be noted.
[2023-08-27] MEDS: PANTOPRAZOLE 40 MG/10 ML VIAL IVP SCH (11:23)
--- NOTE | 2023-08-27 11:27 | P.PN ---
Subjective Progress Note Date: 08/27/23 Principal diagnosis: Right hip osteoarthritis Patient was seen at bedside this morning sitting up in chair. Patient says she just finished working with therapy and walked out of the hallway and up and down stairs. Patient says she does have a walker for home. Patient says she is looking forward to going home later today. Patient says she has urinated since surgery yesterday without issue. Patient says she has not had a bowel yet, however, she has been passing gas. Patient says pain is controlled with medication. Patient denies chest pain, fever, shortness of breath, nausea, vomiting, change in vision, loss of bowel/bladder control. Objective - Vital Signs Vital signs: Vital Signs Temp 97.8 F 08/27/23 07:00 Pulse 70 08/27/23 07:00 Resp 16 08/27/23 07:00 BP 92/53 08/27/23 07:00 Pulse Ox 95 08/27/23 07:00 FiO2 Intake & Output 08/26/23 08/27/23 08/27/23 18:59 06:59 18:59 Intake Total 1551 Output Total 300 Balance 1251 Weight 60.4 kg Intake: IV 1551 Output: Estimated Blood Loss 300 Other: Voiding Method Toilet Bedside Commode # Voids 4 # Bowel Movements 1 - Exam Right hip: Incision is clean, dry, and intact. The exofin fusion tape is in good condition. There is minimal soft tissue swelling and ecchymosis surrounding the medial and lateral aspects of the incision. Calf is soft, no tenderness with palpation. Plantar flexion, dorsiflexion, EHL, FHL are intact. Sensory exam to light touch throughout the extremity is intact, dorsal pedis pulses 2+. - Labs CBC & Chem 7: 08/27/23 05:39 Labs: Abnormal Lab Results - Last 24 Hours (Table) 08/27/23 Range/Units 05:39 WBC 11.75 H (4.50-10.00) X 10*3/uL RBC 3.05 L (4.10-5.20) X 10*6/uL Hgb 10.0 L (12.0-15.0) g/dL Hct 30.4 L (37.2-46.3) % MCV 99.7 H (80.0-97.0) FL MCH 32.8 H (27.0-32.0) pg Immature Gran # 0.06 H (0.00-0.04) X 10*3/uL Neutrophils # 8.93 H (1.80-7.70) X 10*3/uL Monocytes # 1.22 H (0.20-1.00) X 10*3/uL Eosinophils # 0 L (0.04-0.35) X 10*3/uL Assessment and Plan Assessment: 1. Right hip osteoarthritis -Postop day 1 status post direct anterior right total hip arthroplasty Plan: 1. Right hip osteoarthritis -direct anterior right total hip arthroplasty form yesterday, 08/26/2023. Patient stable at bedside this morning. Patient did do well with therapy this morning. Patient does have a walker for home. Discharge home today with health services. 2. Appreciate medical management 3. Pain management -Bas[place] 4. DVT prophylaxis -Xarelto in hospital. Going home with Eliquis 2 point milligrams twice daily x 2 weeks 5. GI prophylaxis -senna 6. PT/OT -weightbearing as tolerated with walker 7. Encourage incentive spirometer use 8. Discharge planning -home today with health services Time with Patient: Less than 30
== END 2023-08-27 13:42 | disposition home health service (06) ==
LOC: OR 10:54 → 4SSUR 17:58 → OR 08-27 13:42
PROVIDERS: ATTEND Orthopaedic Surgery
DX: M16.11 Unilateral primary osteoarthritis, right hip (principal); E78.5 Hyperlipidemia, unspecified; G89.18 Other acute postprocedural pain; I10 Essential (primary) hypertension; E07.9 Disorder of thyroid, unspecified; Z87.891 Personal history of nicotine dependence; Z88.0 Allergy status to penicillin; Z88.1 Allergy status to other antibiotic agents; Z88.2 Allergy status to sulfonamides; Z88.8 Allergy status to other drugs, medicaments and biological substances; Z79.890 Hormone replacement therapy; Z79.899 Other long term (current) drug therapy
CPT/HCPCS: 97162; 85025; 73501; 27130; 64447; J2250; J1100; J0690 ×3; J2405

== ENCOUNTER → 2023-12-08 | Outpatient (CLI) | payer MEDICARE ==
--- NOTE | 2023-12-08 15:15 | MM ---
Reason for Exam: Screening (asymptomatic). Last mammogram was performed 1 year(s) and 3 month(s) ago. Patient History: Menarche at age 12. First Full-Term at age 37. Late child-bearing (after 30). Postmenopausal. 10/19/2020, Benign Core Biopsy on the right side. 08/08/2014, MG discontinued stereo core LT on the left side. Risk Values: Sonam 5 year model risk: 2.9%. NCI Lifetime model risk: 6.6%. Prior Study Comparison: 04/17/2021 Right Diagnostic Mammogram, [facility]. 09/11/2021 Bilateral MG 3D screening mammo w/cad, [facility]. 09/13/2022 Bilateral MG 3D screening mammo w/cad, [facility]. Tissue Density: The breasts are heterogeneously dense, which may obscure small masses. Findings: Analyzed By CAD. The pattern is symmetrical. No significant interval change is evident. Core marker is within the outer right breast. Benign calcification is present bilaterally. Calcification appears stable. No suspicious groups of microcalcifications, spiculated or lobular masses, architectural distortion or other secondary signs of malignancy are mammographically apparent. Overall Assessment: Benign, BI-RAD 2 Management: Screening Mammogram of both breasts in 1 year. A negative mammogram report should not preclude additional follow up of suspicious palpable abnormalities. Patient should continue monthly self breast exam. A clinical breast exam by your physician is recommended on an annual basis and results should be correlated with mammographic findings. Note on Sonam scores and lifetime risk: 1. A Sonam score greater than 3% is considered moderate risk. If this is the case, consider specialist referral to assess eligibility for a risk reducing agent. 2. If overall lifetime risk for the development of breast cancer is 20% or higher, the patient may qualify for future screening with alternating mammogram and breast MRI. [facility], , 12/08/2023 3:12 PM. Electronically signed and approved by: Robin Castillo D.O. Radiolog[facility]
== END | disposition home or self-care (01) ==
LOC: RADMAMWWP 10:37
PROVIDERS: ATTEND Surgery
DX: Z12.31 Encounter for screening mammogram for malignant neoplasm of breast
CPT/HCPCS: 77063; 77067

== ENCOUNTER → 2024-01-28 | Outpatient (CLI) | payer MEDICARE ==
--- NOTE | 2024-01-28 13:25 | CTL ---
EXAMINATION TYPE: CT Low Dose Lung DATE OF EXAM ORDERED: 01/28/2024 COMPARISON: CT Low Dose Lung 01/10/2023, 12/05/2021, 11/03/2020, 10/27/2019, 07/17/2018 CLINICAL INDICATION: Female, 73 years old with history of Z12.2 Screening; Z87.891 Former smoker; PH[facility] , History of tobacco use., Lung cancer screening, History of Smoking/tobacco use. TECHNIQUE: Low dose computed tomography scan was performed through the chest at [address] DLP: 70.[address] CTDI: 1.9 mGy Automated exposure control for dose reduction was used. CT DIAGNOSTIC QUALITY: Satisfactory FINDINGS: Nodules: Stable right middle lobe 4.4 mm pulmonary nodule (series 6, image 43). No new or enlarging pulmonary nodule. LUNGS: COPD: Severity: Mild Fibrosis: Severity: None Lymph nodes: None Other findings: Streaky linear scarring or atelectasis within the right middle lobe and bilateral low er lobes. RIGHT PLEURAL SPACE: Effusion: None Calcification: None Thickening: None Pneumothorax: None LEFT PLEURAL SPACE: Effusion: None Calcification: None Thickening: None Pneumothorax: None HEART: Heart Size: Normal Coronary Calcification: Small Pericardial Effusion: None OTHER FINDINGS: Upper abdomen: None Bony thorax: None Supraclavicular region: None Other: Mild atherosclerotic calcification of the aorta and its branches. IMPRESSION: 1. Stable right middle lobe sub-5 mm pulmonary nodule. No new or enlarging pulmonary nodule. 2. Mild COPD changes. CT LUNG RAD AND CT CHEST RECOMMENDATION: Lung-Rad 2 Benign Appearance or Behavior: Continue annual sc reening with LDCT in 12 months. S Modifier (other clinically significant findings): None [facility], , 01/28/2024 1:23 PM
== END | disposition home or self-care (01) ==
LOC: RADCTMAIN 11:07
PROVIDERS: ATTEND Family Medicine
DX: Z12.2 Encounter for screening for malignant neoplasm of respiratory organs (principal); F17.210 Nicotine dependence, cigarettes, uncomplicated; J44.9 Chronic obstructive pulmonary disease, unspecified; R91.1 Solitary pulmonary nodule
CPT/HCPCS: 71271

== ENCOUNTER → 2024-06-14 | Outpatient (CLI) | payer MEDICARE ==
[2024-06-14 13:30] LABS: African American GFR (CKD) >90 (>60 ml/min/1.73 sqM); Blood Urea Nitrogen 17 mg/dL (7-17); Non-African American GFR(CKD) >90 (>60 ml/min/1.73 sqM)
--- NOTE | 2024-06-14 15:02 | CT ---
EXAMINATION TYPE: CT abdomen pelvis w con CT DLP: 552.20 mGycm, Automated exposure control for dose reduction was used. DATE OF EXAM: 06/14/2024 2:47 PM COMPARISON: Abdominal radiograph 05/05/2024, CT abdomen and pelvis 10/04/2021 CLINICAL INDICATION:Female, 74 years old with history of R14.0; ABDOMINAL PAIN, BLOATING, CONSTIPATIO N TECHNIQUE: Standard CT of the abdomen and pelvis following the administration of 100 cc of Isovue 3 00 IV contrast material and oral contrast. Coronal and sagittal reformats were performed. FINDINGS: LOWER CHEST: Bibasilar linear scarring and/or atelectasis. Elevation of the right hemidiaphragm. ABDOMEN LIVER: Unremarkable GALLBLADDER AND BILE DUCTS: Unremarkable. PANCREAS: Unremarkable. SPLEEN: Unremarkable. ADRENAL GLANDS: Right adrenal gland is unremarkable. Stable thickening of the left adrenal gland whic h may represent hyperplasia. KIDNEYS AND URETERS: No evidence of hydronephrosis. The kidneys enhance symmetrically. Right renal lo wer pole 3.5 cm cyst. Left renal lower pole 0.8 cm cyst. Couple nonobstructive right renal calculi la rgest measuring up to 6 mm. Additional nonobstructing left renal calculus measuring up to 5 mm. Contr ast is demonstrated within both collecting systems and proximal ureters on the delayed phase. PELVIS BLADDER: Unremarkable REPRODUCTIVE: Unremarkable. ABDOMEN & PELVIS STOMACH AND BOWEL: Stomach and duodenum are unremarkable. Enteric contrast reaches the ascending colo n. Mild amount of stool is present within the proximal colon. Scattered colonic diverticulosis withou t evidence for acute diverticulitis. The appendix is within normal limits. No evidence of bowel obstr uction. PERITONEUM: No evidence of pneumoperitoneum or free fluid. VASCULATURE: Mild atherosclerotic calcifications are present throughout the abdominal aorta and its b ranches. No evidence of aortic aneurysm. MUSCULOSKELETAL: No acute osseous abnormalities. Postsurgical changes from right hip arthroplasty and the left proximal femur fixation. This creates streak artifact which limits evaluation. Moderate ost eoarthritic changes of the left hip. Degenerative disc disease at L5-S1. LYMPH NODES: No gross evidence for lymphadenopathy. SOFT TISSUE/ABDOMINAL WALL: Unremarkable IMPRESSION: 1. No CT evidence for acute abdominal/pelvic process. 2. Colonic diverticulosis without evidence for acute diverticulitis. 3. Nonobstructive bilateral renal calculi. [facility], , 06/14/2024 3:00 PM
== END | disposition home or self-care (01) ==
LOC: RADCTMAIN 12:45
PROVIDERS: ATTEND Family Medicine
DX: K57.30 Diverticulosis of large intestine without perforation or abscess without bleeding (principal); N20.0 Calculus of kidney
CPT/HCPCS: 82565; 84520; 74177; 36415; Q9967